=== PATIENT | male | born 1970 | race African-American/Black ===

== ENCOUNTER 2016-09-17 16:11 | Emergency (ER) | payer OTHER ==
[~2016-09-17] VITALS: Ht 172.7 cm; Wt 124.7 kg
--- OUTSIDE RECORDS SUMMARY | 2016-09-17 16:17 | XMS REPORT ---
Author Author MYCHAL MONDRAGON Organization [employer] Address Unknown Phone Unavailable Care Team Providers Care Kit Planner Name Role Phone MYCHAL MONDRAGON CP Unavailable Allergies No Known Allergies Problems Problem Type Condition Code Onset Dates Condition Status Problem Cellulitis and abscess of leg, except foot 682.6 Active Problem Unspecified otitis media 382.9 Active Problem Carpal tunnel syndrome of left wrist G56.02 Active Problem Impacted cerumen 380.4 Active Medications No Known Medications Results No Known Results Summary Purpose [employer] Submission
--- NOTE | 2016-09-17 16:36 | ED General ---
General Chief Complaint: General Problems/Pain Stated Complaint: R HIP AND L WRIST PAIN Source of Information: Patient Exam Limitations: No Limitations History of Present Illness Time Seen by Provider: 16:25 Initial Comments This 46-year-old gentleman presents to the emergency room with pain in his right hip and left wrist. These pains are actually chronic. He reports having an appointment already set up with Onesimo Jones at [facility]. He gives an inconsistent history regarding what vdzz-pij-yxrwocg medications he has tried and their efficacy. He reports having a history of carpal tunnel syndrome. He is ambulatory. He denies any trauma, strain, or recent injury of any kind. Allergies and Home Medications Allergies Coded Allergies: No Known Drug Allergies (Unverified , 09/17/16) Home Medications Gemfibrozil 600 Mg Tablet 600 MG PO HS (Reported) Tramadol HCl 50 Mg Tablet #10 50 MG PO Q6H PRN PRN PAIN Prescribed by: BOLA CABRERA on 09/17/16 9115 Constitutional: no symptoms reported EENTM: no symptoms reported Respiratory: no symptoms reported Cardiovascular: no symptoms reported Gastrointestinal: no symptoms reported Genitourinary: no symptoms reported Musculoskeletal: see HPI Skin: no symptoms reported Psychiatric/Neurological: Other (frequent twitching and dystonic movements noted) Hematologic/Lymphatic: No Symptoms Reported Past Bujngmr-Raglzq-Xovvgh Hx Patient Social History Alcohol Use: Denies Use Recreational Drug Use: No Smoking Status: Current Everyday Smoker Type Used: Cigarettes Recent Foreign Travel: No Contact w/Someone Who Travel: No Recent Hopitalizations: No Surgeries HX Surgeries: No Respiratory Hx Respiratory Disorders: No Cardiovascular Hx Cardiac Disorders: Yes Cardiac Disorders: High Cholesterol Neurological Hx Neurological Disorders: No Genitourinary Hx Genitourinary Disorders: No Gastrointestinal Hx Gastrointestinal Disorders: No Musculoskeletal Hx Musculoskeletal Disorders: Yes (carpal tunnel syndrome) Endocrine Hx Endocrine Disorders: No HEENT HX ENT Disorders: No Cancer Hx Cancer: No Psychosocial Hx Psychiatric Problems: No Physical Exam Vital Signs Vital Sign - Last 12Hours 09/17/16 16:20 Temp 98.1 Pulse 107 Resp 20 B/P 132/90 Pulse Ox 96 Capillary Refill : General Appearance: No Apparent Distress WD/WN Obese HEENT: PERRL/EOMI Normal ENT Inspection Respiratory: Lungs Clear Normal Breath Sounds No Accessory Muscle Use No Respiratory Distress Cardiovascular: Regular Rate, Rhythm No Edema No Murmur Extremity: Normal Inspection Normal Range of Motion Other (Tinel's and Phalen' s test positive. Minimal pain with external rotation of the right hip. 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 A short course of Ultram was prescribed to help hold him over until his primary care and orthopedic appointments. Departure Impression Impression: Primary Impression: Left wrist pain Additional Impression: Right hip pain Disposition: HOME, SELF-CARE Condition: Improved Departure-Patient Inst. Decision time for Depature: 16:35 Referrals: NO,LOCAL PHYSICIAN (PCP/Family) Primary Care Physician Patient Instructions: NO INSTRUCTIONS GIVEN Add. Discharge Instructions: You may take ibuprofen up to 800 mg every 8 hours as needed for pain. Add Tylenol (acetaminophen) up to 1000 mg every 6 hours as needed for additional pain relief. For pain that is not controlled by bozd-tyc-lgeypdf medications, use Ultram (tramadol) as prescribed. Follow-up with your primary care provider or orthopedic provider as soon as possible. All discharge instructions reviewed with patient and/or family. Voiced understanding. Scripts Tramadol HCl (Ultram)50 Mg [id number] Mg PO Q6H PRN PAIN #10 TAB Prov:BOLA BRINK MD 09/17/16 BOLA BRINK MD Sep 17, 2016 16:36
[2016-09-17] MEDS ORDERED: GEMF600T PO (16:37)
[2016-09-17] MEDS ORDERED: TRAM-42 PO (16:44)
[2016-09-17] MEDS ORDERED: KETOROLAC 60 MG/2 ML VIAL IM ONE (16:45)
[2016-09-17 16:53] VITALS: BP 132/90
== END 2016-09-17 16:53 | disposition home or self-care (01) ==
LOC: EDUNIT# 16:11 → ER 16:14
DX: M25.551 Pain in right hip (principal); M25.532 Pain in left wrist; F17.210 Nicotine dependence, cigarettes, uncomplicated
CPT/HCPCS: 96372; 99281

== ENCOUNTER 2016-09-27 04:46 | Emergency (ER) | payer OTHER ==
[~2016-09-27] VITALS: Ht 172.7 cm; Wt 124.7 kg
[~2016-09-27 04:46] MED LIST: GEMF600T PO; TRAM-42 PO
[2016-09-27 05:13] LABS: BILIRUBIN,URINE NEGATIVE (NEGATIVE); KETONES,URINE NEGATIVE (NEGATIVE); LEUKOCYTE ESTERASE ,URINE NEGATIVE (NEGATIVE); NITRITE,URINE NEGATIVE (NEGATIVE); PH,URINE 6 (5-9); PROTEIN,URINE 1+ (NEGATIVE); UROBILINOGEN,URINE NORMAL (NORMAL)
[2016-09-27 05:17] LABS: SQUAMOUS EPITHELIAL CELL,UR RARE /HPF; WBC,URINE RARE /HPF
--- NOTE | 2016-09-27 06:17 | Diagnostic Imaging Report ---
PROCEDURE: CT urinary tract, rule out kidney stone. TECHNIQUE: Multiple contiguous axial images were obtained through the abdomen and pelvis without the use of intravenous contrast. INDICATION: Urinary retention. FINDINGS: The lung bases are clear. The kidneys are symmetrical with smooth renal outlines. No renal calculi are present. No hydronephrosis. Ureters appear normal bilaterally. Bladder is empty. There is a calcification noted at the bladder on the left measuring 3 mm which could represent a nonobstructing ureteral calculus or a phlebolith. Bowel gas pattern appears normal throughout. The appendix is normal. There is no diverticulitis. There is no free air or free fluid. Liver appears normal. Gallbladder is normal. Pancreas and spleen are normal. The adrenal glands are normal. The lung bases are clear. IMPRESSION: Question of nonobstructing 3 mm calculus in the distal left ureter versus phlebolith. No other abnormalities noted. Dictated by: Dictated on workstation # [id number]
--- NOTE | 2016-09-27 06:21 | ED GU-Male ---
General Chief Complaint: -Male Stated Complaint: SHARP PAIN IN TESTICAL Nursing Triage Note: Reports 4 days of intermittant pain in L testicle region. Pt states tonight he just can not sleep r/t pain. Some change in urinary flow of not a good stream. Source: patient Exam Limitations: no limitations History of Present Illness Time seen by provider: 04:57 Initial Comments This patient presents to emergency room with pain in the left testicle. It has been intermittent for about 4 days and sharp in nature. Tonight it became more intense and he was unable to sleep. He has a feeling of urinary and fecal urgency. He reports a weak stream and only small quantities of urine production with each void. He feels a pressure in the rectal area and a persistent sensation to have a bowel movement. No fevers. No hematuria. Allergies and Home Medications Allergies Coded Allergies: No Known Drug Allergies (Unverified , 09/17/16) Home Medications Ciprofloxacin HCl 500 Mg Tablet #20 500 MG PO BID Prescribed by: BOLA CABRERA on 09/27/16 0630 Gemfibrozil 600 Mg Tablet 600 MG PO HS (Reported) Hydrocodone/Acetaminophen 1 Each Tablet #20 1-2 EACH PO Q6H PRN PRN PAIN Prescribed by: BOLA CABRERA on 09/27/16 0630 Tramadol HCl 50 Mg Tablet #10 50 MG PO Q6H PRN PRN PAIN Prescribed by: BOLA CABRERA on 09/17/16 1644 Constitutional: no symptoms reported EENTM: no symptoms reported Respiratory: no symptoms reported Cardiovascular: no symptoms reported Gastrointestinal: see HPI Genitourinary: see HPI Musculoskeletal: no symptoms reported Skin: no symptoms reported Psychiatric/Neurological: No Symptoms Reported Endocrine: No Symptoms Reported Past Kopyidz-Ngbhgk-Yobwac Hx Patient Social History Alcohol Use: Denies Use Recreational Drug Use: No Smoking Status: Current Everyday Smoker Type Used: Cigarettes 2nd Hand Smoke Exposure: No Recent Foreign Travel: No Contact w/Someone Who Travel: No Recent Infectious Disease Expo: No Recent Hopitalizations: No Seasonal Allergies Seasonal Allergies: No Surgeries HX Surgeries: No Respiratory Hx Respiratory Disorders: No Cardiovascular Hx Cardiac Disorders: Yes Cardiac Disorders: High Cholesterol Neurological Hx Neurological Disorders: No Reproductive System Hx Reproductive Disorders: No Genitourinary Hx Genitourinary Disorders: No Gastrointestinal Hx Gastrointestinal Disorders: No Musculoskeletal Hx Musculoskeletal Disorders: Yes (carpal tunnel syndrome, sciatica) Musculoskeletal Disorders: Arthritis Endocrine Hx Endocrine Disorders: Yes (borderline diabetes) HEENT HX ENT Disorders: No Cancer Hx Cancer: No Psychosocial Hx Psychiatric Problems: No Integumentary HX Skin/Integumentary Disorder: No Blood Transfusions Hx Blood Disorders: No Physical Exam Vital Signs Vital Sign - Last 12Hours 09/27/16 04:52 Temp 97.8 Pulse 82 Resp 20 B/P 156/103 Pulse Ox 99 O2 Delivery Room Air Capillary Refill : Less Than 3 Seconds General Appearance: WD/WN moderate distress HEENT: PERRL/EOMI pharynx normal Neck: normal inspection Cardiovascular: regular rate, rhythm no edema no murmur Respiratory: lungs clear normal breath sounds no respiratory distress no accessory muscle use Gastrointestinal: normal bowel sounds soft tenderness (left lower quadrant) Rectal: normal rectal tone tenderness Male: no hernia testicular tenderness (left) Extremities: normal inspection no pedal edema 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 no motor/sensory deficits alert normal mood/affect oriented x 3 Skin: normal color warm/dry Progress/Results/Core Measures Results/Orders Lab Results Laboratory Tests Test 09/27/16 05:00 Range/Units Urine Bacteria NEGATIVE /HPF Urine Bilirubin NEGATIVE NEGATIVE Urine Casts NONE /LPF Urine Clarity CLEAR Urine Color YELLOW Urine Crystals NONE /LPF Urine Culture Indicated NO Urine Glucose (UA) NEGATIVE NEGATIVE Urine Ketones NEGATIVE NEGATIVE Urine Leukocyte Esterase NEGATIVE NEGATIVE Urine Mucus SMALL H /LPF Urine Nitrite NEGATIVE NEGATIVE Urine Protein 1+ H NEGATIVE Urine RBC 2-5 H /HPF Urine RBC (Auto) 4+ H NEGATIVE Urine Specific [place] 1.015 L 1.016-1.022 Urine Squamous Epithelial Cells RARE /HPF Urine Urobilinogen NORMAL NORMAL MG/DL Urine WBC RARE /HPF Urine pH 6 5-9 My Orders Orders-BOLA BRINK MD Ua Culture If Indicated (09/27/16 04:56) Bladder Scan (09/27/16 05:03) Us Scrotum (Testicle) [id number] (09/27/16 05:21) Chlamydia Dna Urine Test (09/27/16 05:37) Neis Brayan Dna Urine Test (09/27/16 05:37) Ct Abd/Pelvis Wo(Kidney Stone) (09/27/16 06:03) Abdomen/Kub 1view (09/27/16 06:21) Ketorolac Injection (Toradol Injection) (09/27/16 06:30) Hydrocodone/Apap 5/325 Tablet (Lortab 5 (09/27/16 06:30) Medications Given in ED Current Medications Medications Dose Ordered Sig/Jeet Route Start Time Stop Time Status Last Admin Dose Admin Acetaminophen/ Hydrocodone Bitart 1 tab ONCE ONCE PO 09/27/16 06:30 09/27/16 06:31 DC 09/27/16 06:35 1 TAB Ketorolac Tromethamine 60 mg ONCE ONCE IM 09/27/16 06:30 09/27/16 06:31 DC 09/27/16 06:35 60 MG Vital Signs/I&O Vital Sign - Last 12Hours 09/27/16 09/27/16 09/27/16 04:52 06:35 06:35 Temp 97.8 97.8 97.8 Pulse 82 Resp 20 B/P 156/103 Pulse Ox 99 O2 Delivery Room Air Blood Pressure Mean: 120 Progress Note : Progress Note Bladder scan revealed no urinary retention. Patient's presentation was atypical for renal stone but ultimately CT was ordered due to the hematuria. Patient had tenderness on digital rectal exam which brought prostatitis into the differential. CT scan was ultimately performed revealing a small distal left ureteral stone. Patient's pain will be treated with a Toradol injection and hydrocodone. Departure Impression Impression: Primary Impression: Left ureteral stone Additional Impressions: Pain in left testicle Prostatitis Qualified Code: N41.0 - Acute prostatitis Epididymal cyst Disposition: 01 HOME, SELF-CARE Condition: Improved Departure-Patient Inst. Decision time for Depature: 06:15 Referrals: KAMINI GALLEGOS DO (PCP/Family) Primary Care Physician Patient Instructions: Kidney Stones in Adults, Prostatitis Add. Discharge Instructions: Drink lots of water and other clear liquids. Use the hydrocodone as prescribed for pain. Complete the entire course of your antibiotics. Return to the ER if symptoms worsen. Follow-up with your primary care provider within the next week. Strain your urine and take any stones collected to your doctor. All discharge instructions reviewed with patient and/or family. Voiced understanding. Scripts Ciprofloxacin HCl (Cipro)500 Mg [id number] Mg PO BID #20 TAB Prov:BOLA BRINK MD 09/27/16 Hydrocodone/Acetaminophen (Hydrocodon -Acetaminophen 5-325)1 Each Tablet1-2 Each PO Q6H PRN PAIN #20 TAB Prov:BOLA BRINK MD 09/27/16 Copy Copies To 1: KAMINI GALLEGOS JOSHUA T MD Sep 27, 2016 06:21
[2016-09-27] MEDS ORDERED: KETOROLAC 60 MG/2 ML VIAL IM ONE (06:30)
[2016-09-27] MEDS ORDERED: HYDROcodone/APAP 5 MG/325 MG (LORTAB) TAB PO ONE (06:30)
[2016-09-27] MEDS ORDERED: HYDR-3812 PO (06:30)
[2016-09-27] MEDS ORDERED: CIPR-225 PO (06:30)
--- NOTE | 2016-09-27 06:41 | Diagnostic Imaging Report ---
INDICATION: Left testicular pain. FINDINGS: Right testicle measures 4.1 x 2.8 x 4.5 cm. Left testicle measures 3.5 x 2.0 x 3.4 cm. There are no testicular masses. Normal blood flow to both testes. There is a cyst in the epididymis on the left measuring 1.2 cm in diameter. No evidence of varicocele or hydrocele. IMPRESSION: Epididymal cyst on the left measuring 1.2 cm. Dictated by: Dictated on workstation # [id number]
--- NOTE | 2016-09-27 06:46 | Diagnostic Imaging Report ---
INDICATION: Left testicular pain. FINDINGS: KUB shows no evidence of calculi overlying the renal outlines. No calcifications are seen along the ureteral path. Bowel gas pattern is normal. There is no organomegaly. IMPRESSION: Normal KUB. Dictated by: Dictated on workstation # [id number]
[2016-09-27 06:59] VITALS: BP 134/97
[2016-09-28 16:25] LABS: CHLAMYDIA DNA URINE Negative (Negative); NEISSERIA GONORRHEA DNA URINE Negative (Negative)
== END 2016-09-27 06:59 | disposition home or self-care (01) ==
LOC: EDUNIT# 04:46 → ER 04:49
DX: N50.812 Left testicular pain (principal); N50.3 Cyst of epididymis; N41.9 Inflammatory disease of prostate, unspecified; F17.210 Nicotine dependence, cigarettes, uncomplicated
CPT/HCPCS: 36415; 74000; 74176; 76870; 81000; 87491; 87591; 96372; 99283

== ENCOUNTER → 2016-11-08 | Outpatient (CLI) | payer SELFPAY ==
[~2016-11-08] MED LIST changes: +CIPR-225 PO; +HYDR-3812 PO
--- NOTE | 2016-11-08 15:53 | Diagnostic Imaging Report ---
PROCEDURE: MRI lumbar spine. TECHNIQUE: Multiplanar, multisequence MRI of the lumbar spine was performed without contrast. INDICATION: Back pain and right leg pain. FINDINGS: There is straightening of the upper lumbar spine curvature. This could be related to muscle spasm. The vertebral body heights are preserved. There is mild reactive marrow edema along the lower and upper endplates of L4 vertebral bodies compatible with degenerative related Modic type marrow changes. There is no suspicious marrow signal abnormality. Mild disc desiccation in the mid to lower lumbar spine levels is seen. The cauda equina and conus medullaris appear grossly unremarkable. T12/L1: There is no disc herniation, no spinal canal or foraminal stenosis. L1/2: No disc herniation. There is mild facet arthropathy. No central canal, lateral recess or foraminal stenosis. L2/3: No disc herniation. There is mild facet hypertrophy. No central canal, lateral recess or foraminal stenosis. L3/4: There is mild disc bulge and mild to moderate facet arthropathy. No central canal or lateral recess stenosis. There is bilateral mild to moderate foraminal stenosis. L4/5: There is a minimal disc bulge with a slightly prominent right foraminal component. There is bilateral moderate facet arthropathy worse on the right side. There is no central canal stenosis. The lateral recess demonstrate mild narrowing on the right and mild to moderate narrowing on the left. The foramina demonstrate moderate to severe stenosis on the left and severe stenosis on the right side. L5/S1: No significant disc herniation. There is mild facet hypertrophy. No central canal or lateral recess stenosis. There is bilateral mild foraminal stenosis. IMPRESSION: Relatively mild disc degenerative changes and moderate lower lumbar spine facet arthropathy. There is severe foraminal stenosis on the right at L4/5 level encroaching upon the exiting right L4 nerve roots. Other findings as above. Dictated by: Dictated on workstation # [id number]
== END ==
LOC: RAD 13:30
PROVIDERS: ATTEND Family Medicine
DX: M54.31 Sciatica, right side (principal)
CPT/HCPCS: 72148

== ENCOUNTER 2018-01-05 20:53 | Emergency (ER) | payer SELFPAY ==
[~2018-01-05] VITALS: Ht 172.7 cm; Wt 120.2 kg
[~2018-01-05 20:53] MED LIST changes: +ACHD5005 PO; -HYDR-3812 PO
--- OUTSIDE RECORDS SUMMARY | 2018-01-05 20:58 | XMS REPORT ---
Author Author CAEL UGALDE Organization [facility] Address [address] [place] [address] Care Team Providers Care Show Host Or Hostess Name Role Phone CALE UGALDE Unavailable PROBLEMS Type Condition ICD9-CM Code TKH61-AP Code Onset Dates Condition Status SNOMED Code Problem Left carpal tunnel syndrome G56.02 Active 883703774606261 Problem Carpal tunnel syndrome of left wrist G56.02 Active 46479634 Problem Other chronic pain G89.29 Active 92923947 Problem Lumbago with sciatica, right side M54.41 Active 704927996 Problem Hyperlipidemia, unspecified hyperlipidemia type E78.5 Active 19535931 Problem Degenerative disc disease at L5-S1 level M51.36 Active 54169644 Problem Arthritis M19.90 Active 7612609 Problem Intention tremor G25.2 Active 69498519 ALLERGIES No Information ENCOUNTERS Encounter Location Date Diagnosis [place] [id number] [place] [address]99[address] Oct, [facility] [id number] [place] [address] 34128- 6661 Sep, Other chronic pain G89.29 [facility] [id number] [place] [address] 35515- 9984 Sep, Degenerative disc disease at L5-S1 level M51.36 [facility] [address], [place] [id number] Aug, Lumbago with sciatica, right side M54.41 ; Other chronic pain G89.29 and BMI 40.0-44.9, adult Z68.41 [facility] [id number] [place] [address] 93815- 8244 Aug, Degenerative disc disease at L5-S1 level M51.36 [facility] [address] [address] Aug, Tooth abscess K04.7 [facility] [id number] [place] [address] 09276- 6637 Jul, Degenerative disc disease at L5-S1 level M51.36 [facility] [id number] [place] [address] 09952- 8956 Jun, [facility] [id number] [place] [address] 32117- 6348 Jun, Degenerative disc disease at L5-S1 level M51.36 [facility] [id number] [place] [address] 88963- 0296 Jun, Degenerative disc disease at L5-S1 level M51.36 [facility] [id number] [place] [address] 63885- 9448 May, Degenerative disc disease at L5-S1 level M51.36 [facility] [id number] [place] [address] 18441- 7710 Apr, Degenerative disc disease at L5-S1 level M51.36 ; Arthritis M19.90 and Intention tremor G25.2 [facility] [id number] [place] [address] 21626- 3978 Apr, Degenerative disc disease at L5-S1 level M51.36 [facility] [id number] [place] [address] 83688- 1710 Mar, [facility] [id number] [place] [address] 97580 254 Mar, [facility] [id number] [place] [address] 83291- 9184 Mar, Degenerative disc disease at L5-S1 level M51.36 [facility] [address] [place] [address] Feb, [facility] [id number] [place] [address] 19186- 1851 Feb, Degenerative disc disease at L5-S1 level M51.36 [facility] [address] [place] [address] Feb, [facility] [address] [place] [address] Jan, [facility] [address] [place] [address] Jan, Hyperlipidemia, unspecified hyperlipidemia type E78.5 ; Degenerative disc disease at L5-S1 level M51.36 ; Right hip pain M25.551 ; Piriformis syndrome, right G57.01 and Pre-diabetes R73.03 [facility] [id number] [place] [address] Jan, Degenerative disc disease at L5-S1 level M51.36 [facility] [address] [place] [address] Jan, [facility] [id number] [place] [address] 39164- 4254 Dec, Degenerative disc disease at L5-S1 level M51.36 ; Right hip pain M25.551 and Piriformis syndrome, right G57.01 [facility] [address] [place] [address] Dec, [facility] [address] [place] [address] Dec, [facility] [id number] [place] [address] 0[address] Dec, Degenerative disc disease at L5-S1 level M51.36 [facility] [address] [place] [address] November, [facility] [address] [place] [address] November, Right hip pain M25.551 and Hyperlipidemia, unspecified hyperlipidemia type E78.5 [facility] [id number] [place] [address] 26496- 7107 Aug, Acute right-sided low back pain without sciatica M54.5 and Oral lesion K13.70 [facility] [id number] [place] [address] 81786- 5520 Jul, Left carpal tunnel syndrome G56.02 [facility] [id number] [place] [address] 97417- 6884 Jun, [facility] [id number] [place] [address] 75242- 2629 May, Abscess L02.91 and Cough R05 [facility] [id number] [place] [address] 91023- 4930 May, [facility] [id number] [place] [address] 20956- 4792 May, [facility] [id number] [place] [address] 98250- 8673 May, [facility] [id number] [place] [address] 55590- 4325 May, Carpal tunnel syndrome of left wrist G56.02 [facility] [id number] [place] [address] 87560- 7335 Apr, [facility] [id number] [place] [address] 62285- 8223 Apr, Acute non-recurrent maxillary sinusitis J01.00 [facility] [id number] [place] [address] 83436- 6879 Oct, [facility] [id number] [place] [address] 09952- 5024 Oct, [facility] [address] [id number] Sep, [facility] [address], [place] [address] Sep, [facility] [address] [id number] Sep, [facility] [address] [facility] [id number] [address] Sep, [facility] [address] [facility] [id number], [place] [address] May, [facility] [address] [facility] [id number], [place] [address]26 May, [facility] [address] [facility] [id number], [place] [address]26 Apr, [facility] [address] [facility] [id number], [place] [address] 5866 Apr, [facility] [address] [facility] [id number], [place] [address] 2546 Feb, [facility] [id number] [address] 2546 Feb, [facility] [address] [id number] Dec, [facility] [address] [facility] [id number], [place] [address] Dec, [facility] [address] [id number] November, [facility] [address] [facility] [id number], [place] [address] November, IMMUNIZATIONS No Known Immunizations SOCIAL HISTORY Never Assessed REASON FOR VISIT Pain control PLAN OF CARE VITAL SIGNS MEDICATIONS Unknown Medications RESULTS No Results PROCEDURES No Known procedures INSTRUCTIONS MEDICATIONS ADMINISTERED No Known Medications MEDICAL (GENERAL) HISTORY Type Description Date Medical History borderline diabetes Medical History hyperlipidema
--- OUTSIDE RECORDS SUMMARY | 2018-01-05 20:58 | XMS REPORT ---
Author Author MYCHAL MONDRAGON Organization [employer] Address Unknown Phone Unavailable Care Team Providers Care Mask Designer Name Role Phone MYCHAL MONDRAGON CP Unavailable [...]
--- OUTSIDE RECORDS SUMMARY | 2018-01-05 20:58 | XMS REPORT ---
Author Author HANH CHAVEZ Organization [facility] Address [address] [place] [address] Care Team Providers Care Grape Cutter Name Role Phone HANH CHAVEZ Unavailable PROBLEMS Type Condition ICD9-CM Code [id number]-[id number] Code Onset Dates Condition Status SNOMED Code Problem Carpal tunnel syndrome of left wrist G56.02 Active 57081705 Problem Cellulitis and abscess of leg, except foot 682.6 Active 419209742 Assessment Abscess L02.91 May, Active 073237455 Assessment Cough R05 May, Active 42520740 Problem Unspecified otitis media 382.9 Active 84684361 Problem Impacted cerumen 380.4 Active 91890493 ALLERGIES Substance Reaction Event Type Date Status N.K.D.A. Unknown Non Drug Allergy May, Unknown SOCIAL HISTORY No smoking Hx information available PLAN OF CARE VITAL SIGNS Height 68 in 2016-06-14 Weight 274 lbs 2016-06-14 Heart Rate 88 bpm 2016-06-14 Respiratory Rate 20 2016-06-14 BMI 41.66 kg/m2 2016-06-14 Blood pressure systolic 110 mmHg 2016-06-14 Blood pressure diastolic 80 mmHg 2016-06-14 MEDICATIONS Medication Instructions Dosage Frequency Start Date End Date Duration Status Bactrim DS 800-160 MG Orally Twice a day 1 tablet 12h May,May 07 days Active Combivent Respimat 20-100 MCG/ACT Inhalation Four times a day 1 puff 6h May, Active RESULTS No Results PROCEDURES Procedure Date Ordered Related Diagnosis Body Site Office Visit, Est Pt., Level 3 Jun 14, 2016 IMMUNIZATIONS No Known Immunizations
--- OUTSIDE RECORDS SUMMARY | 2018-01-05 20:58 | XMS REPORT ---
Author Author HANNA BAKER [facility] Address [address] [place] [address] Care Team Providers Care Revenue Field Auditor Name Role Phone HANNA BAKER Unavailable PROBLEMS Type Condition ICD9-CM Code ZOY98-GO Code Onset Dates Condition Status SNOMED Code Problem Degenerative disc disease at L5-S1 level M51.36 Active 16978494 Problem Hyperlipidemia, unspecified hyperlipidemia type E78.5 Active 98641292 Problem Left carpal tunnel syndrome G56.02 Active 269246179117414 Problem Carpal tunnel syndrome of left wrist G56.02 Active 65321096 ALLERGIES Unknown Allergies SOCIAL HISTORY No smoking Hx information available PLAN OF CARE Activity Details Follow Up prn Reason: VITAL SIGNS Height 68 in 2016-08-03 Blood pressure systolic 142 mmHg 2016-08-03 Blood pressure diastolic 88 mmHg 2016-08-03 MEDICATIONS Unknown Medications RESULTS No Results PROCEDURES Procedure Date Ordered Related Diagnosis Body Site Office Visit, Est Pt., Level 3 Aug 03, 2016 IMMUNIZATIONS No Known Immunizations
--- OUTSIDE RECORDS SUMMARY | 2018-01-05 20:58 | XMS REPORT ---
Author Author CALE UGALDE Organization [facility] Address [address] [place] [address] Care Team Providers Care Arc Welding Machine Operator Name Role Phone CALE UGALDE Unavailable PROBLEMS Type Condition ICD9-CM Code ZRR79-VK Code Onset Dates Condition Status SNOMED Code Problem Left carpal tunnel syndrome G56.02 Active 865547089220756 Problem Carpal tunnel syndrome of left wrist G56.02 Active 49339777 Problem Other chronic pain G89.29 Active 67910070 Problem Lumbago with sciatica, right side M54.41 Active 413785549 Problem Hyperlipidemia, unspecified hyperlipidemia type E78.5 Active 67483085 Problem Degenerative disc disease at L5-S1 level M51.36 Active 97135299 Problem Arthritis M19.90 Active 3496486 Problem Intention tremor G25.2 Active 43538864 ALLERGIES No Information ENCOUNTERS Encounter Location Date Diagnosis [place] [id number] [address] November, [facility] [id number] [place] [address]246- 7588 Oct, [facility] [id number] [place] [address] 85127- 6696 Oct, [facility] [address] [address] Oct, [facility] [address] [address] Oct, Lumbago with sciatica, right side M54.41 ; Degenerative disc disease at L5-S1 level M51.36 and BMI 40.0-44.9, adult Z68.41 [facility] [address] [address]- [address] Sep, Other chronic pain G89.29 [facility] [id number] [place] [address] 52863- 3403 Sep, Degenerative disc disease at L5-S1 level M51.36 [facility] [address] [place] [id number] Aug, Lumbago with sciatica, right side M54.41 ; Other chronic pain G89.29 and BMI 40.0-44.9, adult Z68.41 [facility] [id number] [place] [address] 35015- 6684 Aug, Degenerative disc disease at L5-S1 level M51.36 [place] [address] [address]- [address] Aug, Tooth abscess K04.7 [facility] [id number] [place] [address] 47396- 6394 Jul, Degenerative disc disease at L5-S1 level M51.36 [facility] [id number] [place] [address] 34055- 3978 Jun, [facility] [address] [address]- 1176 Jun, Degenerative disc disease at L5-S1 level M51.36 [facility] [id number] [place] [address] 82615- 0840 Jun, Degenerative disc disease at L5-S1 level M51.36 [facility] [id number] [place] [address] 75091- 3951 May, Degenerative disc disease at L5-S1 level M51.36 [facility] [id number] [place] [address] 37015- 5273 Apr, Degenerative disc disease at L5-S1 level M51.36 ; Arthritis M19.90 and Intention tremor G25.2 [facility] [id number] [place] [address] 71110- 5335 Apr, Degenerative disc disease at L5-S1 level M51.36 [facility] [address] [address] Mar, [facility] [id number] [place] [address] 10634- 5830 Mar, [facility] [id number] [place] [address] 08178- 5445 Mar, Degenerative disc disease at L5-S1 level M51.36 [facility] [id number] [place] [address] 26388- 1571 Feb, [facility] [id number] [place] [address] 76580- 5388 Feb, Degenerative disc disease at L5-S1 level M51.36 [facility] [id number] [place] [address] 62729- 9878 Feb, [facility] [id number] [place] [address] 83682- 5041 Jan, [facility] [address] [place] [address] 42755- 2298 Jan, Hyperlipidemia, unspecified hyperlipidemia type E78.5 ; Degenerative disc disease at L5-S1 level M51.36 ; Right hip pain M25.551 ; Piriformis syndrome, right G57.01 and Pre-diabetes R73.03 [facility] [address] [address] 5988 Jan, Degenerative disc disease at L5-S1 level M51.36 [facility] [address] [address] 77[address] Jan, [facility] [id number] [place] [address] 53950- 5022 Dec, Degenerative disc disease at L5-S1 level M51.36 ; Right hip pain M25.551 and Piriformis syndrome, right G57.01 [facility] [id number] [place] [address] 66652- 4189 Dec, [facility] [id number] [place] [address] 17410- 8880 Dec, [facility] [address] 21597- 6715 Dec, Degenerative disc disease at L5-S1 level M51.36 [place] [address] [address]107- 7874 November, [place] [address] 9[address]33- 2193 November, Right hip pain M25.551 and Hyperlipidemia, unspecified hyperlipidemia type E78.5 [place] [address] 77755- 6939 Aug, Acute right-sided low back pain without sciatica M54.5 and Oral lesion K13.70 [place] [address] 06690- 7778 Jul, Left carpal tunnel syndrome G56.02 [place] [address] [place] [id number] [place] [address] 78942- 7161 Jun, [place] [address] 14132- 3774 May, Abscess L02.91 and Cough R05 [place] [address] [id number] [place] [address] 64550- 6550 May, [facility] [address] 56217- 5677 May, [facility] [address] [place] [address] [id number] [place] [address] 98364- 0141 May, [place] [address] [id number] [place] [address] 34731- 2966 May, Carpal tunnel syndrome of left wrist G56.02 [facility] [address] 57[address]- 0981 Apr, [facility] [address] [id number] [place] [address]- [address] 07 Apr, 2016 Acute non-recurrent maxillary sinusitis J01.00 [facility] [address] [id number] [place] [address]- 75[address] 14 Oct, 2014 [facility] [address] [id number] [place] [address]46 Oct, [facility] [address] [place] [id number] Sep, [facility] [address] [id number] [place] [address]- 2546 Sep, [facility] [address] [id number] Sep, [facility] [address] [id number] [place] [address]- 3556 Sep, [facility] [address] [id number] [place] [address]- 6026 May, [facility] [address] [id number] [place] [address]- 5866 May, [facility] [address] [id number] [place] [address]- 1776 Apr, [facility] [address] [id number] [address]- 3[address] Apr, [facility] [address] [id number] [place] [address]- 2546 Feb, [facility] [address] [id number] [place] [address]- 2546 Feb, [facility] [address] [place] [id number] Dec, [facility] [address] [id number] [address]- 2546 Dec, [facility] [address] [place] [id number] November, [facility] [address] [facility] [id number] [place] November, IMMUNIZATIONS No Known Immunizations SOCIAL HISTORY Never Assessed REASON FOR VISIT hydrocodone 04/10 PLAN OF CARE VITAL SIGNS MEDICATIONS Medication Instructions Dosage Frequency Start Date End Date Duration Status Hydrocodone-Acetaminophen 5-325 MG Orally 2 times a day 1 tablet as needed 12h 19 Mar, 2017 Active RESULTS No Results PROCEDURES No Known procedures INSTRUCTIONS MEDICATIONS ADMINISTERED No Known Medications MEDICAL (GENERAL) HISTORY Type Description Date Medical History borderline diabetes Medical History hyperlipidema
--- OUTSIDE RECORDS SUMMARY | 2018-01-05 20:59 | XMS REPORT ---
Author Author MYCHAL MONDRAGON Organization [employer] Address Unknown Phone Unavailable Care Team Providers Care Dispensing Lead Name Role Phone MYCHAL MONDRAGON CP Unavailable [...]
--- OUTSIDE RECORDS SUMMARY | 2018-01-05 20:59 | XMS REPORT ---
Author Author CALE UGALDE Organization [facility] Address [address] [place] [address] Care Team Providers Care Drill Rig Operator Helper Name Role Phone CALE UGALDE Unavailable PROBLEMS Type Condition ICD9-CM Code PQZ50-LU Code Onset Dates Condition Status SNOMED Code Problem Left carpal tunnel syndrome G56.02 Active 318445027298254 Problem Carpal tunnel syndrome of left wrist G56.02 Active 75442154 Problem Other chronic pain G89.29 Active 50322838 Problem Lumbago with sciatica, right side M54.41 Active 911504429 Problem Hyperlipidemia, unspecified hyperlipidemia type E78.5 Active 28533534 Problem Degenerative disc disease at L5-S1 level M51.36 Active 90654705 Problem Arthritis M19.90 Active 4598222 Problem Intention tremor G25.2 Active 24383814 ALLERGIES No Known Allergies ENCOUNTERS Encounter Location Date Diagnosis [place] [address] [place] [id number] [place] [address]17- 6580 Oct, [place] [address] [address]- [address]85 Sep, Other chronic pain G89.29 [facility] [id number] [place] [address] 24351- 0629 Sep, Degenerative disc disease at L5-S1 level M51.36 [facility] [address] [id number] Aug, Lumbago with sciatica, right side M54.41 ; Other chronic pain G89.29 and BMI 40.0-44.9, adult Z68.41 [facility] [id number] [place] [address] 20009- 9905 Aug, Degenerative disc disease at L5-S1 level M51.36 [facility] [address] 05374- 5564 Aug, Tooth abscess K04.7 [facility] [id number] [place] [address] 05233- 5111 Jul, Degenerative disc disease at L5-S1 level M51.36 [facility] [id number] [place] [address] 08435- 7708 Jun, [facility] [address] [place] [id number] [place] [address] 64853- 7307 Jun, Degenerative disc disease at L5-S1 level M51.36 [facility] [address] [place] [id number] [place] [address] 94409- 8484 Jun, Degenerative disc disease at L5-S1 level M51.36 [facility] [address] [place] [id number] [place] [address] 03693- 5543 May, Degenerative disc disease at L5-S1 level M51.36 [facility] [address] [place] [id number] [place] [address] 34171- 1797 Apr, Degenerative disc disease at L5-S1 level M51.36 ; Arthritis M19.90 and Intention tremor G25.2 [facility] [address] [place] [id number] [place] [address] 58964- 5927 Apr, Degenerative disc disease at L5-S1 level M51.36 [facility] [address] [place] [id number] [place] [address] 25046- 7107 Mar, [facility] [id number] [place] [address] 37321- 6882 Mar, [facility] [id number] [place] [address] 29151- 3324 Mar, Degenerative disc disease at L5-S1 level M51.36 [facility] [address] [place] [address] 68498- 7670 Feb, [facility] [address] [place] [id number] [place] [address] 50027- 7649 Feb, Degenerative disc disease at L5-S1 level M51.36 [facility] [address], [place] [address]- 2796 Feb, [facility] [address], [place] [address]- 7355 Jan, [facility] [address] [id number] [address]- 2108 Jan, Hyperlipidemia, unspecified hyperlipidemia type E78.5 ; Degenerative disc disease at L5-S1 level M51.36 ; Right hip pain M25.551 ; Piriformis syndrome, right G57.01 and Pre-diabetes R73.03 [facility] [id number] [address]- 8160 Jan, Degenerative disc disease at L5-S1 level M51.36 [facility] [address] [id number] [address]- 5064 Jan, [facility] [address] [id number] [place] [address] 56760- 1232 Dec, Degenerative disc disease at L5-S1 level M51.36 ; Right hip pain M25.551 and Piriformis syndrome, right G57.01 [facility] [address], [place] [address]- 0904 Dec, [facility] [address], [place] [address]- 3040 Dec, [facility] [id number] [address]- 1207 Dec, Degenerative disc disease at L5-S1 level M51.36 [facility] [address], [place] [address]- 1238 November, [facility] [address], [place] [address]- 6951 November, Right hip pain M25.551 and Hyperlipidemia, unspecified hyperlipidemia type E78.5 [facility] [id number] [place] [address] 13495- 5721 Aug, Acute right-sided low back pain without sciatica M54.5 and Oral lesion K13.70 [facility] [id number] [place] [address] 68080- 3818 Jul, Left carpal tunnel syndrome G56.02 [facility] [id number] [place] [address] 36879- 8222 Jun, [facility] [id number] [place] [address] 64442- 0161 May, Abscess L02.91 and Cough R05 [facility] [id number] [place] [address] 73421- 5293 May, [facility] [id number] [place] [address] 54961- 1469 May, [facility] [id number] [place] [address] 44065- 5760 May, [facility] [id number] [place] [address] 90195- 5830 May, Carpal tunnel syndrome of left wrist G56.02 [facility] [id number] [place] [address] 31523- 9965 Apr, [facility] [id number] [place] [address] 30725- 4505 Apr, Acute non-recurrent maxillary sinusitis J01.00 [facility] [address] [place] [address] 96736- 5967 Oct, [facility] [id number] [place] [address] 84175- 3011 Oct, [facility] [address] [id number] Sep, [facility] [address], [place] [address]- 7127 Sep, [facility] [address] [id number] Sep, [facility] [address] [facility] [id number], [place] [address] 2546 Sep, [facility] [address] [facility] [id number], [place] [address] 2546 May, [facility] [address] [facility] [id number], [place] [address]- 4236 May, [facility] [address] [facility] [id number], [place] [address] 2546 Apr, [facility] [address] [facility] [id number], [place] [address]- 2576 Apr, [facility] [id number], [place] [address] 2546 Feb, [facility] [id number], [place] [address] 2546 Feb, [facility] [address] [id number] Dec, [facility] [id number], [place] [address]- 2546 Dec, [facility] [address] [id number] November, [facility] [address] [facility] [id number], [place] [address]- 2546 November, IMMUNIZATIONS No Known Immunizations SOCIAL HISTORY Never Assessed REASON FOR VISIT DCF physical, PT has paperwork to be filled out from the last ALEJANDRA Guzman MA PLAN OF CARE Activity Details Follow Up Regular appt with Leonor Reason: VITAL SIGNS Height 68 in 2017-02-01 Weight 240.1 lbs 2017-02-01 Temperature 98.3 degrees Fahrenheit 2017-02-01 Heart Rate 78 bpm 2017-02-01 Respiratory Rate 18 2017-02-01 BMI 36.50 kg/m2 2017-02-01 Blood pressure systolic 136 mmHg 2017-02-01 Blood pressure diastolic 86 mmHg 2017-02-01 MEDICATIONS Medication Instructions Dosage Frequency Start Date End Date Duration Status Lopid 600 MG Orally Twice a day 1 tablet 12h 30 days Active Hydrocodone-Acetaminophen 5-325 MG Orally 2 times a day 1 tablet as needed 12h 29 Dec, 2016 Active Ibuprofen 800 MG Orally Three times a day 1 tablet with food or milk 8h Dec, Feb, Active Lyrica 150 MG Orally Twice a day 1 capsule 12h Active RESULTS No Results PROCEDURES No Known procedures INSTRUCTIONS MEDICATIONS ADMINISTERED No Known Medications MEDICAL (GENERAL) HISTORY Type Description Date Medical History borderline diabetes Medical History hyperlipidema
--- OUTSIDE RECORDS SUMMARY | 2018-01-05 20:59 | XMS REPORT ---
Author Author PO JOHNSTON Organization [employer] Address Unknown Phone Unavailable Care Team Providers Care Bread Slicer Machine Name Role Phone PO JOHNSTON CP Unavailable Allergies No Known Allergies Problems Problem Type Condition Code Onset Dates Condition Status Problem Unspecified otitis media 382.9 Active Problem Impacted cerumen 380.4 Active Problem Cellulitis and abscess of leg, except foot 682.6 Active Medications No Known Medications Results No Known Results Summary Purpose [employer] Submission
--- OUTSIDE RECORDS SUMMARY | 2018-01-05 20:59 | XMS REPORT ---
Author Author CALE UGALDE Organization [facility] Address [address] [place] [address] Care Team Providers Care Halfway House Counselor Name Role Phone CALE UGALDE Unavailable PROBLEMS Type Condition ICD9-CM Code HEA68-WA Code Onset Dates Condition Status SNOMED Code Problem Left carpal tunnel syndrome G56.02 Active 867370500694189 Problem Carpal tunnel syndrome of left wrist G56.02 Active 80124026 Problem Other chronic pain G89.29 Active 19595510 Problem Lumbago with sciatica, right side M54.41 Active 273315925 Problem Hyperlipidemia, unspecified hyperlipidemia type E78.5 Active 49728405 Problem Degenerative disc disease at L5-S1 level M51.36 Active 03324841 Problem Arthritis M19.90 Active 8227841 Problem Intention tremor G25.2 Active 84920057 ALLERGIES No Information ENCOUNTERS Encounter Location Date Diagnosis [facility] [id number] [place] [address] 68364- 5322 Oct, Lumbago with sciatica, right side M54.41 ; Degenerative disc disease at L5-S1 level M51.36 and BMI 40.0-44.9, adult Z68.41 [facility] [id number] [place] [address] 67006- 3429 Sep, Other chronic pain G89.29 [facility] [id number] [place] [address] 53081- 1781 Sep, Degenerative disc disease at L5-S1 level M51.36 [facility] [address] [place] [id number] Aug, Lumbago with sciatica, right side M54.41 ; Other chronic pain G89.29 and BMI 40.0-44.9, adult Z68.41 [facility] [id number] [place] [address] 48216- 4664 Aug, Degenerative disc disease at L5-S1 level M51.36 [facility] [id number] [place] [address] 46162- 7364 Aug, Tooth abscess K04.7 [facility] [id number] [place] [address] 02189- 5519 Jul, Degenerative disc disease at L5-S1 level M51.36 [facility] [id number] [place] [address] 43356- 0688 Jun, [facility] [id number] [place] [address] 38083- 2303 Jun, Degenerative disc disease at L5-S1 level M51.36 [facility] [id number] [place] [address] 68149- 5599 Jun, Degenerative disc disease at L5-S1 level M51.36 [facility] [id number] [place] [address] 72411- 8000 May, Degenerative disc disease at L5-S1 level M51.36 [facility] [id number] [place] [address] 71981- 0917 Apr, Degenerative disc disease at L5-S1 level M51.36 ; Arthritis M19.90 and Intention tremor G25.2 [facility] [id number] [place] [address] 27543- 3740 Apr, Degenerative disc disease at L5-S1 level M51.36 [facility] [address] [place] [address] 06679- 5670 Mar, [facility] [id number] [place] [address] 62874- 0841 28 Mar, 2017 [facility] [id number] [place] [address] 71838- 2401 18 Mar, 2017 Degenerative disc disease at L5-S1 level M51.36 [facility] [id number] [place] [address] 98482- 4026 Feb, [facility] [address] [address]- 8964 Feb, Degenerative disc disease at L5-S1 level M51.36 [facility] [address] [address] 9301 Feb, [facility] [address] [address]- 6[address] Jan, [facility] [address] [address]- 0660 Jan, Hyperlipidemia, unspecified hyperlipidemia type E78.5 ; Degenerative disc disease at L5-S1 level M51.36 ; Right hip pain M25.551 ; Piriformis syndrome, right G57.01 and Pre-diabetes R73.03 [facility] [id number] [address] 9227 Jan, Degenerative disc disease at L5-S1 level M51.36 [facility] [address] [address]- 7771 Jan, [facility] [id number] [address]- 4798 Dec, Degenerative disc disease at L5-S1 level M51.36 ; Right hip pain M25.551 and Piriformis syndrome, right G57.01 [facility] [address] [address] 9082 Dec, [facility] [address] [address]- 0508 Dec, [facility] [id number] [address]- 9350 Dec, Degenerative disc disease at L5-S1 level M51.36 [facility] [address] [address]- 0360 November, [facility] [address] 39120- 1877 November, Right hip pain M25.551 and Hyperlipidemia, unspecified hyperlipidemia type E78.5 [place] [address] 84933- 7320 Aug, Acute right-sided low back pain without sciatica M54.5 and Oral lesion K13.70 [place] [address] 25191- 7508 Jul, Left carpal tunnel syndrome G56.02 [facility] [address] 00682- 4111 Jun, [facility] [address] 25384- 4169 May, Abscess L02.91 and Cough R05 [place] [address] 14634- 1676 May, [facility] [address] 38276- 2067 May, [facility] [address] 00445- 9126 May, [facility] [id number] [place] [address] 87988- 8392 May, Carpal tunnel syndrome of left wrist G56.02 [facility] [address] 63131- 7480 Apr, [facility] [id number] [place] [address] 40177- 5306 Apr, Acute non-recurrent maxillary sinusitis J01.00 [facility] [address] 62340- 9296 14 Oct, 2014 [facility] [id number] [place] [address] 73655- 2825 13 Oct, 2014 [facility] [address] [id number] Sep, [facility] [address] [facility] [id number], [place] [address] 6366 Sep, [facility] [address] [id number] Sep, [facility] [address] [id number], [place] [address] 2546 Sep, [facility] [address] [facility] [id number], [place] [address] May, [facility] [address] [id number] [place] [address]- 8236 May, [facility] [address] [facility] [id number], [place] [address]- 2546 Apr, [facility] [address] [facility] [id number], [place] [address]- 2546 Apr, [facility] [address] [facility] [id number], [place] [address]- 2546 Feb, [facility] [address] [facility] [id number], [place] [address]- 2546 Feb, [facility] [address] [place] [id number] Dec, [facility] [address] [facility] [id number], [place] [address]- 2546 Dec, [facility] [address] [id number] November, [facility] [address] [facility] [id number], [place] [address]- 2546 November, IMMUNIZATIONS No Known Immunizations SOCIAL HISTORY Never Assessed REASON FOR VISIT LVM PLAN OF CARE VITAL SIGNS MEDICATIONS No Known Medications RESULTS No Results PROCEDURES No Known procedures INSTRUCTIONS MEDICATIONS ADMINISTERED No Known Medications MEDICAL (GENERAL) HISTORY Type Description Date Medical History borderline diabetes Medical History hyperlipidema
--- OUTSIDE RECORDS SUMMARY | 2018-01-05 20:59 | XMS REPORT ---
Author Author VICKIEPO Organization [facility] Address [address] [place] [address] Care Team Providers Care Superintendent Maintenance [employer] Name Role Phone JOHNSTONPO Tong Unavailable PROBLEMS Type Condition ICD9-CM Code [id number] Code Onset Dates Condition Status SNOMED Code Problem Degenerative disc disease at L5-S1 level M51.36 Active 51671213 Problem Hyperlipidemia, unspecified hyperlipidemia type E78.5 Active 10453902 Problem Left carpal tunnel syndrome G56.02 Active 602913250047418 Problem Carpal tunnel syndrome of left wrist G56.02 Active 01220091 ALLERGIES No Known Allergies SOCIAL HISTORY Never Assessed PLAN OF CARE Activity Details Follow Up prn Reason: VITAL SIGNS Height 68 in 2016-09-19 Weight 276 lbs 2016-09-19 Temperature 98.2 degrees Fahrenheit 2016-09-19 Heart Rate 100 bpm 2016-09-19 Respiratory Rate 20 2016-09-19 BMI 41.96 kg/m2 2016-09-19 Blood pressure systolic 144 mmHg 2016-09-19 Blood pressure diastolic 72 mmHg 2016-09-19 MEDICATIONS Medication Instructions Dosage Frequency Start Date End Date Duration Status Lopid 600 MG Orally Twice a day 1 tablet 12h Active RESULTS Name Result Date Reference Range CULTURE, VIRAL 2016-09-19 Viral Culture, General No virus isolated. Xray : Spine, Lumbar 2-3 views (IN HOUSE) 2016-09-19 PROCEDURES Procedure Date Ordered Result Body Site X-RAY EXAM OF LOWER SPINE Sep 19, 2016 DEPO MEDROL 40 MG/ML Sep 19, 2016 VIRUS INOCULATION, TISSUE Sep 19, 2016 IMMUNIZATIONS Vaccine Route Administration Date Status DEPO MEDROL 40 MG/ML IM Intramuscular Sep 19, 2016 Administered MEDICAL (GENERAL) HISTORY Type Description Date Medical History borderline diabetes Medical History hyperlipidema
--- OUTSIDE RECORDS SUMMARY | 2018-01-05 20:59 | XMS REPORT ---
Author Author OMAR SANCHEZ [facility] Address [address] [place] [address] Care Team Providers Care Putty Glazer Name Role Phone OMAR SANCHEZ Unavailable PROBLEMS Type Condition ICD9-CM Code OYV13-FY Code Onset Dates Condition Status SNOMED Code Problem Arthritis M19.90 Active 9799330 Problem Intention tremor G25.2 Active 96766916 Problem Left carpal tunnel syndrome G56.02 Active 736736347320571 Problem Carpal tunnel syndrome of left wrist G56.02 Active 71900773 Problem Hyperlipidemia, unspecified hyperlipidemia type E78.5 Active 54333250 Problem Degenerative disc disease at L5-S1 level M51.36 Active 04735840 ALLERGIES No Information SOCIAL HISTORY Never Assessed PLAN OF CARE VITAL SIGNS MEDICATIONS Unknown Medications RESULTS No Results PROCEDURES No Known procedures IMMUNIZATIONS No Known Immunizations MEDICAL (GENERAL) HISTORY Type Description Date Medical History borderline diabetes Medical History hyperlipidema
--- OUTSIDE RECORDS SUMMARY | 2018-01-05 20:59 | XMS REPORT ---
Author Author CALE UGALDE Organization [facility] Address [address] [place] [address] Care Team Providers Care Hand Leather Trimmer Name Role Phone CALE UGALDE Unavailable PROBLEMS Type Condition ICD9-CM Code WPA06-TG Code Onset Dates Condition Status SNOMED Code Problem Left carpal tunnel syndrome G56.02 Active 424894274275545 Problem Carpal tunnel syndrome of left wrist G56.02 Active 88492064 Problem Other chronic pain G89.29 Active 53025019 Problem Lumbago with sciatica, right side M54.41 Active 433333215 Problem Hyperlipidemia, unspecified hyperlipidemia type E78.5 Active 46743289 Problem Degenerative disc disease at L5-S1 level M51.36 Active 09087798 Problem Arthritis M19.90 Active 8297171 Problem Intention tremor G25.2 Active 46454595 ALLERGIES No Information ENCOUNTERS Encounter Location Date Diagnosis [place] [id number] [place] [address] 76277- 6264 Dec, [facility] [id number] [place] [address] 40139- 0252 Dec, [facility] [id number] [place] [address] 96661- 2065 November, [facility] [id number] [place] [address] 62935- 8800 Oct, [facility] [id number] [place] [address] 78271- 2484 Oct, [facility] [id number] [place] [address] 82068- 0330 Oct, [facility] [id number] [place] [address] 21529- 5554 Oct, Lumbago with sciatica, right side M54.41 ; Degenerative disc disease at L5-S1 level M51.36 and BMI 40.0-44.9, adult Z68.41 [facility] [id number] [place] [address] 49202- 3097 Sep, Other chronic pain G89.29 [facility] [id number] [place] [address] 14029- 5650 Sep, Degenerative disc disease at L5-S1 level M51.36 [facility] [address] [id number] Aug, Lumbago with sciatica, right side M54.41 ; Other chronic pain G89.29 and BMI 40.0-44.9, adult Z68.41 [place] [id number] [place] [address] 28867- 8234 Aug, Degenerative disc disease at L5-S1 level M51.36 [place] [address] 24051- 3110 Aug, Tooth abscess K04.7 [facility] [address] 78529- 7785 Jul, Degenerative disc disease at L5-S1 level M51.36 [facility] [id number] [place] [address] 03360- 0504 Jun, [place] [id number] [place] [address] 59242- 2821 Jun, Degenerative disc disease at L5-S1 level M51.36 [facility] [id number] [place] [address] 07918- 1193 Jun, Degenerative disc disease at L5-S1 level M51.36 [facility] [id number] [place] [address] 64604- 3109 May, Degenerative disc disease at L5-S1 level M51.36 [facility] [id number] [place] [address] 04045- 2234 Apr, Degenerative disc disease at L5-S1 level M51.36 ; Arthritis M19.90 and Intention tremor G25.2 [facility] [id number] [place] [address] 46458- 6844 Apr, Degenerative disc disease at L5-S1 level M51.36 [facility] [id number] [place] [address] 03951- 0735 Mar, [facility] [id number] [place] [address] 27857- 4305 Mar, [facility] [id number] [place] [address] 28335- 1464 Mar, Degenerative disc disease at L5-S1 level M51.36 [facility] [id number] [place] [address] 74406- 2502 Feb, [facility] [id number] [place] [address] 62063- 1586 Feb, Degenerative disc disease at L5-S1 level M51.36 [facility] [id number] [place] [address] 71883- 9941 Feb, [facility] [id number] [place] [address] 22580- 7284 Jan, [facility] [id number] [place] [address] 15342- 0599 Jan, Hyperlipidemia, unspecified hyperlipidemia type E78.5 ; Degenerative disc disease at L5-S1 level M51.36 ; Right hip pain M25.551 ; Piriformis syndrome, right G57.01 and Pre-diabetes R73.03 [facility] [id number] [place] [address] 64190- 2905 Jan, Degenerative disc disease at L5-S1 level M51.36 [facility] [id number] [address]- 3069 Jan, [facility] [id number] [place] [address] 68224- 8594 Dec, Degenerative disc disease at L5-S1 level M51.36 ; Right hip pain M25.551 and Piriformis syndrome, right G57.01 [place] [id number] [place] [address] 40455- 2347 Dec, [place] [id number] [place] [address] 36845- 6370 Dec, [facility] [address] 99119- 6090 Dec, Degenerative disc disease at L5-S1 level M51.36 [place] [address] 37753- 3029 November, [place] [address] 81027- 2642 November, Right hip pain M25.551 and Hyperlipidemia, unspecified hyperlipidemia type E78.5 [place] [address] 45602- 4551 Aug, Acute right-sided low back pain without sciatica M54.5 and Oral lesion K13.70 [place] [id number] [place] [address] 35895- 5987 Jul, Left carpal tunnel syndrome G56.02 [place] [id number] [place] [address] 83025- 3013 Jun, [place] [address] 64142- 4441 May, Abscess L02.91 and Cough R05 [place] [id number] [place] [address] 53440- 3147 May, [place] [address] 18985- 7005 May, [place] [id number] [place] [address] 01388- 7199 May, [place] [address] [place] [address]- 1523 May, Carpal tunnel syndrome of left wrist G56.02 [facility] [address] [id number] [place] [address]- 6416 Apr, [facility] [address] [id number] [place] [address]- 2506 07 Apr, 2016 Acute non-recurrent maxillary sinusitis J01.00 [facility] [address] [id number] [place] [address]- 5146 14 Oct, 2014 [facility] [address] [id number] [place] [address]- 7709 Oct, [facility] [address] [place] [id number] Sep, [facility] [address] [facility] [id number] [place] [address]- 2075 Sep, [facility] [address] [place] [place] [id number] Sep, [facility] [address] [id number] [place] [address]- 0006 Sep, [facility] [address] [id number] [place] [address]- 9266 May, [facility] [address] [id number] [place] [address]- 0280 May, [facility] [address] [id number] [place] [address]- 7627 Apr, [facility] [address] [id number] [place] [address]- 6182 Apr, [facility] [address] [id number] [place] [address]- 5036 Feb, [facility] [address] [id number] [place] [address]- 2546 Feb, [facility] [address] [place] [id number] Dec, [facility] [address] [facility] [id number] [place] [address]- 9073 Dec, [facility] [address] [id number] November, [facility] [address] [facility] [id number] [place] [address] November, IMMUNIZATIONS No Known Immunizations SOCIAL HISTORY Never Assessed REASON FOR VISIT Medication refill request PLAN OF CARE VITAL SIGNS MEDICATIONS Unknown Medications RESULTS No Results PROCEDURES No Known procedures INSTRUCTIONS MEDICATIONS ADMINISTERED No Known Medications MEDICAL (GENERAL) HISTORY Type Description Date Medical History borderline diabetes Medical History hyperlipidema
--- OUTSIDE RECORDS SUMMARY | 2018-01-05 20:59 | XMS REPORT ---
Author Author CALE UGALDE Organization [facility] Address [address] [place] [address] Care Team Providers Care Manager Of Compliance Name Role Phone CALE UGALDE Unavailable PROBLEMS Type Condition ICD9-CM Code SHB20-XX Code Onset Dates Condition Status SNOMED Code Problem Left carpal tunnel syndrome G56.02 Active 723254080344395 Problem Carpal tunnel syndrome of left wrist G56.02 Active 20723059 Problem Other chronic pain G89.29 Active 40539160 Problem Lumbago with sciatica, right side M54.41 Active 748188085 Problem Hyperlipidemia, unspecified hyperlipidemia type E78.5 Active 81818245 Problem Degenerative disc disease at L5-S1 level M51.36 Active 23456255 Problem Arthritis M19.90 Active 9137148 Problem Intention tremor G25.2 Active 01011348 ALLERGIES No Known Allergies ENCOUNTERS Encounter Location Date Diagnosis [facility] [address] [address] November, [facility] [address] [address] Oct, [facility] [id number] [place] [address] 67052- 6369 Oct, [facility] [address] [address] Oct, [facility] [address] [address] Oct, Lumbago with sciatica, right side M54.41 ; Degenerative disc disease at L5-S1 level M51.36 and BMI 40.0-44.9, adult Z68.41 [facility] [address] [address] Sep, Other chronic pain G89.29 [facility] [id number] [place] [address] 87827- 2783 Sep, Degenerative disc disease at L5-S1 level M51.36 [facility] [address] [place] [id number] Aug, Lumbago with sciatica, right side M54.41 ; Other chronic pain G89.29 and BMI 40.0-44.9, adult Z68.41 [facility] [address] [address] Aug, Degenerative disc disease at L5-S1 level M51.36 [facility] [address] [address] Aug, Tooth abscess K04.7 [facility] [address] [address] Jul, Degenerative disc disease at L5-S1 level M51.36 [facility] [id number] [place] [address] 33566- 1805 Jun, [facility] [address] [address]- 1970 Jun, Degenerative disc disease at L5-S1 level M51.36 [facility] [id number] [place] [address] 76202- 6148 Jun, Degenerative disc disease at L5-S1 level M51.36 [facility] [id number] [place] [address] 21245- 2484 May, Degenerative disc disease at L5-S1 level M51.36 [facility] [id number] [place] [address] 55509- 6838 Apr, Degenerative disc disease at L5-S1 level M51.36 ; Arthritis M19.90 and Intention tremor G25.2 [facility] [id number] [place] [address] 04844- 8290 Apr, Degenerative disc disease at L5-S1 level M51.36 [facility] [address] [address] Mar, [facility] [id number] [address] 0[address] Mar, [facility] [address] [place] [address] 50566- 1998 Mar, Degenerative disc disease at L5-S1 level M51.36 [facility] [id number] [place] [address] 19771- 4365 Feb, [facility] [id number] [place] [address] 74704- 3249 Feb, Degenerative disc disease at L5-S1 level M51.36 [facility] [id number] [place] [address] 00902- 4914 Feb, [facility] [id number] [place] [address] 37015- 4822 Jan, [facility] [address] [place] [address] 31768- 6727 Jan, Hyperlipidemia, unspecified hyperlipidemia type E78.5 ; Degenerative disc disease at L5-S1 level M51.36 ; Right hip pain M25.551 ; Piriformis syndrome, right G57.01 and Pre-diabetes R73.03 [facility] [address] [address] Jan, Degenerative disc disease at L5-S1 level M51.36 [facility] [address] [address]- 79[address] Jan, [facility] [id number] [place] [address] 67516- 2387 Dec, Degenerative disc disease at L5-S1 level M51.36 ; Right hip pain M25.551 and Piriformis syndrome, right G57.01 [facility] [address] [place] [address] 59559- 5775 Dec, [facility] [id number] [place] [address] 44671- 9251 Dec, [facility] [address] 07[address]- 1277 Dec, Degenerative disc disease at L5-S1 level M51.36 [place] [address] [address]- [address] November, [facility] [address] 8[address]- 8667 November, Right hip pain M25.551 and Hyperlipidemia, unspecified hyperlipidemia type E78.5 [place] [address] 9[address]- 26[address] Aug, Acute right-sided low back pain without sciatica M54.5 and Oral lesion K13.70 [place] [address] [address]- 6533 Jul, Left carpal tunnel syndrome G56.02 [facility] [place] [id number] [place] [address] 84466- 3164 Jun, [facility] [address] [address]- 28[address] May, Abscess L02.91 and Cough R05 [facility] [id number] [place] [address] 26190- 6888 May, [facility] [address] [address]- [address] May, [facility] [id number] [place] [address] 88050- 8554 May, [facility] [place] [id number] [place] [address] 34801- 4674 May, Carpal tunnel syndrome of left wrist G56.02 [facility] [address] [address] Apr, [facility] [address] [id number] [place] [address] Apr, Acute non-recurrent maxillary sinusitis J01.00 [facility] [address] [id number] [place] [address]- [address] 14 Oct, 2014 [facility] [address] [id number] [place] [address]- 2596 Oct, [facility] [address] [place] [id number] Sep, [facility] [address] [id number] [place] [address]- 3246 Sep, [facility] [address] [id number] Sep, [facility] [address] [id number] [address]- 4766 Sep, [facility] [address] [id number] [place] [address]- 2651 May, [facility] [address] [id number] [place] [address]- 3741 May, [facility] [address] [id number] [place] [address]- 4966 Apr, [facility] [address] [id number] [place] [address]- 2[address] Apr, [facility] [address] [id number] [place] [address]- 5006 Feb, [facility] [address] [id number] [place] [address]- 9046 Feb, [facility] [address] [place] [id number] Dec, [facility] [address] [id number] [place] [address]- 2546 Dec, [facility] [address] [place] [id number] November, [facility] [address] [id number] [place] [address]- 6[address] November, IMMUNIZATIONS No Known Immunizations SOCIAL HISTORY Never Assessed REASON FOR VISIT Med Mgmt- states his sciatic nerve has tyler acting daren- Rhoda Murphy RN PLAN OF CARE Activity Details Follow Up 3 Months Reason: VITAL SIGNS Height 68 in 2017-05-10 Weight 248 lbs 2017-05-10 Temperature 97.0 degrees Fahrenheit 2017-05-10 Heart Rate 70 bpm 2017-05-10 Respiratory Rate 18 2017-05-10 BMI 37.70 kg/m2 2017-05-10 Blood pressure systolic 132 mmHg 2017-05-10 Blood pressure diastolic 72 mmHg 2017-05-10 MEDICATIONS Medication Instructions Dosage Frequency Start Date End Date Duration Status Ibuprofen 800 MG Orally Three times a day 1 tablet with food or milk 8h 20 Dec, 2016 Active Hydrocodone-Acetaminophen 5-325 MG Orally 2 times a day 1 tablet as needed 12h 17 Apr, 2017 Active Amitriptyline HCl 100 mg Orally Once a day 1 tablet 24h 28 Mar, 2017 30 day(s) Active Lyrica 150 MG Orally Twice a day 1 capsule 12h Active Lopid 600 MG Orally Twice a day 1 tablet 12h Active RESULTS No Results PROCEDURES No Known procedures INSTRUCTIONS MEDICATIONS ADMINISTERED No Known Medications MEDICAL (GENERAL) HISTORY Type Description Date Medical History borderline diabetes Medical History hyperlipidema
--- OUTSIDE RECORDS SUMMARY | 2018-01-05 21:00 | XMS REPORT ---
Author Author PO JOHNSTON Organization [employer] Address Unknown Phone Unavailable Care Team Providers Care Enamel Finisher Name Role Phone PO JOHNSTON CP Unavailable Allergies, Adverse Reactions, Alerts Substance Reaction Event Type N.K.D.A. Info Not Available Non Drug Allergy Problems Problem Type Condition Code Onset Dates Condition Status Problem Unspecified otitis media 382.9 Active Problem Impacted cerumen 380.4 Active Problem Cellulitis and abscess of leg, except foot 682.6 Active Assessment Acute non-recurrent maxillary sinusitis J01.00 Active Medications Medication Code System Code Instructions Start Date End Date Status Dosage Augmentin [facility] [address]-73 875-125 MG Orally every 12 hrs Apr 28, 2016 May 08, 2016 1 tablet Procedures Procedure Coding System Code Date Office Visit, Est Pt., Level 3 CPT-4 92831 Apr 28, 2016 Vital Signs Date/Time: Apr 28, 2016 Cardiac Monitoring Heart Rate 90 bpm Weight 278 lbs Height 68 in BMI 42.27 Index Blood Pressure Diastolic 94 mmHg Blood Pressure Systolic 130 mmHg Results No Known Results Summary Purpose [employer] Submission
--- OUTSIDE RECORDS SUMMARY | 2018-01-05 21:00 | XMS REPORT ---
Author Author OMAR Cummings Organization [facility] Address [address] [place] [address] Care Team Providers Care Business Transformation Manager Name Role Phone Emiliano OMAR Unavailable PROBLEMS Type Condition ICD9-CM Code YGA49-HH Code Onset Dates Condition Status SNOMED Code Problem Left carpal tunnel syndrome G56.02 Active 308475947177006 Problem Carpal tunnel syndrome of left wrist G56.02 Active 42303520 Problem Other chronic pain G89.29 Active 64840104 Problem Lumbago with sciatica, right side M54.41 Active 138074423 Problem Hyperlipidemia, unspecified hyperlipidemia type E78.5 Active 91450705 Problem Degenerative disc disease at L5-S1 level M51.36 Active 53162669 Problem Arthritis M19.90 Active 1142638 Problem Intention tremor G25.2 Active 08461933 ALLERGIES No Information ENCOUNTERS Encounter Location Date Diagnosis [place] [id number] [place] [address]- [address] Oct, Lumbago with sciatica, right side M54.41 ; Degenerative disc disease at L5-S1 level M51.36 and BMI 40.0-44.9, adult Z68.41 [facility] [id number] [place] [address] 18713- 6780 Sep, Other chronic pain G89.29 [facility] [id number] [place] [address] 65074- 0282 Sep, Degenerative disc disease at L5-S1 level M51.36 [facility] [address] [place] [id number] Aug, Lumbago with sciatica, right side M54.41 ; Other chronic pain G89.29 and BMI 40.0-44.9, adult Z68.41 [facility] [id number] [address] Aug, Degenerative disc disease at L5-S1 level M51.36 [facility] [id number] [place] [address] 11701- 4396 Aug, Tooth abscess K04.7 [facility] [id number] [place] [address] 29218- 8780 Jul, Degenerative disc disease at L5-S1 level M51.36 [facility] [id number] [place] [address] 73600- 7636 Jun, [facility] [id number] [place] [address] 43050- 7307 Jun, Degenerative disc disease at L5-S1 level M51.36 [facility] [id number] [place] [address] 79439- 9172 Jun, Degenerative disc disease at L5-S1 level M51.36 [facility] [id number] [place] [address] 47592- 0618 May, Degenerative disc disease at L5-S1 level M51.36 [facility] [id number] [place] [address] 30713- 3129 Apr, Degenerative disc disease at L5-S1 level M51.36 ; Arthritis M19.90 and Intention tremor G25.2 [facility] [id number] [place] [address] 27341- 3801 Apr, Degenerative disc disease at L5-S1 level M51.36 [facility] [address], [place] [address]- 8042 Mar, [facility] [id number] [place] [address] 90513- 6525 Mar, [facility] [address], [place] [address]- 5056 Mar, Degenerative disc disease at L5-S1 level M51.36 [facility] [address], [place] [address]- 8746 Feb, [facility] [id number] [place] [address] 22189- 7428 Feb, Degenerative disc disease at L5-S1 level M51.36 [facility] [address], [place] [address]- 1098 Feb, [facility] [id number] [place] [address] 14849- 7101 Jan, [facility] [address] [place] [address] 10231- 0406 Jan, Hyperlipidemia, unspecified hyperlipidemia type E78.5 ; Degenerative disc disease at L5-S1 level M51.36 ; Right hip pain M25.551 ; Piriformis syndrome, right G57.01 and Pre-diabetes R73.03 [facility] [id number] [place] [address] 07855- 7179 Jan, Degenerative disc disease at L5-S1 level M51.36 [facility] [address], [place] [address]- 5784 Jan, [facility] [id number] [place] [address] 54398- 7636 Dec, Degenerative disc disease at L5-S1 level M51.36 ; Right hip pain M25.551 and Piriformis syndrome, right G57.01 [facility] [address], [place] [address]- 5356 Dec, [facility] [address], [place] [address]- 2623 Dec, [facility] [id number] [place] [address]- 1230 Dec, Degenerative disc disease at L5-S1 level M51.36 [facility] [address], [place] [address]- 3631 November, [facility] [id number] [place] [address] 91971- 3592 November, Right hip pain M25.551 and Hyperlipidemia, unspecified hyperlipidemia type E78.5 [facility] [id number] [place] [address] 06197- 2878 Aug, Acute right-sided low back pain without sciatica M54.5 and Oral lesion K13.70 [place] [address] 40987- 2985 Jul, Left carpal tunnel syndrome G56.02 [facility] [id number] [place] [address] 21971- 9998 Jun, [place] [address] 27318- 0191 May, Abscess L02.91 and Cough R05 [place] [address] 44768- 9313 May, [facility] [id number] [place] [address] 52806- 5681 May, [facility] [address] 66726- 8626 May, [facility] [id number] [place] [address] 41135- 1578 May, Carpal tunnel syndrome of left wrist G56.02 [place] [id number] [place] [address] 08091- 6311 Apr, [facility] [id number] [place] [address] 86482- 4212 Apr, Acute non-recurrent maxillary sinusitis J01.00 [facility] [id number] [place] [address] 59435- 7419 14 Oct, 2014 [facility] [id number] [place] [address] 75762- 5268 13 Oct, 2014 [facility] [address] [id number] Sep, [facility] [address] [facility] [id number], [place] [address]- 2546 Sep, [facility] [address] [place] [id number] Sep, [facility] [address] [facility] [id number] [address]- 2546 Sep, [facility] [address] [facility] [id number], [place] [address]- 2546 May, [facility] [address] [facility] [id number], [place] [address]- 2341 May, [facility] [address] [facility] [id number], [place] [address]- 2546 Apr, [facility] [address] [facility] [id number], [place] [address]- 2546 Apr, [facility] [address] [facility] [id number], [place] [address]- 2546 Feb, [facility] [address] [facility] [id number], [place] [address]- 2546 Feb, [facility] [address] [place] [id number] Dec, [facility] [address] [facility] [id number], [place] [address]- 2546 Dec, [facility] [address] [place] [id number] November, [facility] [address] [facility] [id number], [place] [address]- 2546 November, IMMUNIZATIONS No Known Immunizations SOCIAL HISTORY Never Assessed REASON FOR VISIT requesting PLAN OF CARE VITAL SIGNS MEDICATIONS No Known Medications RESULTS No Results PROCEDURES No Known procedures INSTRUCTIONS MEDICATIONS ADMINISTERED No Known Medications MEDICAL (GENERAL) HISTORY Type Description Date Medical History borderline diabetes Medical History hyperlipidema
--- OUTSIDE RECORDS SUMMARY | 2018-01-05 21:00 | XMS REPORT ---
Author Author MYCHAL MONDRAGON Organization [employer] Address Unknown Phone Unavailable Care Team Providers Care Sheet Music Salesperson Name Role Phone MYCHAL MONDRAGON CP Unavailable Allergies No Known Allergies Problems Problem Type Condition Code Onset Dates Condition Status Problem Cellulitis and abscess of leg, except foot 682.6 Active Problem Unspecified otitis media 382.9 Active Problem Carpal tunnel syndrome of left wrist G56.02 Active Problem Impacted cerumen 380.4 Active Medications Medication Code System Code Instructions Start Date End Date Status Dosage Nystatin [facility] [address]-02 939204 UNIT/ML Mouth/Throat Four times a day use 7 days past resolution. Jun 02, 2016 4 ml Results No Known Results Summary Purpose [employer] Submission
--- OUTSIDE RECORDS SUMMARY | 2018-01-05 21:00 | XMS REPORT ---
Author Author CALE UGALDE Organization [facility] Address [address] [place] [address] Care Team Providers Care Medical Transcription Editor Name Role Phone CALE UGALDE Unavailable PROBLEMS Type Condition ICD9-CM Code XHO42-KZ Code Onset Dates Condition Status SNOMED Code Problem Left carpal tunnel syndrome G56.02 Active 277592913241322 Problem Carpal tunnel syndrome of left wrist G56.02 Active 19771283 Problem Other chronic pain G89.29 Active 50032479 Problem Lumbago with sciatica, right side M54.41 Active 345756533 Problem Hyperlipidemia, unspecified hyperlipidemia type E78.5 Active 89426622 Problem Degenerative disc disease at L5-S1 level M51.36 Active 93692252 Problem Arthritis M19.90 Active 2079092 Problem Intention tremor G25.2 Active 51422764 ALLERGIES No Information ENCOUNTERS Encounter Location Date Diagnosis [place] [id number] [place] [address] 24393- 5662 Dec, [facility] [id number] [place] [address] 33870- 7364 Dec, [facility] [id number] [place] [address] 08453- 6635 November, [facility] [id number] [place] [address] 49101- 9708 Oct, [facility] [id number] [place] [address] 79957- 5483 Oct, [facility] [id number] [place] [address] 17439- 4024 Oct, [facility] [id number] [place] [address] 42583- 8238 Oct, Lumbago with sciatica, right side M54.41 ; Degenerative disc disease at L5-S1 level M51.36 and BMI 40.0-44.9, adult Z68.41 [facility] [id number] [place] [address] 36568- 9877 Sep, Other chronic pain G89.29 [facility] [id number] [place] [address] 39594- 4009 Sep, Degenerative disc disease at L5-S1 level M51.36 [facility] [address] [place] [id number] Aug, Lumbago with sciatica, right side M54.41 ; Other chronic pain G89.29 and BMI 40.0-44.9, adult Z68.41 [place] [id number] [place] [address] 22196- 4796 Aug, Degenerative disc disease at L5-S1 level M51.36 [place] [address] 04118- 6118 Aug, Tooth abscess K04.7 [facility] [address] 02089- 4452 Jul, Degenerative disc disease at L5-S1 level M51.36 [facility] [id number] [place] [address] 98761- 7085 Jun, [place] [id number] [place] [address] 83922- 6839 Jun, Degenerative disc disease at L5-S1 level M51.36 [facility] [id number] [place] [address] 24441- 1990 Jun, Degenerative disc disease at L5-S1 level M51.36 [facility] [id number] [place] [address] 18695- 9626 May, Degenerative disc disease at L5-S1 level M51.36 [facility] [id number] [place] [address] 28393- 8195 Apr, Degenerative disc disease at L5-S1 level M51.36 ; Arthritis M19.90 and Intention tremor G25.2 [facility] [id number] [place] [address] 92555- 6290 Apr, Degenerative disc disease at L5-S1 level M51.36 [facility] [id number] [place] [address] 04025- 2042 Mar, [facility] [id number] [place] [address] 44079- 0180 Mar, [facility] [id number] [place] [address] 87015- 7181 Mar, Degenerative disc disease at L5-S1 level M51.36 [facility] [id number] [place] [address] 24159- 3199 Feb, [facility] [id number] [place] [address] 88879- 2752 Feb, Degenerative disc disease at L5-S1 level M51.36 [facility] [id number] [place] [address] 81347- 6308 Feb, [facility] [id number] [place] [address] 18367- 8825 Jan, [facility] [id number] [place] [address] 25117- 2958 Jan, Hyperlipidemia, unspecified hyperlipidemia type E78.5 ; Degenerative disc disease at L5-S1 level M51.36 ; Right hip pain M25.551 ; Piriformis syndrome, right G57.01 and Pre-diabetes R73.03 [facility] [id number] [place] [address] 72289- 2476 Jan, Degenerative disc disease at L5-S1 level M51.36 [facility] [id number] [address] 5201 Jan, [facility] [id number] [place] [address] 96168- 7711 Dec, Degenerative disc disease at L5-S1 level M51.36 ; Right hip pain M25.551 and Piriformis syndrome, right G57.01 [place] [id number] [place] [address] 37021- 4258 Dec, [place] [id number] [place] [address] 27362- 9766 Dec, [facility] [address] 47076- 3941 Dec, Degenerative disc disease at L5-S1 level M51.36 [place] [address] 60102- 5808 November, [place] [address] 65860- 7738 November, Right hip pain M25.551 and Hyperlipidemia, unspecified hyperlipidemia type E78.5 [place] [address] 91502- 1690 Aug, Acute right-sided low back pain without sciatica M54.5 and Oral lesion K13.70 [place] [id number] [place] [address] 80359- 5497 Jul, Left carpal tunnel syndrome G56.02 [place] [id number] [place] [address] 46658- 0422 Jun, [place] [address] 17498- 5494 May, Abscess L02.91 and Cough R05 [place] [id number] [place] [address] 43135- 5256 May, [place] [address] 50096- 0542 May, [place] [id number] [place] [address] 77878- 6963 May, [place] [id number] [address] 6739 May, Carpal tunnel syndrome of left wrist G56.02 [facility] [address] [id number] [place] [address] 8356 Apr, [facility] [address] [id number] [place] [address]- 6027 07 Apr, 2016 Acute non-recurrent maxillary sinusitis J01.00 [facility] [address] [id number] [place] [address]- 2687 14 Oct, 2014 [facility] [address] [id number] [place] [address]- 5702 Oct, [facility] [address] [place] [id number] Sep, [facility] [address] [facility] [id number] [place] [address]- 6242 Sep, [facility] [address] [place] [id number] Sep, [facility] [address] [id number] [place] [address]- 0701 Sep, [facility] [address] [id number] [place] [address]- 8666 May, [facility] [address] [id number] [place] [address]- 9984 May, [facility] [address] [id number] [place] [address]- 5254 Apr, [facility] [address] [id number] [place] [address]- 6777 Apr, [facility] [address] [id number] [place] [address]- 1666 Feb, [facility] [address] [id number] [place] [address]- 2546 Feb, [facility] [address] [place] [id number] Dec, [facility] [address] [facility] [id number] [place] [address]- 9096 Dec, [facility] [address] [place] [id number] November, [facility] [address] [facility] [id number] [place] [address]- 7837 November, IMMUNIZATIONS No Known Immunizations SOCIAL HISTORY Never Assessed REASON FOR VISIT med refills PLAN OF CARE VITAL SIGNS MEDICATIONS Medication Instructions Dosage Frequency Start Date End Date Duration Status Ibuprofen 800 MG Orally Three times a day 1 tablet with food or milk 8h Dec, Active RESULTS No Results PROCEDURES No Known procedures INSTRUCTIONS MEDICATIONS ADMINISTERED No Known Medications MEDICAL (GENERAL) HISTORY Type Description Date Medical History borderline diabetes Medical History hyperlipidema
--- OUTSIDE RECORDS SUMMARY | 2018-01-05 21:00 | XMS REPORT ---
Author Author CALE UGALDE Organization [facility] Address [address] [place] [address] Care Team Providers Care Automotive Engineer Name Role Phone CALE UGALDE Unavailable PROBLEMS Type Condition ICD9-CM Code PDO27-PC Code Onset Dates Condition Status SNOMED Code Problem Left carpal tunnel syndrome G56.02 Active 898988212548411 Problem Carpal tunnel syndrome of left wrist G56.02 Active 56768025 Problem Other chronic pain G89.29 Active 21900138 Problem Lumbago with sciatica, right side M54.41 Active 005127985 Problem Hyperlipidemia, unspecified hyperlipidemia type E78.5 Active 59208230 Problem Degenerative disc disease at L5-S1 level M51.36 Active 40326009 Problem Arthritis M19.90 Active 0590692 Problem Intention tremor G25.2 Active 09049070 ALLERGIES No Information ENCOUNTERS Encounter Location Date Diagnosis [place] [id number] [place] [address] 95336- 0916 Oct, [facility] [id number] [place] [address] 06323- 2824 Sep, Other chronic pain G89.29 [facility] [id number] [place] [address] 65708- 1912 Sep, Degenerative disc disease at L5-S1 level M51.36 [facility] [address] [place] [id number] Aug, Lumbago with sciatica, right side M54.41 ; Other chronic pain G89.29 and BMI 40.0-44.9, adult Z68.41 [facility] [id number] [place] [address] 16634- 3618 Aug, Degenerative disc disease at L5-S1 level M51.36 [facility] [address] 54239- 9401 Aug, Tooth abscess K04.7 [facility] [id number] [place] [address] 28080- 2567 Jul, Degenerative disc disease at L5-S1 level M51.36 [facility] [id number] [place] [address] 74973- 6756 Jun, [facility] [id number] [place] [address] 79523- 9334 Jun, Degenerative disc disease at L5-S1 level M51.36 [facility] [id number] [place] [address] 25492- 2485 Jun, Degenerative disc disease at L5-S1 level M51.36 [facility] [id number] [place] [address] 24844- 2267 May, Degenerative disc disease at L5-S1 level M51.36 [facility] [id number] [place] [address] 90222- 0580 Apr, Degenerative disc disease at L5-S1 level M51.36 ; Arthritis M19.90 and Intention tremor G25.2 [facility] [id number] [place] [address] 52905- 8620 Apr, Degenerative disc disease at L5-S1 level M51.36 [facility] [id number] [place] [address] 20743- 4036 Mar, [facility] [id number] [place] [address] 56220 2541 Mar, [facility] [id number] [place] [address] 52167- 0381 Mar, Degenerative disc disease at L5-S1 level M51.36 [facility] [address], [place] [address]- 7801 Feb, [facility] [id number] [place] [address] 87372- 6261 Feb, Degenerative disc disease at L5-S1 level M51.36 [facility] [address], [place] [address]- 9701 Feb, [facility] [address], [place] [address]- 4496 Jan, [facility] [address], [place] [address]- 0863 Jan, Hyperlipidemia, unspecified hyperlipidemia type E78.5 ; Degenerative disc disease at L5-S1 level M51.36 ; Right hip pain M25.551 ; Piriformis syndrome, right G57.01 and Pre-diabetes R73.03 [facility] [id number] [place] [address]- 6159 Jan, Degenerative disc disease at L5-S1 level M51.36 [facility] [address], [place] [address]- 5832 Jan, [facility] [id number] [place] [address] 75969- 0907 Dec, Degenerative disc disease at L5-S1 level M51.36 ; Right hip pain M25.551 and Piriformis syndrome, right G57.01 [facility] [address], [place] [address]- 8170 Dec, [facility] [address] [place] [address]- 1441 Dec, [facility] [id number] [place] [address]- 7614 Dec, Degenerative disc disease at L5-S1 level M51.36 [facility] [address], [place] [address]- 0256 November, [facility] [address], [place] [address]- 4398 November, Right hip pain M25.551 and Hyperlipidemia, unspecified hyperlipidemia type E78.5 [facility] [id number] [place] [address] 02701- 2274 Aug, Acute right-sided low back pain without sciatica M54.5 and Oral lesion K13.70 [facility] [id number] [place] [address] 55031- 6688 Jul, Left carpal tunnel syndrome G56.02 [facility] [id number] [place] [address] 83239- 2344 Jun, [facility] [id number] [place] [address] 53143- 8054 May, Abscess L02.91 and Cough R05 [facility] [id number] [place] [address] 76982- 7587 May, [facility] [id number] [place] [address] 64085- 8843 May, [facility] [id number] [place] [address] 09349- 0623 May, [facility] [id number] [place] [address] 41239- 8233 May, Carpal tunnel syndrome of left wrist G56.02 [facility] [id number] [place] [address] 28617- 1029 Apr, [facility] [id number] [place] [address] 80980- 8674 Apr, Acute non-recurrent maxillary sinusitis J01.00 [facility] [id number] [place] [address] 11896- 6590 Oct, [facility] [id number] [place] [address] 75785- 6931 Oct, [facility] [address] [place] [id number] Sep, [facility] [address], [place] [address]- 0609 Sep, [facility] [address] [place] [id number] Sep, [facility] [address] [facility] [id number], [place] [address]- 4416 Sep, [facility] [address] [facility] [id number], [place] [address]- 7116 May, [facility] [address] [facility] [id number], [place] [address]- 2136 May, [facility] [address] [facility] [id number], [place] [address]- 9666 Apr, [facility] [address] [facility] [id number], [place] [address]- 2402 Apr, [facility] [address] [facility] [id number], [place] [address]- 8336 Feb, [facility] [id number] [address]- 4226 Feb, [facility] [address] [place] [id number] Dec, [facility] [address] [facility] [id number], [place] [address]- 2546 Dec, [facility] [address] [place] [id number] November, [facility] [address] [facility] [id number], [place] [address]- 7756 November, IMMUNIZATIONS No Known Immunizations SOCIAL HISTORY Never Assessed REASON FOR VISIT Requests return call PLAN OF CARE VITAL SIGNS MEDICATIONS Unknown Medications RESULTS No Results PROCEDURES No Known procedures INSTRUCTIONS MEDICATIONS ADMINISTERED No Known Medications MEDICAL (GENERAL) HISTORY Type Description Date Medical History borderline diabetes Medical History hyperlipidema
--- OUTSIDE RECORDS SUMMARY | 2018-01-05 21:00 | XMS REPORT ---
Author Author CALE UGALDE Organization [facility] [place] [facility] Address [address] [place] [address] Care Team Providers Care Floor Plan Adjuster Name Role Phone CALE UGALDE Unavailable PROBLEMS Type Condition ICD9-CM Code QMN21-ZS Code Onset Dates Condition Status SNOMED Code Problem Left carpal tunnel syndrome G56.02 Active 384206862821807 Problem Carpal tunnel syndrome of left wrist G56.02 Active 70815501 Problem Other chronic pain G89.29 Active 27010187 Problem Lumbago with sciatica, right side M54.41 Active 044720653 Problem Hyperlipidemia, unspecified hyperlipidemia type E78.5 Active 21552950 Problem Degenerative disc disease at L5-S1 level M51.36 Active 76838476 Problem Arthritis M19.90 Active 6752038 Problem Intention tremor G25.2 Active 10357053 ALLERGIES No Information ENCOUNTERS Encounter Location Date Diagnosis [place] [id number] [place] [address] 85575- 1607 Dec, [facility] [place] [facility] [id number] [place] [address] 28368- 2492 Dec, [facility] [place] [facility] [id number] [place] [address] 06093- 3503 November, [facility] [place] [facility] [id number] [place] [address] 03544- 0611 Oct, [facility] [place] [facility] [id number] [place] [address] 58605- 6700 Oct, [facility] [place] [facility] [id number] [place] [address] 96277- 9002 Oct, [facility] [place] [facility] [id number] [place] [address] 33523- 2037 Oct, Lumbago with sciatica, right side M54.41 ; Degenerative disc disease at L5-S1 level M51.36 and BMI 40.0-44.9, adult Z68.41 [facility] [place] [facility] [id number] [place] [address] 75350- 0756 Sep, Other chronic pain G89.29 [facility] [place] [facility] [id number] [place] [address] 09750- 0746 Sep, Degenerative disc disease at L5-S1 level M51.36 [facility] [address] [id number] Aug, Lumbago with sciatica, right side M54.41 ; Other chronic pain G89.29 and BMI 40.0-44.9, adult Z68.41 [place] [id number] [place] [address] 13821- 3146 Aug, Degenerative disc disease at L5-S1 level M51.36 [place] [address] 03592- 7167 Aug, Tooth abscess K04.7 [facility] [place] [facility] [address] 32066- 3577 Jul, Degenerative disc disease at L5-S1 level M51.36 [facility] [place] [facility] [id number] [place] [address] 12234- 9098 Jun, [place] [id number] [place] [address] 04217- 1228 Jun, Degenerative disc disease at L5-S1 level M51.36 [facility] [place] [facility] [id number] [place] [address] 94481- 5747 Jun, Degenerative disc disease at L5-S1 level M51.36 [facility] [place] [facility] [id number] [place] [address] 70331- 9991 May, Degenerative disc disease at L5-S1 level M51.36 [facility] [place] [facility] [id number] [place] [address] 28755- 0236 Apr, Degenerative disc disease at L5-S1 level M51.36 ; Arthritis M19.90 and Intention tremor G25.2 [facility] [place] [facility] [id number] [place] [address] 39544- 6879 Apr, Degenerative disc disease at L5-S1 level M51.36 [facility] [place] [facility] [id number] [place] [address] 61454- 2512 Mar, [facility] [place] [facility] [id number] [place] [address] 99751- 3993 Mar, [facility] [place] [facility] [id number] [place] [address] 03197- 4553 Mar, Degenerative disc disease at L5-S1 level M51.36 [facility] [place] [facility] [id number] [place] [address] 98157- 3105 Feb, [facility] [place] [facility] [id number] [place] [address] 44757- 2052 Feb, Degenerative disc disease at L5-S1 level M51.36 [facility] [place] [facility] [id number] [place] [address] 74331- 7265 Feb, [facility] [place] [facility] [id number] [place] [address] 80164- 6094 Jan, [facility] [place] [facility] [id number] [place] [address] 95097- 2964 Jan, Hyperlipidemia, unspecified hyperlipidemia type E78.5 ; Degenerative disc disease at L5-S1 level M51.36 ; Right hip pain M25.551 ; Piriformis syndrome, right G57.01 and Pre-diabetes R73.03 [facility] [facility] [id number] [place] [address] 35235- 6731 Jan, Degenerative disc disease at L5-S1 level M51.36 [facility] [facility] [id number] [address] 9278 Jan, [facility] [facility] [id number] [place] [address] 58910- 6133 Dec, Degenerative disc disease at L5-S1 level M51.36 ; Right hip pain M25.551 and Piriformis syndrome, right G57.01 [place] [id number] [place] [address] 68881- 7782 Dec, [place] [id number] [place] [address] 67638- 5118 Dec, [facility] [facility] [address] 19002- 8119 Dec, Degenerative disc disease at L5-S1 level M51.36 [place] [address] 33804- 7667 November, [place] [address] 98391- 1728 November, Right hip pain M25.551 and Hyperlipidemia, unspecified hyperlipidemia type E78.5 [place] [address] 39895- 4639 Aug, Acute right-sided low back pain without sciatica M54.5 and Oral lesion K13.70 [place] [id number] [place] [address] 49501- 9942 Jul, Left carpal tunnel syndrome G56.02 [place] [id number] [place] [address] 41005- 0080 Jun, [place] [address] 79392- 8845 May, Abscess L02.91 and Cough R05 [place] [id number] [place] [address] 63573- 6760 May, [place] [address] 22488- 5362 May, [place] [id number] [place] [address] 79822- 7820 May, [place] [id number] [place] [address] 5763 May, Carpal tunnel syndrome of left wrist G56.02 [facility] [facility] [address] [id number] [place] [address]- 2626 Apr, [facility] [place] [facility] [address] [id number] [place] [address]- 1788 07 Apr, 2016 Acute non-recurrent maxillary sinusitis J01.00 [facility] [facility] [address] [id number] [place] [address]- 7003 14 Oct, 2014 [facility] [place] [facility] [address] [id number] [place] [address]- 8815 Oct, [facility] [address] [place] [id number] Sep, [facility] [facility] [address] [facility] [id number] [place] [address]- 7555 Sep, [facility] [address] [place] [id number] Sep, [facility] [facility] [address] [id number] [place] [address]- 7858 Sep, [facility] [place] [facility] [address] [id number] [place] [address]- 7906 May, [facility] [place] [facility] [address] [id number] [place] [address]- 9672 May, [facility] [place] [facility] [address] [id number] [place] [address]- 7678 Apr, [facility] [place] [facility] [address] [id number] [place] [address]- 2957 Apr, [facility] [address] [id number] [place] [address]- 8696 Feb, [facility] [address] [id number] [place] [address]- 2546 Feb, [facility] [address] [place] [id number] Dec, [facility] [facility] [address] [facility] [id number] [place] [address]- 5041 Dec, [facility] [address] [id number] November, [facility] [place] [address] [facility] [id number] [place] [address]- 9089 November, IMMUNIZATIONS No Known Immunizations SOCIAL HISTORY Never Assessed REASON FOR VISIT Hydrocodone 07/03 PLAN OF CARE VITAL SIGNS MEDICATIONS Medication Instructions Dosage Frequency Start Date End Date Duration Status Hydrocodone-Acetaminophen 5-325 MG Orally 2 times a day 1 tablet as needed 12h 12 Jun, 2017 Active RESULTS No Results PROCEDURES No Known procedures INSTRUCTIONS MEDICATIONS ADMINISTERED No Known Medications MEDICAL (GENERAL) HISTORY Type Description Date Medical History borderline diabetes Medical History hyperlipidema
--- OUTSIDE RECORDS SUMMARY | 2018-01-05 21:00 | XMS REPORT ---
Author Author OMAR Cummings Organization [facility] Address [address] [place] [address] Care Team Providers Care Acid Plant Helper Name Role Phone OMAR Cummings Unavailable PROBLEMS Type Condition ICD9-CM Code FZH50-ZQ Code Onset Dates Condition Status SNOMED Code Problem Left carpal tunnel syndrome G56.02 Active 475025511569584 Problem Carpal tunnel syndrome of left wrist G56.02 Active 98504916 Problem Other chronic pain G89.29 Active 13369994 Problem Lumbago with sciatica, right side M54.41 Active 800524983 Problem Hyperlipidemia, unspecified hyperlipidemia type E78.5 Active 75203086 Problem Degenerative disc disease at L5-S1 level M51.36 Active 40421412 Problem Arthritis M19.90 Active 1595018 Problem Intention tremor G25.2 Active 83999848 ALLERGIES No Known Allergies ENCOUNTERS Encounter Location Date Diagnosis [place] [address] [address]30- [address]17 Oct, [facility] [id number] [place] [address] 99094- 8847 Sep, Other chronic pain G89.29 [facility] [address] 38014- 7509 Sep, Degenerative disc disease at L5-S1 level M51.36 [facility] [address] [id number] Aug, Lumbago with sciatica, right side M54.41 ; Other chronic pain G89.29 and BMI 40.0-44.9, adult Z68.41 [facility] [id number] [place] [address] 48899- 5809 Aug, Degenerative disc disease at L5-S1 level M51.36 [facility] [id number] [place] [address] 23751- 3120 Aug, Tooth abscess K04.7 [facility] [id number] [place] [address] 66803- 2582 Jul, Degenerative disc disease at L5-S1 level M51.36 [facility] [id number] [place] [address] 24780- 7277 Jun, [facility] [id number] [place] [address] 92708- 0168 Jun, Degenerative disc disease at L5-S1 level M51.36 [facility] [id number] [place] [address] 743449- 4892 Jun, Degenerative disc disease at L5-S1 level M51.36 [place] [id number] [place] [address] 14009- 1894 May, Degenerative disc disease at L5-S1 level M51.36 [facility] [id number] [place] [address] 87936- 8105 Apr, Degenerative disc disease at L5-S1 level M51.36 ; Arthritis M19.90 and Intention tremor G25.2 [facility] [id number] [place] [address] 99629- 0706 Apr, Degenerative disc disease at L5-S1 level M51.36 [facility] [id number] [place] [address] 80223- 1676 Mar, [facility] [id number] [place] [address] 50463- 7370 Mar, [facility] [id number] [place] [address] 50925- 9794 18 Mar, 2017 Degenerative disc disease at L5-S1 level M51.36 [facility] [id number] [place] [address] 24793- 2178 Feb, [facility] [id number] [place] [address] 87460- 7711 Feb, Degenerative disc disease at L5-S1 level M51.36 [facility] [address], [place] [address]- 1716 Feb, [facility] [address] [place] [address]- 2644 Jan, [facility] [id number] [place] [address] 12759- 4203 Jan, Hyperlipidemia, unspecified hyperlipidemia type E78.5 ; Degenerative disc disease at L5-S1 level M51.36 ; Right hip pain M25.551 ; Piriformis syndrome, right G57.01 and Pre-diabetes R73.03 [facility] [address], [place] [address]- 9030 Jan, Degenerative disc disease at L5-S1 level M51.36 [facility] [id number] [place] [address] 33117- 0946 Jan, [facility] [id number] [place] [address] 08326- 3808 Dec, Degenerative disc disease at L5-S1 level M51.36 ; Right hip pain M25.551 and Piriformis syndrome, right G57.01 [facility] [address], [place] [address]- 6934 Dec, [facility] [address] [place] [address]- 7616 Dec, [facility] [address], [place] [address]- 4303 Dec, Degenerative disc disease at L5-S1 level M51.36 [facility] [address], [place] [address]- 8160 November, [facility] [address] [place] [address]- 2013 November, Right hip pain M25.551 and Hyperlipidemia, unspecified hyperlipidemia type E78.5 [facility] [id number] [place] [address] 61590- 7182 Aug, Acute right-sided low back pain without sciatica M54.5 and Oral lesion K13.70 [facility] [id number] [place] [address] 50896- 7271 Jul, Left carpal tunnel syndrome G56.02 [facility] [address] 54072- 8888 Jun, [facility] [id number] [place] [address] 35985- 7734 May, Abscess L02.91 and Cough R05 [facility] [id number] [place] [address] 60083- 9227 May, [facility] [id number] [place] [address] 77052- 2859 May, [facility] [id number] [place] [address] 60088- 8847 May, [facility] [id number] [place] [address] 02873- 6631 May, Carpal tunnel syndrome of left wrist G56.02 [facility] [id number] [place] [address] 29622- 3136 Apr, [facility] [id number] [place] [address] 22254- 2252 Apr, Acute non-recurrent maxillary sinusitis J01.00 [facility] [id number] [place] [address] 18575- 3489 Oct, [facility] [id number] [place] [address] 18003- 5142 Oct, [facility] [address] [place] [id number] Sep, [facility] [id number] [place] [address] 01978- 4944 Sep, [facility] [address] [facility] [place] [id number] Sep, [facility] [address] [facility] [id number], [place] [address] 2546 Sep, [facility] [address] [facility] [id number], [place] [address] 2546 May, [facility] [address] [facility] [id number], [place] [address]- 2166 May, [facility] [address] [facility] [id number], [place] [address]- 2546 Apr, [facility] [address] [facility] [id number], [place] [address] 2546 Apr, [facility] [address] [facility] [id number], [place] [address]- 2546 Feb, [facility] [id number] [address] 2546 Feb, [place] [address] [id number] Dec, [facility] [id number] [address]- 2546 Dec, [place] [address] [id number] November, [facility] [address] [facility] [id number], [place] [address]- 2546 November, IMMUNIZATIONS No Known Immunizations SOCIAL HISTORY Never Assessed REASON FOR VISIT Pain (acute)-right hip - Saw Dr. Traore about a week ago. He gave him some new meds that he states are not helping at all. He wants something done for his right hip. - Trinh MARTINEZ, Wants to restart Hydrocodone. PLAN OF CARE Activity Details Follow Up 2 Weeks Reason:right hip pain VITAL SIGNS Height 68 in 2017-01-18 Weight 246.2 lbs 2017-01-18 Temperature 98.1 degrees Fahrenheit 2017-01-18 Heart Rate 80 bpm 2017-01-18 Respiratory Rate 18 2017-01-18 BMI 37.43 kg/m2 2017-01-18 Blood pressure systolic 130 mmHg 2017-01-18 Blood pressure diastolic 88 mmHg 2017-01-18 MEDICATIONS Medication Instructions Dosage Frequency Start Date End Date Duration Status Hydrocodone-Acetaminophen 5-325 MG Orally 2 times a day 1 tablet as needed 12h Dec, Active Lopid 600 MG Orally Twice a day 1 tablet 12h 30 days Active Ibuprofen 800 MG Orally Three times a day 1 tablet with food or milk 8h Dec, Feb, Active Lyrica 150 MG Orally Twice a day 1 capsule 12h Active RESULTS Name Result Date Reference Range Xray : Hip, Right 2 views (IN HOUSE) 2017-01-18 PROCEDURES Procedure Date Ordered Result Body Site X-RAY EXAM HIP UNI 2-3 VIEWS January 18, 2017 INSTRUCTIONS MEDICATIONS ADMINISTERED No Known Medications MEDICAL (GENERAL) HISTORY Type Description Date Medical History borderline diabetes Medical History hyperlipidema
--- OUTSIDE RECORDS SUMMARY | 2018-01-05 21:01 | XMS REPORT ---
Author Author OMAR Cummings Organization [facility] Address [address] [place] [address] Care Team Providers Care Hedis Specialist Name Role Phone Emiliano OMAR Unavailable PROBLEMS Type Condition ICD9-CM Code GUX76-MI Code Onset Dates Condition Status SNOMED Code Problem Left carpal tunnel syndrome G56.02 Active 477198691344688 Problem Carpal tunnel syndrome of left wrist G56.02 Active 90277862 Problem Other chronic pain G89.29 Active 29652419 Problem Lumbago with sciatica, right side M54.41 Active 640570406 Problem Hyperlipidemia, unspecified hyperlipidemia type E78.5 Active 50598853 Problem Degenerative disc disease at L5-S1 level M51.36 Active 77177735 Problem Arthritis M19.90 Active 5707883 Problem Intention tremor G25.2 Active 91658462 ALLERGIES No Known Allergies ENCOUNTERS Encounter Location Date Diagnosis [place] [address] [place] [address]262- 8608 Oct, Lumbago with sciatica, right side M54.41 ; Degenerative disc disease at L5-S1 level M51.36 and BMI 40.0-44.9, adult Z68.41 [place] [address] [place] [address] 95520- 3910 Sep, Other chronic pain G89.29 [facility] [address] [place] [address] [id number] [place] [address] 82554- 6680 Sep, Degenerative disc disease at L5-S1 level M51.36 [facility] [address] [place] [id number] Aug, Lumbago with sciatica, right side M54.41 ; Other chronic pain G89.29 and BMI 40.0-44.9, adult Z68.41 [place] [address] [address] Aug, Degenerative disc disease at L5-S1 level M51.36 [facility] [address] [id number] [place] [address] 52900- 6886 Aug, Tooth abscess K04.7 [facility] [address] [place] [address] 75510- 3180 Jul, Degenerative disc disease at L5-S1 level M51.36 [facility] [id number] [address] 00[address] Jun, [facility] [address] [address] [id number] [place] [address] 673586- 1334 Jun, Degenerative disc disease at L5-S1 level M51.36 [facility] [address] [address] [id number] [place] [address] 11794- 1414 Jun, Degenerative disc disease at L5-S1 level M51.36 [facility] [address] [place] [address] 20219- 4277 May, Degenerative disc disease at L5-S1 level M51.36 [facility] [address] [address] [id number] [place] [address] 71865- 8277 Apr, Degenerative disc disease at L5-S1 level M51.36 ; Arthritis M19.90 and Intention tremor G25.2 [facility] [address] [place] [address] 10829- 1769 Apr, Degenerative disc disease at L5-S1 level M51.36 [facility] [address] [address] 130[address] Mar, [facility] [address] [address] [id number] [address] 5566 Mar, [facility] [address] [address] 0726 18 Mar, 2017 Degenerative disc disease at L5-S1 level M51.36 [facility] [id number], [place] [address] 77[address] Feb, [facility] [id number] [place] [address] 30271- 1846 Feb, Degenerative disc disease at L5-S1 level M51.36 [facility] [id number] [place] [address] 06818- 8898 Feb, [facility] [id number] [place] [address] 37268- 4827 Jan, [facility] [id number] [place] [address] 75489- 2094 Jan, Hyperlipidemia, unspecified hyperlipidemia type E78.5 ; Degenerative disc disease at L5-S1 level M51.36 ; Right hip pain M25.551 ; Piriformis syndrome, right G57.01 and Pre-diabetes R73.03 [facility] [address] [address] [id number] [place] [address] 05649- 5863 Jan, Degenerative disc disease at L5-S1 level M51.36 [facility] [id number] [place] [address] 66072- 9370 Jan, [facility] [address] [address] [id number] [place] [address] 25502- 0838 Dec, Degenerative disc disease at L5-S1 level M51.36 ; Right hip pain M25.551 and Piriformis syndrome, right G57.01 [facility] [address] [place] [id number] [address] 68[address] Dec, [facility] [address], [place] [address] 0[address] Dec, [facility] [address] [address] [id number] [place] [address] 63616- 1617 Dec, Degenerative disc disease at L5-S1 level M51.36 [facility] [address] [address] November, [facility] [address] [place] [address] [id number] [place] [address] 42742- 1325 November, Right hip pain M25.551 and Hyperlipidemia, unspecified hyperlipidemia type E78.5 [facility] [address] 25519- 8432 Aug, Acute right-sided low back pain without sciatica M54.5 and Oral lesion K13.70 [place] [address] 72176- 3097 Jul, Left carpal tunnel syndrome G56.02 [facility] [address] 24826- 7010 Jun, [place] [address] 59049- 7710 May, Abscess L02.91 and Cough R05 [place] [address] 77583- 4532 May, [facility] [address] [place] [address] [id number] [place] [address] 12668- 6129 May, [place] [address] 89990- 6748 May, [facility] [address] [place] [id number] [place] [address] 55830- 9145 May, Carpal tunnel syndrome of left wrist G56.02 [place] [address] [place] [id number] [place] [address] 11315- 0915 Apr, [facility] [address] [address] [id number] [place] [address] 31299- 9260 Apr, Acute non-recurrent maxillary sinusitis J01.00 [facility] [address] [address] [id number] [place] [address] 16195- 2130 14 Oct, 2014 [facility] [id number] [place] [address] 92953- 1677 13 Oct, 2014 [facility] [address] [place] [id number] Sep, [facility] [address] [facility] [id number] [address] Sep, [facility] [address] [place] [id number] Sep, [facility] [address] [facility] [id number] [address] 25[address] Sep, [facility] [address] [facility] [id number] [address] 2546 May, [facility] [address] [facility] [id number] [address] 2546 May, [facility] [address] [facility] [id number] [address]- 2546 Apr, [facility] [address] [place] [id number] [address]- 2546 Apr, [facility] [address] [place] [id number] [address]- 2546 Feb, [facility] [address] [facility] [id number] [address]- 2546 Feb, [facility] [address] [facility] [place] [id number] Dec, [facility] [address] [facility] [id number] [address]- 25[address] Dec, [place] [address] [facility] [id number] November, [facility] [address] [facility] [id number] [address] 25[address] November, IMMUNIZATIONS No Known Immunizations SOCIAL HISTORY Never Assessed REASON FOR VISIT Difficulty sleeping - Pt states he was having dizzy spells all day yesterday and it was to the point he could not even drive. He states that when he went to long-term he was diagnosed as a borderline diabetic and he wonders if it has kicked in full blown. - Trinh MARTINEZ, Wants to restart Amitriptyline. PLAN OF CARE Activity Details Follow Up 3 Months Reason:hip pain VITAL SIGNS Height 68 in 2017-02-15 Weight 239.1 lbs 2017-02-15 Temperature 98.9 degrees Fahrenheit 2017-02-15 Heart Rate 76 bpm 2017-02-15 Respiratory Rate 18 2017-02-15 BMI 36.35 kg/m2 2017-02-15 Blood pressure systolic 132 mmHg 2017-02-15 Blood pressure diastolic 84 mmHg 2017-02-15 MEDICATIONS Medication Instructions Dosage Frequency Start Date End Date Duration Status Lyrica 150 MG Orally Twice a day 1 capsule 12h Active Lopid 600 MG Orally Twice a day 1 tablet 12h Active Ibuprofen 800 MG Orally Three times a day 1 tablet with food or milk 8h 20 Dec, 2016 Active Hydrocodone-Acetaminophen 5-325 MG Orally 2 times a day 1 tablet as needed 12h Jan, Active RESULTS Name Result Date Reference Range A1C (IN HOUSE) 2017-02-15 A1C IN HOUSE 0726 4.3 - 5.6 % Previous A1c n/a Lot 0726 Exp date 10/2018 TSH 2017-02-15 TSH 1.470 0.450-4.500 CBC 2017-02-15 WBC 10.2 3.4-10.8 RBC 5.61 4.14-5.80 Hemoglobin 14.6 12.6-17.7 Hematocrit 45.9 37.5-51.0 MCV 82 79-97 MCH 26.0 26.6-33.0 MCHC 31.8 31.5-35.7 RDW 15.3 12.3-15.4 Platelets 383 150-379 Neutrophils 59 Lymphs 31 Monocytes 7 Eos 3 Basos 0 Neutrophils (Absolute) 5.9 1.4-7.0 Lymphs (Absolute) 3.2 0.7-3.1 Monocytes(Absolute) 0.7 0.1-0.9 Eos (Absolute) 0.3 0.0-0.4 Baso (Absolute) 0.0 0.0-0.2 Immature Granulocytes 0 Immature Grans (Abs) 0.0 0.0-0.1 LIPID PANEL 2017-02-15 Cholesterol, Total 134 100-199 Triglycerides 114 0-149 HDL Cholesterol 31 >39 VLDL Cholesterol Pedrito 23 5-40 LDL Cholesterol Calc 80 0-99 CMP 2017-02-15 Glucose, Serum 101 65-99 BUN 9 6-24 Creatinine, Serum 0.89 0.76-1.27 eGFR If NonAfricn Am 103 >59 eGFR If Africn Am 119 >59 BUN/Creatinine Ratio 10 9-20 Sodium, Serum 144 134-144 Potassium, Serum 4.1 3.5-5.2 Chloride, Serum 107 96-106 Carbon Dioxide, Total 20 18-29 Calcium, Serum 9.4 8.7-10.2 Protein, Total, Serum 6.9 6.0-8.5 Albumin, Serum 3.9 3.5-5.5 Globulin, Total 3.0 1.5-4.5 A/G Ratio 1.3 1.2-2.2 Bilirubin, Total 0.3 0.0-1.2 Alkaline Phosphatase, S 130 39-117 AST (SGOT) 12 0-40 ALT (SGPT) 17 0-44 PROCEDURES Procedure Date Ordered Result Body Site ASSAY THYROID STIM HORMONE February 15, 2017 COMPLETE CBC W/AUTO DIFF WBC February 15, 2017 VENIPUNCT, ROUTINE* February 15, 2017 COMPREHEN METABOLIC PANEL February 15, 2017 LIPID PANEL February 15, 2017 GLYCATED HEMOGLOBIN TEST February 15, 2017 INSTRUCTIONS MEDICATIONS ADMINISTERED No Known Medications MEDICAL (GENERAL) HISTORY Type Description Date Medical History borderline diabetes Medical History hyperlipidema
--- OUTSIDE RECORDS SUMMARY | 2018-01-05 21:01 | XMS REPORT ---
Author MYCHAL Shane [facility] eClinicalWorks Address Unknown Phone Unavailable Care Team Providers Care Clay Shop Supervisor Name Role Phone MYCHAL MONDRAGON CP Unavailable Allergies, Adverse Reactions, Alerts Substance Reaction Event Type N.K.D.A. Info Not Available Non Drug Allergy Problems Problem Type Condition Code Onset Dates Condition Status Problem Cellulitis and abscess of leg, except foot 682.6 Active Problem Unspecified otitis media 382.9 Active Problem Carpal tunnel syndrome of left wrist G56.02 Active Problem Impacted cerumen 380.4 Active Assessment Carpal tunnel syndrome of left wrist G56.02 Active Medications Medication Code System Code Instructions Start Date End Date Status Dosage PredniSONE [facility] [address]-41 20 mg Orally Once a day May 26, 2016 May 31, 2016 2 tablets Procedures Procedure Coding System Code Date Office Visit, Est Pt., Level 3 CPT-4 51267 May 26, 2016 Vital Signs Date/Time: May 26, 2016 Cardiac Monitoring Heart Rate 84 bpm Weight 270.5 lbs Height 68 in BMI 41.12 Index Blood Pressure Diastolic 82 mmHg Blood Pressure Systolic 138 mmHg Results No Known Results Summary Purpose eClinicalWorks Submission
--- OUTSIDE RECORDS SUMMARY | 2018-01-05 21:01 | XMS REPORT ---
Author Author OMAR Cummings Organization [facility] Address [address] [place] [address] Care Team Providers Care Workers Compensation Attorney Name Role Phone OMAR Cummings Unavailable PROBLEMS Type Condition ICD9-CM Code CRB60-EC Code Onset Dates Condition Status SNOMED Code Problem Left carpal tunnel syndrome G56.02 Active 287670450857630 Problem Carpal tunnel syndrome of left wrist G56.02 Active 46309258 Problem Other chronic pain G89.29 Active 36385181 Problem Lumbago with sciatica, right side M54.41 Active 675741329 Problem Hyperlipidemia, unspecified hyperlipidemia type E78.5 Active 30587294 Problem Degenerative disc disease at L5-S1 level M51.36 Active 89883678 Problem Arthritis M19.90 Active 0724392 Problem Intention tremor G25.2 Active 28729790 ALLERGIES No Information ENCOUNTERS Encounter Location Date Diagnosis [place] [address] [address]- [address] Oct, [facility] [address] [place] [id number] [place] [address] 39391- 6817 Sep, Other chronic pain G89.29 [facility] [address] [address] Sep, Degenerative disc disease at L5-S1 level M51.36 [facility] [address] [place] [id number] Aug, Lumbago with sciatica, right side M54.41 ; Other chronic pain G89.29 and BMI 40.0-44.9, adult Z68.41 [facility] [address] [place] [id number] [place] [address] 08032- 0357 Aug, Degenerative disc disease at L5-S1 level M51.36 [facility] [address] [place] [id number] [place] [address] 57680- 8787 Aug, Tooth abscess K04.7 [facility] [address] [place] [id number] [place] [address] 30523- 3548 Jul, Degenerative disc disease at L5-S1 level M51.36 [facility] [address] [place] [id number] [place] [address] 33572- 4599 Jun, [facility] [address] [place] [id number] [place] [address] 74247- 9388 Jun, Degenerative disc disease at L5-S1 level M51.36 [facility] [address] 36224- 3904 Jun, Degenerative disc disease at L5-S1 level M51.36 [place] [address] [place] [id number] [place] [address] 24143- 8510 May, Degenerative disc disease at L5-S1 level M51.36 [facility] [address] [place] [id number] [place] [address] 66364- 0462 Apr, Degenerative disc disease at L5-S1 level M51.36 ; Arthritis M19.90 and Intention tremor G25.2 [facility] [address] [place] [id number] [place] [address] 86288- 0055 Apr, Degenerative disc disease at L5-S1 level M51.36 [facility] [address] [place] [id number] [place] [address] 33429- 1466 Mar, [facility] [address] [place] [id number] [place] [address] 42707- 6985 Mar, [facility] [address] [place] [id number] [place] [address] 85501- 0799 18 Mar, 2017 Degenerative disc disease at L5-S1 level M51.36 [facility] [address] [place] [id number] [place] [address] 05643- 0759 Feb, [facility] [address] [place] [id number] [place] [address] 25688- 4815 Feb, Degenerative disc disease at L5-S1 level M51.36 [facility] [address], [place] [address]- 295[address] Feb, [facility] [address] [place] [address] [id number] [place] [address] 39169- 6385 Jan, [facility] [address] [place] [id number] [place] [address] 50227- 3506 Jan, Hyperlipidemia, unspecified hyperlipidemia type E78.5 ; Degenerative disc disease at L5-S1 level M51.36 ; Right hip pain M25.551 ; Piriformis syndrome, right G57.01 and Pre-diabetes R73.03 [facility] [address] [place] [id number] [place] [address] 18441- 6486 Jan, Degenerative disc disease at L5-S1 level M51.36 [facility] [address] [place] [id number] [place] [address] 61368- 1262 Jan, [facility] [address] [place] [address] [id number] [place] [address] 10874- 3878 Dec, Degenerative disc disease at L5-S1 level M51.36 ; Right hip pain M25.551 and Piriformis syndrome, right G57.01 [facility] [address], [place] [address]- 06[address] Dec, [facility] [address], [place] [address]- 6911 Dec, [facility] [address] [place] [address] [id number] [place] [address] 67530- 1366 Dec, Degenerative disc disease at L5-S1 level M51.36 [facility] [address], [place] [address]- 1528 November, [facility] [address], [place] [address]- 4605 November, Right hip pain M25.551 and Hyperlipidemia, unspecified hyperlipidemia type E78.5 [facility] [address] [place] [address] 03378- 7759 Aug, Acute right-sided low back pain without sciatica M54.5 and Oral lesion K13.70 [facility] [address] [place] [address] [id number] [place] [address] 34168- 0364 Jul, Left carpal tunnel syndrome G56.02 [facility] [address] [place] [address] [id number] [place] [address] 24477- 3305 Jun, [facility] [address] [place] [address] [id number] [place] [address] 42805- 7497 May, Abscess L02.91 and Cough R05 [facility] [address] [place] [id number] [place] [address] 73781- 5338 May, [facility] [address] [address] [id number] [place] [address] 25132- 7235 May, [facility] [address] [address] [id number] [place] [address] 06992- 0380 May, [facility] [address] [place] [address] [id number] [place] [address] 41142- 3028 May, Carpal tunnel syndrome of left wrist G56.02 [facility] [address] [id number] [place] [address] 45685- 3987 Apr, [facility] [id number] [place] [address] 40575- 6065 Apr, Acute non-recurrent maxillary sinusitis J01.00 [facility] [address], [place] [address]- 9278 Oct, [facility] [address] [place] [address] [id number] [place] [address] 11412- 3188 Oct, [facility] [address] [place] [place] [id number] Sep, [facility] [address] [place] [address] 58906- 7015 Sep, [facility] [address] [place] [place] [id number] Sep, [facility] [address] [facility] [id number], [place] [address]- 7446 Sep, [facility] [address] [facility] [id number], [place] [address]- 4166 May, [facility] [address] [facility] [id number], [place] [address]- 3546 May, [facility] [address] [facility] [id number], [place] [address]- 3036 Apr, [facility] [address] [facility] [id number], [place] [address]- 1366 Apr, [facility] [address] [facility] [id number], [place] [address]- 2546 Feb, [facility] [address] [place] [id number], [place] [address]- 6146 Feb, [facility] [address] [place] [id number] Dec, [facility] [address] [facility] [id number], [place] [address] 2546 Dec, [place] [address] [place] [id number] November, [facility] [address] [facility] [id number], [place] [address]- 0146 November, IMMUNIZATIONS No Known Immunizations SOCIAL HISTORY Never Assessed REASON FOR VISIT medication refill PLAN OF CARE VITAL SIGNS MEDICATIONS Unknown Medications RESULTS No Results PROCEDURES No Known procedures INSTRUCTIONS MEDICATIONS ADMINISTERED No Known Medications MEDICAL (GENERAL) HISTORY Type Description Date Medical History borderline diabetes Medical History hyperlipidema
--- OUTSIDE RECORDS SUMMARY | 2018-01-05 21:01 | XMS REPORT | Continuity of Care Document ---
Author Author [facility] Address Unknown Phone Unavailable Allergies Active Description Code Type Severity Reaction Onset Reported/Identified Relationship to Patient Clinical Status Yes No Known Drug Allergies [id number] Drug Allergy Unknown N/A 09/17/2016 Medications There is no data. Problems Date Dx Coded Attending Type Code Diagnosis Diagnosed By 12/16/2013 MYCHAL MONDRAGON APRN 380.4 CERUMEN IMPACTION 12/16/2013 MYCHAL MONDRAGON APRN 380.4 CERUMEN IMPACTION 12/16/2013 MYCHAL MONDRAGON APRN 380.4 CERUMEN IMPACTION 12/16/2013 MYCHAL MONDRAGON APRN 380.4 CERUMEN IMPACTION 12/16/2013 MYCHAL MONDRAGON APRN 380.4 CERUMEN IMPACTION 12/30/2013 MYCHAL MONDRAGON APRN 682.6 CELLULITIS AND ABSCESS OF LEG EXCEPT FOOT 12/30/2013 MYCHAL OMNDRAGON APRN 682.6 CELLULITIS AND ABSCESS OF LEG EXCEPT FOOT 12/30/2013 MYCHAL MONDRAGON APRN 682.6 CELLULITIS AND ABSCESS OF LEG EXCEPT FOOT 12/30/2013 MYCHAL MONDRAGON APRN 682.6 CELLULITIS AND ABSCESS OF LEG EXCEPT FOOT 10/06/2014 MYCHAL MONDRAGON APRN 382.9 OTITIS MEDIA 09/17/2016 CUBA SWARTZ, BOLA T Ot F17.210 NICOTINE DEPENDENCE, CIGARETTES, UNCOMPL 09/17/2016 BOLA BRINK MD T Ot M25.532 PAIN IN LEFT WRIST 09/17/2016 BOLA BRINK MD T Ot M25.551 PAIN IN RIGHT HIP 09/19/2016 BOLA BRINK MD T Ot F17.210 NICOTINE DEPENDENCE, CIGARETTES, UNCOMPL 09/19/2016 BOLA BRINK MD T Ot M25.532 PAIN IN LEFT WRIST 09/19/2016 BOLA BRINK MD T Ot M25.551 PAIN IN RIGHT HIP 09/27/2016 BOLA BRINK MD T Ot F17.210 NICOTINE DEPENDENCE, CIGARETTES, UNCOMPL 09/27/2016 BOLA BRINK MD Ot N41.9 INFLAMMATORY DISEASE OF PROSTATE, UNSPEC 09/27/2016 BOLA BRINK MD Ot N50.3 CYST OF EPIDIDYMIS 09/27/2016 BOLA BRINK MD Ot N50.812 LEFT TESTICULAR PAIN 09/27/2016 BOLA BRINK MD Ot F17.210 NICOTINE DEPENDENCE, CIGARETTES, UNCOMPL 09/27/2016 BOLA BRINK MD Ot N41.9 INFLAMMATORY DISEASE OF PROSTATE, UNSPEC 09/27/2016 BOLA BRINK MD Ot N50.3 CYST OF EPIDIDYMIS 09/27/2016 BOLA BRINK MD Ot N50.812 LEFT TESTICULAR PAIN Procedures There is no data. Results Test Result Range Viral Culture, General - 09/19/16 17:34 Viral Culture, General No virus isolated. Viral Culture, General - 09/19/16 17:34 Viral Culture, General No virus isolated. Complete urinalysis with reflex to culture - 09/27/16 05:00 Urine color determination YELLOW NRG Urine clarity determination CLEAR NRG Urine pH measurement by test strip 6 5-9 Specific gravity of urine by test strip 1.015 1.016- 1.022 Urine protein assay by test strip, semi-quantitative 1+ NEGATIVE Urine glucose detection by automated test strip NEGATIVE NEGATIVE Erythrocytes detection in urine sediment by light microscopy 4+ NEGATIVE Urine ketones detection by automated test strip NEGATIVE NEGATIVE Urine nitrite detection by test strip NEGATIVE NEGATIVE Urine total bilirubin detection by test strip NEGATIVE NEGATIVE Urine urobilinogen measurement by automated test strip (mass/volume) NORMAL NORMAL Urine leukocyte esterase detection by dipstick NEGATIVE NEGATIVE Automated urine sediment erythrocyte count by microscopy (number/high power field) [HPF] NRG Automated urine sediment leukocyte count by microscopy (number/high power field ) RARE NRG Bacteria detection in urine sediment by light microscopy NEGATIVE NRG Squamous epithelial cells detection in urine sediment by light microscopy RARE NRG Crystals detection in urine sediment by light microscopy NONE NRG Casts detection in urine sediment by light microscopy NONE NRG Mucus detection in urine sediment by light microscopy SMALL NRG Complete urinalysis with reflex to culture NO NRG Chlamydia DNA amp probe, urine - 09/27/16 06:40 Chlamydia DNA amp probe, urine Negative Negative Urine Neisseria gonorrhoeae DNA assay - 09/27/16 06:40 Gonorrhea amp DNA-urine Negative Negative CBC With Differential/Platelet - 02/15/17 11:42 WBC 10.2 x10E3/uL 3.4-10.8 RBC 5.61 x10E6/uL 4.14-5.80 Hemoglobin 14.6 g/dL 12.6-17.7 Hematocrit 45.9 % 37.5-51.0 MCV 82 fL 79-97 MCH 26.0 pg 26.6-33.0 MCHC 31.8 g/dL 31.5-35.7 RDW 15.3 % 12.3-15.4 Platelets 383 x10E3/uL 150-379 Neutrophils 59 % Lymphs 31 % Monocytes 7 % Eos 3 % Basos 0 % Neutrophils (Absolute) 5.9 x10E3/uL 1.4-7.0 Lymphs (Absolute) 3.2 x10E3/uL 0.7-3.1 Monocytes(Absolute) 0.7 x10E3/uL 0.1-0.9 Eos (Absolute) 0.3 x10E3/uL 0.0-0.4 Baso (Absolute) 0.0 x10E3/uL 0.0-0.2 Immature Granulocytes 0 % Immature Grans (Abs) 0.0 x10E3/uL 0.0-0.1 Comp. Metabolic Panel (14) - 02/15/17 11:42 Glucose, Serum 101 mg/dL 65-99 BUN 9 mg/dL 6-24 Creatinine, Serum 0.89 mg/dL 0.76-1.27 eGFR If NonAfricn Am 103 mL/min/1.73 >59 eGFR If Africn Am 119 mL/min/1.73 >59 BUN/Creatinine Ratio 10 9-20 Sodium, Serum 144 mmol/L 134-144 Potassium, Serum 4.1 mmol/L 3.5-5.2 Chloride, Serum 107 mmol/L 96-106 Carbon Dioxide, Total 20 mmol/L 18-29 Calcium, Serum 9.4 mg/dL 8.7-10.2 Protein, Total, Serum 6.9 g/dL 6.0-8.5 Albumin, Serum 3.9 g/dL 3.5-5.5 Globulin, Total 3.0 g/dL 1.5-4.5 A/G Ratio 1.3 1.2-2.2 Bilirubin, Total 0.3 mg/dL 0.0-1.2 Alkaline Phosphatase, S 130 IU/L 39-117 AST (SGOT) 12 IU/L 0-40 ALT (SGPT) 17 IU/L 0-44 Lipid Panel - 02/15/17 11:42 Cholesterol, Total 134 mg/dL 100-199 Triglycerides 114 mg/dL 0-149 HDL Cholesterol 31 mg/dL >39 VLDL Cholesterol Pedrito 23 mg/dL 5-40 LDL Cholesterol Calc 80 mg/dL 0-99 TSH - 02/15/17 11:42 TSH 1.470 uIU/mL 0.450-4.500 Encounters ACCT No. Visit Date/Time Discharge Status Pt. Type Provider Facility Loc./Unit Complaint [id number] 10/06/2014 09:27:00 10/06/2014 23:59:59 CLS Outpatient MYCHAL MONDRAGON APRN [id number] 05/06/2014 06:45:00 05/06/2014 23:59:59 CLS Outpatient MYCHAL MONDRGAON APRN [id number] 03/03/2014 10:24:00 03/03/2014 23:59:59 CLS Outpatient MYCHAL MONDRAGON APRN [id number] 12/30/2013 09:11:00 12/30/2013 23:59:59 CLS Outpatient MYCHAL MONDRAGON APRN [id number] 12/16/2013 09:05:00 12/16/2013 23:59:59 CLS Outpatient MYCHAL MONDRAGON APRN [id number] 09/29/2016 10:10:00 Document Registration [id number] 02/16/2017 08:39:00 Document Registration [id number] 12/12/2017 10:00:00 12/12/2017 23:59:59 [facility] [place] [id number] 09/29/2016 10:10:00 Document Registration [id number] 11/08/2016 13:30:00 11/08/2016 23:59:59 CLS Outpatient KAMINI GALLEGSO DO [facility] RAD SCIATICA NOT IMPROVING [id number] 09/27/2016 04:49:00 09/27/2016 06:59:00 DIS Emergency CUBA SWARTZ, BOLA Márquez [facility] ER SHARP PAIN IN TESTICAL [id number] 09/17/2016 16:14:00 09/17/2016 16:53:00 DIS Emergency CUBA SWARTZ, BOLA Cantu Via [facility] ER R HIP AND L WRIST PAIN
[2018-01-05] MEDS ORDERED: AMOXICILLIN 500 MG (POLYMOX) CAP PO STA (21:05)
[2018-01-05] MEDS ORDERED: GEMF600T PO (21:07)
[2018-01-05] MEDS ORDERED: IBUP-1780 (21:07)
[2018-01-05] MEDS ORDERED: PREG25CA PO (21:07)
[2018-01-05] MEDS ORDERED: AMOX500C2 PO (21:11)
--- NOTE | 2018-01-05 21:11 | ED EENT ---
History of Present Illness General Chief Complaint: Dental Problems/Pain Stated Complaint: DENTAL PAIN Nursing Triage Note: DENTAL PAIN Source: patient, other Exam Limitations: no limitations History of Present Illness Date Seen by Provider: Jan 05, 2018 Time Seen by Provider: 21:00 Initial Comments The patient presents to the ER by private conveyance with a chief complaint his right upper teeth are having a lot of pain in the last 2-3 days. His plan was to get in Sunday with the dentist but yesterday became unbearable. He has been using Tylenol Motrin and his last dose of Tylenol was 2 hours prior to arrival 1000 mg and he says it did not do anything for his pain. He is not using Orajel yet. He has not been on antibiotics in the last 4 weeks. He's not having any discharge from the mouth, fevers, nausea, chills. Allergies and Home Medications Allergies Coded Allergies: No Known Drug Allergies (Unverified , 09/17/16) Home Medications Ciprofloxacin HCl 500 Mg Tablet, 500 MG PO BID Prescribed by: BOLA CABRERA on 09/27/16 0630 Gemfibrozil 600 Mg Tablet, 600 MG PO HS, (Reported) Hydrocodone Bit/Acetaminophen 1 Each Tablet, 1-2 EACH PO Q6H PRN for PAIN Prescribed by: BOLA CABRERA on 09/27/16 0630 Tramadol HCl 50 Mg Tablet, 50 MG PO Q6H PRN for PAIN Prescribed by: BOLA CABRERA on 09/17/16 1644 Patient Home Medication List Home Medication List Reviewed: Yes Review of Systems Constitutional: No chills, No diaphoresis Eyes: Denies Blindness, Denies Blurred Vision Ears: Denies Dizziness, Denies Pain Nose: denies clots, denies congestion Mouth: see HPI; denies clots; pain; denies swelling Throat: denies pain, denies swelling Respiratory: No cough, No short of breath Cardiovascular: No chest pain, No edema Gastrointestinal: No abdominal pain, No constipation, No diarrhea, No nausea, No vomiting Past Jklvuqu-Frueif-Lpbfdc Hx Patient Social History Alcohol Use: Denies Use Recreational Drug Use: No Smoking Status: Current Someday Smoker Type Used: Cigarettes 2nd Hand Smoke Exposure: No Recent Foreign Travel: No Contact w/Someone Who Travel: No Recent Infectious Disease Expo: No Recent Hopitalizations: No Immunizations Up To Date Tetanus Booster (TDap): Unknown Seasonal Allergies Seasonal Allergies: No Past Medical History Surgeries: No Respiratory: No Cardiac: Yes High Cholesterol Neurological: No Reproductive Disorders: No Genitourinary: No Gastrointestinal: No Musculoskeletal: Yes (carpal tunnel syndrome, sciatica) Arthritis, Chronic Back Pain Endocrine: Yes (borderline diabetes) HEENT: No Cancer: No Psychosocial: No Integumentary: No Blood Disorders: No Physical Exam Vital Signs Vital Signs - First Documented 01/05/18 20:55 Temp 98.2 Pulse 83 Resp 18 B/P (MAP) 143/95 (111) Pulse Ox 99 O2 Delivery Room Air General Appearance: WD/WN, no apparent distress Eyes: bilateral eye normal inspection, bilateral eye PERRL, bilateral eye EOMI Ears: bilateral ear auricle normal, bilateral ear canal normal, bilateral ear TM normal Nose: normal inspection; No active bleeding Mouth/Throat: other (dental caries with gingival swelling) Neck: non-tender, supple, normal inspection Cardiovascular: normal peripheral pulses, regular rate, rhythm Respiratory: no respiratory distress, no accessory muscle use Neurologic/Psychiatric: alert, oriented x 3 Progress/Results/Core Measures Results/Orders My Orders Orders - CYNTHIA SAWANT Ketorolac Injection (Toradol Injection) (01/05/18 21:15) Lidocaine 2% Viscous 15 Ml (Xylocaine Vi (01/05/18 21:15) Amoxicillin Capsule (Polymox Capsule) (01/05/18 21:05) Vital Signs/I&O 01/05/18 20:55 Temp 98.2 Pulse 83 Resp 18 B/P (MAP) 143/95 (111) Pulse Ox 99 O2 Delivery Room Air Blood Pressure Mean: 111 Progress Progress Note : Time: 21:08 Progress Note I am ketorolac, first dose of amoxicillin and viscous lidocaine. Departure Impression Primary Impression: Pain due to dental caries Disposition: 01 HOME, SELF-CARE Condition: Improved Departure-Patient Inst. Decision time for Depature: 21:10 Referrals: CALE UGALDE MD (PCP/Family) Primary Care Physician Patient Instructions: Dental Pain (DC) Add. Discharge Instructions: Use good oral hygiene and apply viscous lidocaine as needed to a piece of gauze and bite down on the socket of the tooth causing the most pain. When he ran out of viscous lidocaine you can use Orajel. Use Tylenol 1000 mg every 8 hours as well as ibuprofen 800 mg every 8 hours. You can alternate them so every 4 hours you to be taking something. You can use ice packs alternating with heating pads. Start taking the antibiotics 1 capsule 3 times a day for the next week. Make plans to follow-up Sunday with your dentist. All discharge instructions reviewed with patient and/or family. Voiced understanding. Scripts Amoxicillin (Amoxicillin) 500 Mg Capsule 500 MG PO TID, #21 CAP 0 Refills Prov: CYNTHIA SAWANT 01/05/18 Copy Copies To 1: ALFREDO KESSLER DO CYNTHIA SAWANT Jan 05, 2018 21:11
[2018-01-05] MEDS ORDERED: KETOROLAC 30 MG/ML VIAL IM ONE (21:15)
[2018-01-05] MEDS ORDERED: LIDOCAINE 2% VISCOUS 15 ML UDC PO ONE (21:15)
[2018-01-05 21:19] VITALS: BP 143/95
== END 2018-01-05 21:19 | disposition home or self-care (01) ==
LOC: EDUNIT# 20:53 → ER 20:55
DX: K02.9 Dental caries, unspecified (principal); K08.89 Other specified disorders of teeth and supporting structures; E78.00 Pure hypercholesterolemia, unspecified; F17.210 Nicotine dependence, cigarettes, uncomplicated
CPT/HCPCS: 96372; 99284

== ENCOUNTER → 2018-08-09 | Outpatient (CLI) | payer SELFPAY ==
[~2018-08-09] MED LIST changes: +AMOX500C2 PO; +IBUP-1780; +PREG25CA PO
--- NOTE | 2018-08-09 09:55 | Diagnostic Imaging Report ---
CLINICAL INDICATION: Patient with chronic low back pain and increased pain. Recently a right leg radiculopathy. EXAM: MRI of the lumbar spine performed without IV contrast. Sequences include sagittal T2, sagittal T1, sagittal T2 fat-sat, and axial T2. COMPARISON: MRI of the lumbar spine performed without contrast dated 11/06/2016. FINDINGS: There is no acute lumbar spine fracture or dislocation. There is no abnormal marrow signal. The visualized portions of the distal thoracic spinal cord, conus medullaris, and cauda equina nerve roots are unremarkable. Conus medullaris tip is seen at the upper L1 vertebral body level. There is no significant paraspinal soft tissue abnormality. T12-L1, L1-L2, and L2-L3: There is stable mild facet arthropathy at the L1-L2 and L2-L3 levels. Otherwise, these levels are unremarkable. L3-L4: Stable mild disc bulge in the foraminal regions bilaterally causing moderate bilateral neural foramen narrowing. There is no significant central canal narrowing. There is mild bilateral facet arthropathy. L4-L5: Stable mild disc bulge posteriorly which extend into the foraminal regions bilaterally which causes severe right neural foramen narrowing and moderate to severe left neural foramen narrowing. There are stable moderate facet arthropathy and ligamentum flavum buckling. Stable mild central canal narrowing. L5-S1: Stable mild to moderate bilateral facet arthropathy with mild bilateral neural foramen narrowing (left side more than the right). There is no significant disc bulge. IMPRESSION: 1: Stable degenerative disease of the lumbar spine with no acute fracture or dislocation. 2: Stable small posterior disc bulges at the L3-L4 and L4-5 levels with facet arthropathy. There is stable severe right L4-5 neural foramen narrowing, moderate to severe left L4-L5 neural foramen narrowing, and moderate bilateral L3-4 neural foramen narrowing. 3: Stable mild L5-S1 bilateral neural foramen narrowing. Dictated by: Dictated on workstation # [id number]
== END ==
LOC: RAD 06:52
PROVIDERS: ATTEND Internal Medicine
DX: M47.816 Spondylosis without myelopathy or radiculopathy, lumbar region (principal); M51.16 Intervertebral disc disorders with radiculopathy, lumbar region; M48.07 Spinal stenosis, lumbosacral region
CPT/HCPCS: 72148

== ENCOUNTER 2018-12-18 17:52 | Emergency (ER) | payer SELFPAY ==
[~2018-12-18] VITALS: Ht 172.7 cm; Wt 122.5 kg
--- OUTSIDE RECORDS SUMMARY | 2018-12-18 17:58 | XMS REPORT ---
Author Author MYCHAL MONDRAGON Organization [facility] Address [address] [place] [address] Care Team Providers Care Blade Boner Name Role Phone MYCHAL MONDRAGON Unavailable PROBLEMS Type Condition ICD9-CM Code NQY38-UR Code Onset Dates Condition Status SNOMED Code Problem Left carpal tunnel syndrome G56.02 Active [id number] Problem Carpal tunnel syndrome of left wrist G56.02 Active 19934624 Problem Other chronic pain G89.29 Active 76150263 Problem Lumbago with sciatica, right side M54.41 Active 858681806 Problem Hyperlipidemia, unspecified hyperlipidemia type E78.5 Active 87206264 Problem Degenerative disc disease at L5-S1 level M51.36 Active 52093786 Problem Arthritis M19.90 Active 8534929 Problem Intention tremor G25.2 Active 84329528 ALLERGIES No Known Allergies ENCOUNTERS Encounter Location Date Diagnosis [facility] [id number] [place] [address] Mar, [facility] [id number] [place] [address] Jan, [facility] [id number] [place] [address] Jan, Skin tag L91.8 [facility] [id number] [place] [address] Jan, [facility] [id number] [place] [address] Jan, [facility] [id number] [place] [address] Jan, Acute diarrhea R19.7 [facility] [address] [address] Jan, [facility] [address] [place] [address] Jan, Degenerative disc disease at L5-S1 level M51.36 ; Lumbago with sciatica, right side M54.41 ; Skin tag L91.8 and BMI 40.0-44.9, adult Z68.41 [facility] [id number] [address] Dec, Acute diarrhea R19.7 ; Impacted cerumen of both ears H61.23 ; Systemic antibiotic causing adverse effect in therapeutic use, initial encounter T36.95XA and BMI 40.0-44.9, adult Z68.41 [facility] [id number] [place] [address] Dec, [facility] [id number] [place] [address] Dec, [facility] [id number] [place] [address] November, [facility] [id number] [place] [address] Oct, [facility] [id number] [place] [address] Oct, [facility] [id number] [address] Oct, [facility] [id number] [place] [address] Oct, Lumbago with sciatica, right side M54.41 ; Degenerative disc disease at L5-S1 level M51.36 and BMI 40.0-44.9, adult Z68.41 [facility] [address] [place] [address] Sep, Other chronic pain G89.29 [facility] [id number] [place] [address] Sep, Degenerative disc disease at L5-S1 level M51.36 [facility] [address] [place] [id number] Aug, Lumbago with sciatica, right side M54.41 ; Other chronic pain G89.29 and BMI 40.0- 44.9, adult Z68.41 [facility] [id number] [place] [address] Aug, Degenerative disc disease at L5-S1 level M51.36 [facility] [address] [address] Aug, Tooth abscess K04.7 [place] [address] [address] Jul, Degenerative disc disease at L5-S1 level M51.36 [place] [address] [address] Jun, [place] [address] [address] Jun, Degenerative disc disease at L5-S1 level M51.36 [place] [address] [address] Jun, Degenerative disc disease at L5-S1 level M51.36 [place] [id number] [place] [address] May, Degenerative disc disease at L5-S1 level M51.36 [facility] [address] [address] Apr, Degenerative disc disease at L5-S1 level M51.36 ; Arthritis M19.90 and Intention tremor G25.2 [place] [address] [address] Apr, Degenerative disc disease at L5-S1 level M51.36 [facility] [address] [address] Mar, [place] [address], [place] [address] Mar, [facility] [id number] [place] [address] Mar, Degenerative disc disease at L5-S1 level M51.36 [facility] [address], [place] [address] Feb, [facility] [id number] [place] [address] Feb, Degenerative disc disease at L5-S1 level M51.36 [facility] [id number] [place] [address] Feb, [facility] [id number] [place] [address] Jan, [facility] [id number] [place] [address] Jan, Hyperlipidemia, unspecified hyperlipidemia type E78.5 ; Degenerative disc disease at L5-S1 level M51.36 ; Right hip pain M25.551 ; Piriformis syndrome, right G57.01 and Pre-diabetes R73.03 [facility] [address] [place] [address] Jan, Degenerative disc disease at L5-S1 level M51.36 [facility] [address] [address] Jan, [facility] [id number] [place] [address] Dec, Degenerative disc disease at L5-S1 level M51.36 ; Right hip pain M25.551 and Piriformis syndrome, right G57.01 [facility] [address], [place] [address] Dec, [facility] [id number] [place] [address] Dec, [facility] [id number] [place] [address] Dec, Degenerative disc disease at L5-S1 level M51.36 [place] [address] [address] November, [place] [address] [address] November, Right hip pain M25.551 and Hyperlipidemia, unspecified hyperlipidemia type E78.5 [place] [address] [address] Aug, Acute right-sided low back pain without sciatica M54.5 and Oral lesion K13.70 [place] [id number] [place] [address] Jul, Left carpal tunnel syndrome G56.02 [place] [address] [address] Jun, [place] [address] [address] May, Abscess L02.91 and Cough R05 [place] [id number] [place] [address] May, [place] [id number] [place] [address] May, [place] [id number] [place] [address] May, [facility] [id number] [place] [address] May, Carpal tunnel syndrome of left wrist G56.02 [facility] [id number] [place] [address] Apr, [facility] [id number] [place] [address] Apr, Acute non-recurrent maxillary sinusitis J01.00 [facility] [address] [id number] [address] 14 Oct, 2014 [facility] [address] [facility] [id number] [address] Oct, [facility] [address] [place] [id number] Sep, [facility] [address] [facility] [id number], [place] [address] Sep, [facility] [address] [place] [id number] Sep, [facility] [address] [id number], [place] [address] Sep, [facility] [address] [facility] [id number], [place] [address] May, [facility] [address] [facility] [id number] [address] May, [facility] [address] [facility] [id number] [address] Apr, [facility] [address] [facility] [id number], [place] [address] Apr, [facility] [address] [facility] [id number], [place] [address] Feb, [facility] [address] [facility] [id number], [place] [address] Feb, [facility] [address] [place] [id number] Dec, [facility] [address] [facility] [id number], [place] [address] Dec, [facility] [address] [place] [id number] November, [facility] [address] [facility] [id number], [place] [address] November, IMMUNIZATIONS No Known Immunizations SOCIAL HISTORY Never Assessed REASON FOR VISIT skin tag removal from right thighKatya MARTINEZ PLAN OF CARE Activity Details Future/Pending Procedure SKIN TAG REM 1-15 VITAL SIGNS Height 68 in 2018-02-05 Weight 273.7 lbs 2018-02-05 Temperature 98.0 degrees Fahrenheit 2018-02-05 Heart Rate 86 bpm 2018-02-05 Respiratory Rate 20 2018-02-05 BMI 41.61 kg/m2 2018-02-05 Blood pressure systolic 132 mmHg 2018-02-05 Blood pressure diastolic 90 mmHg 2018-02-05 MEDICATIONS Medication Instructions Dosage Frequency Start Date End Date Duration Status Lyrica 100 MG Orally Twice a day 1 capsule 12h Active Ibuprofen 800 MG Orally Three times a day 1 tablet with food or milk as needed 8h 30 days Active Lopid 600 MG Orally Twice a day 1 tablet 12h Not-Taking RESULTS No Results PROCEDURES Procedure Date Ordered Result Body Site REMOVAL OF SKIN TAGS February 05, 2018 INSTRUCTIONS MEDICATIONS ADMINISTERED No Known Medications MEDICAL (GENERAL) HISTORY Type Description Date Medical History borderline diabetes Medical History hyperlipidema
--- OUTSIDE RECORDS SUMMARY | 2018-12-18 17:58 | XMS REPORT ---
Author Author CALE UGALDE Organization [facility] Address [address] [place] [address] Care Team Providers Care Solid Waste Technician Name Role Phone CALE UGALDE Unavailable PROBLEMS Type Condition ICD9-CM Code PVN05-YK Code Onset Dates Condition Status SNOMED Code Problem Left carpal tunnel syndrome G56.02 Active [id number] Problem Carpal tunnel syndrome of left wrist G56.02 Active 45756134 Problem Other chronic pain G89.29 Active 85247299 Problem Lumbago with sciatica, right side M54.41 Active 751690578 Problem Hyperlipidemia, unspecified hyperlipidemia type E78.5 Active 86522472 Problem Degenerative disc disease at L5-S1 level M51.36 Active 30737090 Problem Arthritis M19.90 Active 3917565 Problem Intention tremor G25.2 Active 30283287 ALLERGIES No Information ENCOUNTERS Encounter Location Date Diagnosis [place] [address] [address] Jan, [facility] [address] [place] [id number] [place] [address] Jan, Skin tag L91.8 [facility] [address] [place] [id number] [place] [address] Jan, [facility] [address] [id number] [place] [address] Jan, [facility] [address] [address] Jan, Acute diarrhea R19.7 [facility] [address] [place] [id number] [place] [address] Jan, [facility] [address] [address] Jan, Degenerative disc disease at L5-S1 level M51.36 ; Lumbago with sciatica, right side M54.41 ; Skin tag L91.8 and BMI 40.0-44.9, adult Z68.41 [facility] [address] [address] [id number] [place] [address] Dec, Acute diarrhea R19.7 ; Impacted cerumen of both ears H61.23 ; Systemic antibiotic causing adverse effect in therapeutic use, initial encounter T36.95XA and BMI 40.0-44.9, adult Z68.41 [facility] [address] [id number] [place] [address] Dec, [facility] [id number] [place] [address] Dec, [facility] [id number] [place] [address] November, [facility] [id number] [place] [address] Oct, [facility] [address] [address] [id number] [place] [address] Oct, [facility] [id number] [place] [address] Oct, [facility] [address] [id number] [place] [address] Oct, Lumbago with sciatica, right side M54.41 ; Degenerative disc disease at L5-S1 level M51.36 and BMI 40.0-44.9, adult Z68.41 [facility] [address] [id number] [place] [address] Sep, Other chronic pain G89.29 [facility] [address] [id number] [place] [address] Sep, Degenerative disc disease at L5-S1 level M51.36 [facility] [address] [place] [id number] Aug, Lumbago with sciatica, right side M54.41 ; Other chronic pain G89.29 and BMI 40.0- 44.9, adult Z68.41 [place] [address] [id number] [place] [address] Aug, Degenerative disc disease at L5-S1 level M51.36 [place] [address] [address] Aug, Tooth abscess K04.7 [facility] [address] [address] Jul, Degenerative disc disease at L5-S1 level M51.36 [place] [address] [address] Jun, [place] [address] [address] Jun, Degenerative disc disease at L5-S1 level M51.36 [place] [address] [address] Jun, Degenerative disc disease at L5-S1 level M51.36 [place] [address] [address] May, Degenerative disc disease at L5-S1 level M51.36 [place] [address] [id number] [place] [address] Apr, Degenerative disc disease at L5-S1 level M51.36 ; Arthritis M19.90 and Intention tremor G25.2 [facility] [address] [place] [id number] [place] [address] Apr, Degenerative disc disease at L5-S1 level M51.36 [facility] [address] [place] [id number] [place] [address] Mar, [place] [address] [place] [id number] [place] [address] Mar, [place] [address] [address] Mar, Degenerative disc disease at L5-S1 level M51.36 [facility] [address] [place] [id number] [address] Feb, [facility] [address], [place] [address] Feb, Degenerative disc disease at L5-S1 level M51.36 [facility] [address] [place] [id number] [address] Feb, [facility] [address] [place] [id number] [place] [address] Jan, [facility] [address] [place] [id number] [address] Jan, Hyperlipidemia, unspecified hyperlipidemia type E78.5 ; Degenerative disc disease at L5-S1 level M51.36 ; Right hip pain M25.551 ; Piriformis syndrome, right G57.01 and Pre-diabetes R73.03 [facility] [address] [place] [id number] [address] Jan, Degenerative disc disease at L5-S1 level M51.36 [facility] [address], [place] [address] Jan, [facility] [address], [place] [address] Dec, Degenerative disc disease at L5-S1 level M51.36 ; Right hip pain M25.551 and Piriformis syndrome, right G57.01 [facility] [address], [place] [address] Dec, [facility] [address] [place] [address] Dec, [facility] [address], [place] [address] Dec, Degenerative disc disease at L5-S1 level M51.36 [facility] [address] [address] November, [facility] [address] [address] November, Right hip pain M25.551 and Hyperlipidemia, unspecified hyperlipidemia type E78.5 [place] [address] [address] Aug, Acute right-sided low back pain without sciatica M54.5 and Oral lesion K13.70 [place] [address] [address] Jul, Left carpal tunnel syndrome G56.02 [place] [address] [address] Jun, [facility] [address] [address] May, Abscess L02.91 and Cough R05 [facility] [address] [address] May, [facility] [address] [address] May, [facility] [address] [place] [id number] [place] [address] May, [facility] [address] [address] May, Carpal tunnel syndrome of left wrist G56.02 [facility] [address] [address] Apr, [facility] [address] [address] Apr, Acute non-recurrent maxillary sinusitis J01.00 [facility] [address] [address] Oct, [facility] [address] [facility] [id number], [place] [address] Oct, [facility] [address] [place] [id number] Sep, [facility] [address] [facility] [id number], [place] [address] Sep, [facility] [address] [place] [id number] Sep, [facility] [address] [facility] [id number], [place] [address] Sep, [facility] [address] [facility] [id number], [place] [address] May, [facility] [address] [facility] [id number], [place] [address] May, [facility] [address] [facility] [id number], [place] [address] Apr, [facility] [address] [facility] [id number], [place] [address] Apr, [facility] [address] [facility] [id number], [place] [address] Feb, [facility] [address] [facility] [id number], [place] [address] Feb, [facility] [address] [place] [id number] Dec, [facility] [address] [facility] [id number], [place] [address] Dec, [facility] [address] [facility] [place] [id number] November, [facility] [address] [facility] [id number], [place] [address] November, IMMUNIZATIONS No Known Immunizations SOCIAL HISTORY Never Assessed REASON FOR VISIT Lab (walk-in) PLAN OF CARE VITAL SIGNS MEDICATIONS Unknown Medications RESULTS No Results PROCEDURES Procedure Date Ordered Result Body Site LEUKOCYTE COUNT, FECAL January 28, 2018 FECES CULTURE, BACTERIA January 28, 2018 C DIFF AMPLIFIED PROBE January 28, 2018 INSTRUCTIONS MEDICATIONS ADMINISTERED No Known Medications MEDICAL (GENERAL) HISTORY Type Description Date Medical History borderline diabetes Medical History hyperlipidema
--- OUTSIDE RECORDS SUMMARY | 2018-12-18 17:58 | XMS REPORT ---
Author Author MYCHAL MONDRAGON Organization [facility] Address [address] [place] [address] Care Team Providers Care Hospice Registered Nurse Name Role Phone MYCHAL MONDRAGON Unavailable PROBLEMS Type Condition ICD9-CM Code JDD49-TC Code Onset Dates Condition Status SNOMED Code Problem Left carpal tunnel syndrome G56.02 Active [id number] Problem Carpal tunnel syndrome of left wrist G56.02 Active 52555291 Problem Other chronic pain G89.29 Active 20925435 Problem Lumbago with sciatica, right side M54.41 Active 099756999 Problem Hyperlipidemia, unspecified hyperlipidemia type E78.5 Active 51444926 Problem Degenerative disc disease at L5-S1 level M51.36 Active 25725939 Problem Arthritis M19.90 Active 2054774 Problem Intention tremor G25.2 Active 90928785 ALLERGIES No Information ENCOUNTERS Encounter Location Date Diagnosis [facility] [address] [place] [id number] [place] [address] Mar, [facility] [address] [place] [id number] [place] [address] Jan, [facility] [address] [place] [id number] [place] [address] Jan, Skin tag L91.8 [facility] [address] [place] [id number] [place] [address] Jan, [facility] [address] [place] [id number] [place] [address] Jan, [facility] [address] [place] [id number] [place] [address] Jan, Acute diarrhea R19.7 [facility] [address] [address] Jan, [facility] [address], [place] [address] Jan, Degenerative disc disease at L5-S1 level M51.36 ; Lumbago with sciatica, right side M54.41 ; Skin tag L91.8 and BMI 40.0-44.9, adult Z68.41 [facility] [address] [place] [id number], [place] [address] Dec, Acute diarrhea R19.7 ; Impacted cerumen of both ears H61.23 ; Systemic antibiotic causing adverse effect in therapeutic use, initial encounter T36.95XA and BMI 40.0-44.9, adult Z68.41 [facility] [address] [place] [id number] [place] [address] Dec, [facility] [address] [place] [id number] [place] [address] Dec, [facility] [address] [place] [id number] [place] [address] November, [facility] [address] [place] [id number] [place] [address] Oct, [facility] [address] [place] [id number] [place] [address] Oct, [facility] [address] [id number], [place] [address] Oct, [facility] [address] [place] [id number] [place] [address] Oct, Lumbago with sciatica, right side M54.41 ; Degenerative disc disease at L5-S1 level M51.36 and BMI 40.0-44.9, adult Z68.41 [facility] [address] [place] [address] Sep, Other chronic pain G89.29 [facility] [address] [place] [id number] [place] [address] Sep, Degenerative disc disease at L5-S1 level M51.36 [facility] [address] [place] [id number] Aug, Lumbago with sciatica, right side M54.41 ; Other chronic pain G89.29 and BMI 40.0- 44.9, adult Z68.41 [facility] [address] [place] [id number] [place] [address] Aug, Degenerative disc disease at L5-S1 level M51.36 [facility] [address] [address] Aug, Tooth abscess K04.7 [place] [address] [address] Jul, Degenerative disc disease at L5-S1 level M51.36 [place] [address] [address] Jun, [place] [address] [address] Jun, Degenerative disc disease at L5-S1 level M51.36 [place] [address] [address] Jun, Degenerative disc disease at L5-S1 level M51.36 [place] [address] [place] [id number] [place] [address] May, Degenerative disc disease at L5-S1 level M51.36 [facility] [address] [address] Apr, Degenerative disc disease at L5-S1 level M51.36 ; Arthritis M19.90 and Intention tremor G25.2 [place] [address] [address] Apr, Degenerative disc disease at L5-S1 level M51.36 [facility] [address] [place] [id number] [place] [address] Mar, [place] [address], [place] [address] Mar, [facility] [address] [place] [id number] [place] [address] Mar, Degenerative disc disease at L5-S1 level M51.36 [facility] [address], [place] [address] Feb, [facility] [address] [place] [id number] [place] [address] Feb, Degenerative disc disease at L5-S1 level M51.36 [facility] [address] [place] [id number] [place] [address] Feb, [facility] [address] [place] [id number] [place] [address] Jan, [facility] [address] [place] [id number] [place] [address] Jan, Hyperlipidemia, unspecified hyperlipidemia type E78.5 ; Degenerative disc disease at L5-S1 level M51.36 ; Right hip pain M25.551 ; Piriformis syndrome, right G57.01 and Pre-diabetes R73.03 [facility] [address] [place] [address] Jan, Degenerative disc disease at L5-S1 level M51.36 [facility] [address], [place] [address] Jan, [facility] [address] [place] [id number] [place] [address] Dec, Degenerative disc disease at L5-S1 level M51.36 ; Right hip pain M25.551 and Piriformis syndrome, right G57.01 [facility] [address], [place] [address] Dec, [facility] [id number], [place] [address] Dec, [facility] [address] [place] [id number] [place] [address] Dec, Degenerative disc disease at L5-S1 level M51.36 [place] [address] [address] November, [place] [address] [place] [id number] [place] [address] November, Right hip pain M25.551 and Hyperlipidemia, unspecified hyperlipidemia type E78.5 [place] [address] [address] Aug, Acute right-sided low back pain without sciatica M54.5 and Oral lesion K13.70 [place] [address] [place] [id number] [place] [address] Jul, Left carpal tunnel syndrome G56.02 [place] [address] [address] Jun, [place] [address] [place] [id number] [place] [address] May, Abscess L02.91 and Cough R05 [place] [address] [place] [id number] [place] [address] May, [place] [address] [place] [id number] [place] [address] May, [place] [address] [place] [id number] [place] [address] May, [facility] [address] [place] [id number] [place] [address] May, Carpal tunnel syndrome of left wrist G56.02 [facility] [address] [place] [id number] [place] [address] Apr, [facility] [address] [place] [id number] [place] [address] Apr, Acute non-recurrent maxillary sinusitis J01.00 [facility] [address] [facility] [id number], [place] [address] Oct, [facility] [address] [facility] [id number], [place] [address] Oct, [place] [address] [facility] [place] [id number] Sep, [facility] [address] [facility] [id number], [place] [address] Sep, [place] [address] [id number] Sep, [facility] [address] [facility] [id number], [place] [address] Sep, [facility] [address] [facility] [id number], [place] [address] May, [facility] [address] [id number], [place] [address] May, [facility] [address] [facility] [id number], [place] [address] Apr, [facility] [address] [place] [id number], [place] [address] Apr, [facility] [address] [facility] [id number], [place] [address] Feb, [facility] [address] [id number], [place] [address] Feb, [place] [address] [id number] Dec, [facility] [address] [facility] [id number], [place] [address] Dec, [place] [address] [id number] November, [facility] [address] [address] [id number], [place] [address] November, IMMUNIZATIONS No Known Immunizations SOCIAL HISTORY Never Assessed REASON FOR VISIT Requests return call PLAN OF CARE VITAL SIGNS MEDICATIONS Unknown Medications RESULTS No Results PROCEDURES No Known procedures INSTRUCTIONS MEDICATIONS ADMINISTERED No Known Medications MEDICAL (GENERAL) HISTORY Type Description Date Medical History borderline diabetes Medical History hyperlipidema
--- OUTSIDE RECORDS SUMMARY | 2018-12-18 17:58 | XMS REPORT ---
Author Author CALE UGALDE Organization [facility] Address [address] [place] [address] Care Team Providers Care Psychiatric Registered Nurse Name Role Phone CALE UAGLDE Unavailable PROBLEMS Type Condition ICD9-CM Code PZV42-ZD Code Onset Dates Condition Status SNOMED Code Problem Left carpal tunnel syndrome G56.02 Active 958040657330523 Problem Carpal tunnel syndrome of left wrist G56.02 Active 76966482 Problem Other chronic pain G89.29 Active 13970697 Problem Lumbago with sciatica, right side M54.41 Active 738766447 Problem Hyperlipidemia, unspecified hyperlipidemia type E78.5 Active 05324038 Problem Degenerative disc disease at L5-S1 level M51.36 Active 36771402 Problem Arthritis M19.90 Active 9219837 Problem Intention tremor G25.2 Active 83848415 ALLERGIES No Information ENCOUNTERS Encounter Location Date Diagnosis [place] [address] [address] Jan, [facility] [address] [id number] [place] [address] Jan, Skin tag L91.8 [facility] [id number] [place] [address] Jan, [facility] [id number] [place] [address] Jan, [facility] [address] [address] Jan, Acute diarrhea R19.7 [facility] [id number] [place] [address] Jan, [facility] [address] [address] Jan, Degenerative disc disease at L5-S1 level M51.36 ; Lumbago with sciatica, right side M54.41 ; Skin tag L91.8 and BMI 40.0-44.9, adult Z68.41 [facility] [id number] [place] [address] Dec, Acute diarrhea R19.7 ; Impacted cerumen of both ears H61.23 ; Systemic antibiotic causing adverse effect in therapeutic use, initial encounter T36.95XA and BMI 40.0-44.9, adult Z68.41 [facility] [id number] [place] [address] Dec, [facility] [id number] [place] [address] Dec, [facility] [id number] [place] [address] November, [facility] [id number] [place] [address] Oct, [facility] [id number] [place] [address] Oct, [facility] [id number] [place] [address] Oct, [facility] [id number] [place] [address] Oct, Lumbago with sciatica, right side M54.41 ; Degenerative disc disease at L5-S1 level M51.36 and BMI 40.0-44.9, adult Z68.41 [facility] [id number] [place] [address] Sep, Other chronic pain G89.29 [facility] [id number] [place] [address] Sep, Degenerative disc disease at L5-S1 level M51.36 [facility] [address] [place] [id number] Aug, Lumbago with sciatica, right side M54.41 ; Other chronic pain G89.29 and BMI 40.0- 44.9, adult Z68.41 [place] [id number] [place] [address] Aug, Degenerative disc disease at L5-S1 level M51.36 [place] [address] [address] Aug, Tooth abscess K04.7 [facility] [address] [address] Jul, Degenerative disc disease at L5-S1 level M51.36 [place] [address] [address] Jun, [place] [address] [address] Jun, Degenerative disc disease at L5-S1 level M51.36 [place] [address] [address] Jun, Degenerative disc disease at L5-S1 level M51.36 [place] [address] [address] May, Degenerative disc disease at L5-S1 level M51.36 [place] [id number] [place] [address] Apr, Degenerative disc disease at L5-S1 level M51.36 ; Arthritis M19.90 and Intention tremor G25.2 [facility] [address] [id number] [place] [address] Apr, Degenerative disc disease at L5-S1 level M51.36 [facility] [address] [id number] [place] [address] Mar, [place] [id number] [place] [address] Mar, [place] [address] [address] Mar, Degenerative disc disease at L5-S1 level M51.36 [facility] [id number] [address] Feb, [facility] [address] [address] Feb, Degenerative disc disease at L5-S1 level M51.36 [facility] [id number] [address] Feb, [facility] [id number] [place] [address] Jan, [facility] [address] [id number] [address] Jan, Hyperlipidemia, unspecified hyperlipidemia type E78.5 ; Degenerative disc disease at L5-S1 level M51.36 ; Right hip pain M25.551 ; Piriformis syndrome, right G57.01 and Pre-diabetes R73.03 [facility] [id number] [address] Jan, Degenerative disc disease at L5-S1 level M51.36 [facility] [address], [place] [address] Jan, [facility] [address], [place] [address] Dec, Degenerative disc disease at L5-S1 level M51.36 ; Right hip pain M25.551 and Piriformis syndrome, right G57.01 [facility] [address] [address] Dec, [facility] [address], [place] [address] Dec, [facility] [address] [address] Dec, Degenerative disc disease at L5-S1 level M51.36 [facility] [address] [address] November, [facility] [address] [address] November, Right hip pain M25.551 and Hyperlipidemia, unspecified hyperlipidemia type E78.5 [place] [address] [address] Aug, Acute right-sided low back pain without sciatica M54.5 and Oral lesion K13.70 [place] [address] [address] Jul, Left carpal tunnel syndrome G56.02 [place] [address] [address] Jun, [facility] [address] [address] May, Abscess L02.91 and Cough R05 [facility] [address] [address] May, [facility] [address] [address] May, [facility] [id number] [place] [address] May, [facility] [address] [address] May, Carpal tunnel syndrome of left wrist G56.02 [facility] [address] [address] Apr, [facility] [address] [address] Apr, Acute non-recurrent maxillary sinusitis J01.00 [facility] [address] [address] Oct, [facility] [address] [facility] [id number] [address] Oct, [facility] [address] [place] [id number] Sep, [facility] [address] [facility] [id number], [place] [address] Sep, [place] [address] [place] [id number] Sep, [facility] [address] [facility] [id number] [address] Sep, [facility] [address] [facility] [id number] [address] May, [facility] [address] [facility] [id number], [place] [address] May, [facility] [address] [facility] [id number][place] [address] Apr, [facility] [address] [facility] [id number][place] [address] Apr, [facility] [address] [facility] [id number][place] [address] Feb, [facility] [address] [facility] [id number] [address] Feb, [facility] [address] [id number] Dec, [facility] [address] [facility] [id number][place] [address] Dec, [place] [address] [place] [id number] November, [facility] [address] [facility] [id number][place] [address] November, IMMUNIZATIONS No Known Immunizations SOCIAL HISTORY Never Assessed REASON FOR VISIT Requests return call PLAN OF CARE VITAL SIGNS MEDICATIONS Unknown Medications RESULTS No Results PROCEDURES No Known procedures INSTRUCTIONS MEDICATIONS ADMINISTERED No Known Medications MEDICAL (GENERAL) HISTORY Type Description Date Medical History borderline diabetes Medical History hyperlipidema
--- OUTSIDE RECORDS SUMMARY | 2018-12-18 17:59 | XMS REPORT ---
Author Author CALE UGALDE Organization [facility] Address [address] [place] [address] Care Team Providers Care Integrated Logistics Programs Director Name Role Phone CALE UGALDE Unavailable PROBLEMS Type Condition ICD9-CM Code JZO62-LQ Code Onset Dates Condition Status SNOMED Code Problem Left carpal tunnel syndrome G56.02 Active 671188143574961 Problem Carpal tunnel syndrome of left wrist G56.02 Active 64239612 Problem Other chronic pain G89.29 Active 10222883 Problem Lumbago with sciatica, right side M54.41 Active 758586176 Problem Hyperlipidemia, unspecified hyperlipidemia type E78.5 Active 41519859 Problem Degenerative disc disease at L5-S1 level M51.36 Active 58692515 Problem Arthritis M19.90 Active 3238246 Problem Intention tremor G25.2 Active 86830755 ALLERGIES No Information ENCOUNTERS Encounter Location Date Diagnosis [place] [address] [address] Jan, [facility] [id number] [place] [address] Jan, Skin tag L91.8 [facility] [address] [place] [id number] [place] [address] Jan, [facility] [id number] [place] [address] Jan, [facility] [address] [address] Jan, Acute diarrhea R19.7 [facility] [id number] [place] [address] Jan, [facility] [address] [address] Jan, Degenerative disc disease at L5-S1 level M51.36 ; Lumbago with sciatica, right side M54.41 ; Skin tag L91.8 and BMI 40.0-44.9, adult Z68.41 [facility] [id number] [place] [address] Dec, Acute diarrhea R19.7 ; Impacted cerumen of both ears H61.23 ; Systemic antibiotic causing adverse effect in therapeutic use, initial encounter T36.95XA and BMI 40.0-44.9, adult Z68.41 [facility] [id number] [place] [address] Dec, [facility] [id number] [place] [address] Dec, [facility] [id number] [place] [address] November, [facility] [id number] [place] [address] Oct, [facility] [id number] [place] [address] Oct, [facility] [id number] [place] [address] Oct, [facility] [id number] [place] [address] Oct, Lumbago with sciatica, right side M54.41 ; Degenerative disc disease at L5-S1 level M51.36 and BMI 40.0-44.9, adult Z68.41 [facility] [id number] [place] [address] Sep, Other chronic pain G89.29 [facility] [id number] [place] [address] Sep, Degenerative disc disease at L5-S1 level M51.36 [facility] [address] [place] [id number] Aug, Lumbago with sciatica, right side M54.41 ; Other chronic pain G89.29 and BMI 40.0- 44.9, adult Z68.41 [place] [id number] [place] [address] Aug, Degenerative disc disease at L5-S1 level M51.36 [place] [address] [address] Aug, Tooth abscess K04.7 [facility] [address] [address] Jul, Degenerative disc disease at L5-S1 level M51.36 [place] [address] [address] Jun, [place] [address] [address] Jun, Degenerative disc disease at L5-S1 level M51.36 [place] [address] [address] Jun, Degenerative disc disease at L5-S1 level M51.36 [place] [address] [address] May, Degenerative disc disease at L5-S1 level M51.36 [place] [id number] [place] [address] Apr, Degenerative disc disease at L5-S1 level M51.36 ; Arthritis M19.90 and Intention tremor G25.2 [facility] [address] [place] [id number] [place] [address] Apr, Degenerative disc disease at L5-S1 level M51.36 [facility] [id number] [place] [address] Mar, [place] [id number] [place] [address] Mar, [place] [address] [address] Mar, Degenerative disc disease at L5-S1 level M51.36 [facility] [address] [place] [id number] [address] Feb, [facility] [address] [address] Feb, Degenerative disc disease at L5-S1 level M51.36 [facility] [address] [place] [id number] [address] Feb, [facility] [id number] [place] [address] Jan, [facility] [id number] [address] Jan, Hyperlipidemia, unspecified hyperlipidemia type E78.5 ; Degenerative disc disease at L5-S1 level M51.36 ; Right hip pain M25.551 ; Piriformis syndrome, right G57.01 and Pre-diabetes R73.03 [facility] [address] [place] [id number] [address] Jan, Degenerative disc disease at L5-S1 level M51.36 [facility] [address] [address] Jan, [facility] [address] [address] Dec, Degenerative disc disease at L5-S1 level M51.36 ; Right hip pain M25.551 and Piriformis syndrome, right G57.01 [facility] [address] [address] Dec, [facility] [address] [address] Dec, [facility] [address] [address] Dec, Degenerative disc disease at L5-S1 level M51.36 [facility] [address] [address] November, [facility] [address] [address] November, Right hip pain M25.551 and Hyperlipidemia, unspecified hyperlipidemia type E78.5 [place] [address] [address] Aug, Acute right-sided low back pain without sciatica M54.5 and Oral lesion K13.70 [place] [address] [address] Jul, Left carpal tunnel syndrome G56.02 [place] [address] [address] Jun, [facility] [address] [address] May, Abscess L02.91 and Cough R05 [facility] [address] [address] May, [facility] [address] [address] May, [facility] [id number] [place] [address] May, [facility] [address] [address] May, Carpal tunnel syndrome of left wrist G56.02 [facility] [address] [address] Apr, [facility] [address] [address] Apr, Acute non-recurrent maxillary sinusitis J01.00 [facility] [address] [address] Oct, [facility] [address] [facility] [id number] [address] Oct, [facility] [address] [place] [id number] Sep, [facility] [address] [facility] [id number] [address] Sep, [place] [address] [address] Sep, [facility] [address] [facility] [id number] [place] [address] Sep, [facility] [address] [facility] [id number] [address] May, [facility] [address] [facility] [id number] [place] [address] May, [facility] [address] [facility] [id number] [place] [address] Apr, [facility] [address] [facility] [id number] [place] [address] Apr, [facility] [address] [facility] [id number] [place] [address] Feb, [facility] [address] [facility] [id number] [place] [address] Feb, [facility] [address] [place] [id number] Dec, [facility] [address] [facility] [id number] [place] [address] Dec, [place] [address] [place] [place] [id number] November, [facility] [address] [place] [id number] [address] November, IMMUNIZATIONS No Known Immunizations SOCIAL HISTORY Never Assessed REASON FOR VISIT Medication refill request PLAN OF CARE VITAL SIGNS MEDICATIONS Unknown Medications RESULTS No Results PROCEDURES No Known procedures INSTRUCTIONS MEDICATIONS ADMINISTERED No Known Medications MEDICAL (GENERAL) HISTORY Type Description Date Medical History borderline diabetes Medical History hyperlipidema
--- OUTSIDE RECORDS SUMMARY | 2018-12-18 17:59 | XMS REPORT ---
Author Author CALE UGALDE Organization [facility] Address [address] [place] [address] Care Team Providers Care Racing Mechanic Name Role Phone CALE UGALDE Unavailable PROBLEMS Type Condition ICD9-CM Code QFI80-KA Code Onset Dates Condition Status SNOMED Code Problem Left carpal tunnel syndrome G56.02 Active 121457220566072 Problem Carpal tunnel syndrome of left wrist G56.02 Active 41048055 Problem Other chronic pain G89.29 Active 41188439 Problem Lumbago with sciatica, right side M54.41 Active 205034313 Problem Hyperlipidemia, unspecified hyperlipidemia type E78.5 Active 66061890 Problem Degenerative disc disease at L5-S1 level M51.36 Active 75632898 Problem Arthritis M19.90 Active 5537637 Problem Intention tremor G25.2 Active 13543089 ALLERGIES No Information ENCOUNTERS Encounter Location Date Diagnosis [place] [address] [address] Jan, [facility] [address] [place] [id number] [place] [address] Jan, Skin tag L91.8 [facility] [address] [place] [id number] [place] [address] Jan, [facility] [address] [place] [id number] [place] [address] Jan, [facility] [address] [address] Jan, Acute diarrhea R19.7 [facility] [address] [place] [id number] [place] [address] Jan, [facility] [address] [address] Jan, Degenerative disc disease at L5-S1 level M51.36 ; Lumbago with sciatica, right side M54.41 ; Skin tag L91.8 and BMI 40.0-44.9, adult Z68.41 [facility] [address] [place] [id number] [place] [address] Dec, Acute diarrhea R19.7 ; Impacted cerumen of both ears H61.23 ; Systemic antibiotic causing adverse effect in therapeutic use, initial encounter T36.95XA and BMI 40.0-44.9, adult Z68.41 [facility] [address] [place] [id number] [place] [address] Dec, [facility] [address] [place] [id number] [place] [address] Dec, [facility] [address] [place] [id number] [place] [address] November, [facility] [address] [place] [id number] [place] [address] Oct, [facility] [address] [place] [id number] [place] [address] Oct, [facility] [address] [place] [id number] [place] [address] Oct, [facility] [address] [place] [id number] [place] [address] Oct, Lumbago with sciatica, right side M54.41 ; Degenerative disc disease at L5-S1 level M51.36 and BMI 40.0-44.9, adult Z68.41 [facility] [address] [place] [id number] [place] [address] Sep, Other chronic pain G89.29 [facility] [address] [place] [id number] [place] [address] Sep, Degenerative disc disease at L5-S1 level M51.36 [facility] [address] [place] [id number] Aug, Lumbago with sciatica, right side M54.41 ; Other chronic pain G89.29 and BMI 40.0- 44.9, adult Z68.41 [place] [address] [place] [id number] [place] [address] Aug, Degenerative disc disease at L5-S1 level M51.36 [place] [address] [address] Aug, Tooth abscess K04.7 [facility] [address] [address] Jul, Degenerative disc disease at L5-S1 level M51.36 [place] [address] [address] Jun, [place] [address] [address] Jun, Degenerative disc disease at L5-S1 level M51.36 [place] [address] [address] Jun, Degenerative disc disease at L5-S1 level M51.36 [place] [address] [address] May, Degenerative disc disease at L5-S1 level M51.36 [place] [address] [place] [id number] [place] [address] Apr, Degenerative disc disease at L5-S1 level M51.36 ; Arthritis M19.90 and Intention tremor G25.2 [facility] [address] [place] [id number] [place] [address] Apr, Degenerative disc disease at L5-S1 level M51.36 [facility] [address] [place] [id number] [place] [address] Mar, [place] [address] [place] [id number] [place] [address] Mar, [place] [address] [address] Mar, Degenerative disc disease at L5-S1 level M51.36 [facility] [address] [place] [id number] [address] Feb, [facility] [address], [place] [address] Feb, Degenerative disc disease at L5-S1 level M51.36 [facility] [address] [place] [id number] [address] Feb, [facility] [address] [place] [id number] [place] [address] Jan, [facility] [address] [place] [id number] [address] Jan, Hyperlipidemia, unspecified hyperlipidemia type E78.5 ; Degenerative disc disease at L5-S1 level M51.36 ; Right hip pain M25.551 ; Piriformis syndrome, right G57.01 and Pre-diabetes R73.03 [facility] [address] [place] [address] [address] Jan, Degenerative disc disease at L5-S1 level M51.36 [facility] [address], [place] [address] Jan, [facility] [address] [address] Dec, Degenerative disc disease at L5-S1 level M51.36 ; Right hip pain M25.551 and Piriformis syndrome, right G57.01 [facility] [address], [place] [address] Dec, [facility] [address] [address] Dec, [facility] [address], [place] [address] Dec, Degenerative disc disease at L5-S1 level M51.36 [facility] [address] [address] November, [facility] [address] [address] November, Right hip pain M25.551 and Hyperlipidemia, unspecified hyperlipidemia type E78.5 [place] [address] [address] Aug, Acute right-sided low back pain without sciatica M54.5 and Oral lesion K13.70 [place] [address] [address] Jul, Left carpal tunnel syndrome G56.02 [place] [address] [address] Jun, [facility] [address] [address] May, Abscess L02.91 and Cough R05 [facility] [address] [address] May, [facility] [address] [address] May, [facility] [address] [place] [id number] [place] [address] May, [facility] [address] [address] May, Carpal tunnel syndrome of left wrist G56.02 [facility] [address] [address] Apr, [facility] [address] [address] Apr, Acute non-recurrent maxillary sinusitis J01.00 [facility] [address] [address] Oct, [facility] [address] [facility] [id number], [place] [address] Oct, [facility] [address] [place] [id number] Sep, [facility] [address] [facility] [id number], [place] [address] Sep, [place] [address] [place] [id number] Sep, [facility] [address] [facility] [id number], [place] [address] Sep, [facility] [address] [facility] [id number], [place] [address] May, [facility] [address] [facility] [id number], [place] [address] May, [facility] [address] [facility] [id number], [place] [address] Apr, [facility] [address] [facility] [id number], [place] [address] Apr, [facility] [address] [facility] [id number], [place] [address] Feb, [facility] [address] [facility] [id number], [place] [address] Feb, [place] [address] [place] [id number] Dec, [facility] [address] [facility] [id number], [place] [address] Dec, [place] [address] [place] [id number] November, [facility] [address] [facility] [id number], [place] [address] November, IMMUNIZATIONS No Known Immunizations SOCIAL HISTORY Never Assessed REASON FOR VISIT Pain medication PLAN OF CARE VITAL SIGNS MEDICATIONS Unknown Medications RESULTS No Results PROCEDURES No Known procedures INSTRUCTIONS MEDICATIONS ADMINISTERED No Known Medications MEDICAL (GENERAL) HISTORY Type Description Date Medical History borderline diabetes Medical History hyperlipidema
--- OUTSIDE RECORDS SUMMARY | 2018-12-18 17:59 | XMS REPORT ---
Author Author CALE UGALDE Organization [facility] Address [address] [place] [address] Care Team Providers Care Special Education Science Teacher Name Role Phone CALE UGALDE Unavailable PROBLEMS Type Condition ICD9-CM Code QOW95-MN Code Onset Dates Condition Status SNOMED Code Problem Left carpal tunnel syndrome G56.02 Active [id number] Problem Carpal tunnel syndrome of left wrist G56.02 Active 15520022 Problem Other chronic pain G89.29 Active 37126911 Problem Lumbago with sciatica, right side M54.41 Active 888257369 Problem Hyperlipidemia, unspecified hyperlipidemia type E78.5 Active 40754377 Problem Degenerative disc disease at L5-S1 level M51.36 Active 76843848 Problem Arthritis M19.90 Active 1914773 Problem Intention tremor G25.2 Active 99156174 ALLERGIES No Information ENCOUNTERS Encounter Location Date Diagnosis [place] [address] [address] Jan, [facility] [address] [place] [id number] [place] [address] Jan, Skin tag L91.8 [facility] [address] [place] [id number] [place] [address] Jan, [facility] [address] [place] [id number] [place] [address] Jan, [facility] [address] [address] Jan, Acute diarrhea R19.7 [facility] [address] [place] [id number] [place] [address] Jan, [facility] [address] [address] Jan, Degenerative disc disease at L5-S1 level M51.36 ; Lumbago with sciatica, right side M54.41 ; Skin tag L91.8 and BMI 40.0-44.9, adult Z68.41 [facility] [address] [place] [id number] [place] [address] Dec, Acute diarrhea R19.7 ; Impacted cerumen of both ears H61.23 ; Systemic antibiotic causing adverse effect in therapeutic use, initial encounter T36.95XA and BMI 40.0-44.9, adult Z68.41 [facility] [address] [place] [id number] [place] [address] Dec, [facility] [address] [place] [id number] [place] [address] Dec, [facility] [address] [place] [id number] [place] [address] November, [facility] [address] [place] [id number] [place] [address] Oct, [facility] [address] [place] [id number] [place] [address] Oct, [facility] [address] [place] [id number] [place] [address] Oct, [facility] [address] [place] [id number] [place] [address] Oct, Lumbago with sciatica, right side M54.41 ; Degenerative disc disease at L5-S1 level M51.36 and BMI 40.0-44.9, adult Z68.41 [facility] [address] [place] [id number] [place] [address] Sep, Other chronic pain G89.29 [facility] [address] [place] [id number] [place] [address] Sep, Degenerative disc disease at L5-S1 level M51.36 [facility] [address] [place] [id number] Aug, Lumbago with sciatica, right side M54.41 ; Other chronic pain G89.29 and BMI 40.0- 44.9, adult Z68.41 [place] [address] [place] [id number] [place] [address] Aug, Degenerative disc disease at L5-S1 level M51.36 [place] [address] [address] Aug, Tooth abscess K04.7 [facility] [address] [address] Jul, Degenerative disc disease at L5-S1 level M51.36 [place] [address] [address] Jun, [place] [address] [address] Jun, Degenerative disc disease at L5-S1 level M51.36 [place] [address] [address] Jun, Degenerative disc disease at L5-S1 level M51.36 [place] [address] [address] May, Degenerative disc disease at L5-S1 level M51.36 [place] [address] [place] [id number] [place] [address] Apr, Degenerative disc disease at L5-S1 level M51.36 ; Arthritis M19.90 and Intention tremor G25.2 [facility] [address] [place] [id number] [place] [address] Apr, Degenerative disc disease at L5-S1 level M51.36 [facility] [address] [place] [id number] [place] [address] Mar, [place] [address] [place] [id number] [place] [address] Mar, [place] [address], [place] [address] Mar, Degenerative disc disease at L5-S1 level M51.36 [facility] [address] [id number], [place] [address] Feb, [facility] [address], [place] [address] Feb, Degenerative disc disease at L5-S1 level M51.36 [facility] [address] [id number], [place] [address] Feb, [facility] [address] [place] [id number] [place] [address] Jan, [facility] [address] [id number], [place] [address] Jan, Hyperlipidemia, unspecified hyperlipidemia type E78.5 ; Degenerative disc disease at L5-S1 level M51.36 ; Right hip pain M25.551 ; Piriformis syndrome, right G57.01 and Pre-diabetes R73.03 [facility] [address] [place] [id number], [place] [address] Jan, Degenerative disc disease at L5-S1 level M51.36 [facility] [address], [place] [address] Jan, [facility] [address], [place] [address] Dec, Degenerative disc disease at L5-S1 level M51.36 ; Right hip pain M25.551 and Piriformis syndrome, right G57.01 [facility] [address], [place] [address] Dec, [facility] [address], [place] [address] Dec, [facility] [address], [place] [address] Dec, Degenerative disc disease at L5-S1 level M51.36 [facility] [address] [address] November, [facility] [address] [address] November, Right hip pain M25.551 and Hyperlipidemia, unspecified hyperlipidemia type E78.5 [place] [address] [address] Aug, Acute right-sided low back pain without sciatica M54.5 and Oral lesion K13.70 [place] [address] [address] Jul, Left carpal tunnel syndrome G56.02 [place] [address] [address] Jun, [facility] [address] [address] May, Abscess L02.91 and Cough R05 [facility] [address] [address] May, [facility] [address] [address] May, [facility] [address] [place] [id number] [place] [address] May, [facility] [address] [address] May, Carpal tunnel syndrome of left wrist G56.02 [facility] [address] [address] Apr, [facility] [address] [address] Apr, Acute non-recurrent maxillary sinusitis J01.00 [facility] [address] [address] Oct, [facility] [address] [facility] [id number], [place] [address] Oct, [facility] [address] [place] [id number] Sep, [facility] [address] [facility] [id number], [place] [address] Sep, [facility] [address] [place] [id number] Sep, [facility] [address] [facility] [id number], [place] [address] Sep, [facility] [address] [facility] [id number], [place] [address] May, [facility] [address] [facility] [id number], [place] [address] May, [facility] [address] [facility] [id number], [place] [address] Apr, [facility] [address] [facility] [id number], [place] [address] Apr, [facility] [address] [facility] [id number], [place] [address] Feb, [facility] [address] [facility] [id number], [place] [address] Feb, [facility] [address] [place] [id number] Dec, [facility] [address] [facility] [id number], [place] [address] Dec, [facility] [address] [place] [address] November, [facility] [address] [facility] [id number], [place] [address] November, IMMUNIZATIONS No Known Immunizations SOCIAL HISTORY Never Assessed REASON FOR VISIT Medication refill request PLAN OF CARE VITAL SIGNS MEDICATIONS Medication Instructions Dosage Frequency Start Date End Date Duration Status Ibuprofen 800 MG Orally Three times a day 1 tablet with food or milk as needed 8h 30 days Active RESULTS No Results PROCEDURES No Known procedures INSTRUCTIONS MEDICATIONS ADMINISTERED No Known Medications MEDICAL (GENERAL) HISTORY Type Description Date Medical History borderline diabetes Medical History hyperlipidema
--- OUTSIDE RECORDS SUMMARY | 2018-12-18 17:59 | XMS REPORT ---
Author Author CALE UGALDE Organization [facility] Address [address] [place] [address] Care Team Providers Care Associate Automation Engineer Name Role Phone CALE UGALDE Unavailable PROBLEMS Type Condition ICD9-CM Code YEA56-DD Code Onset Dates Condition Status SNOMED Code Problem Left carpal tunnel syndrome G56.02 Active 287152082655761 Problem Carpal tunnel syndrome of left wrist G56.02 Active 22647551 Problem Other chronic pain G89.29 Active 74671463 Problem Lumbago with sciatica, right side M54.41 Active 484385122 Problem Hyperlipidemia, unspecified hyperlipidemia type E78.5 Active 98520869 Problem Degenerative disc disease at L5-S1 level M51.36 Active 61267106 Problem Arthritis M19.90 Active 2497450 Problem Intention tremor G25.2 Active 93708452 ALLERGIES No Known Allergies ENCOUNTERS Encounter Location Date Diagnosis [place] [address] [address] Jan, [facility] [address] [place] [id number] [place] [address] Jan, Skin tag L91.8 [facility] [address] [place] [id number] [place] [address] Jan, [facility] [address] [id number] [place] [address] Jan, [facility] [address] [address] Jan, Acute diarrhea R19.7 [facility] [address] [place] [id number] [place] [address] Jan, [facility] [address] [address] Jan, Degenerative disc disease at L5-S1 level M51.36 ; Lumbago with sciatica, right side M54.41 ; Skin tag L91.8 and BMI 40.0-44.9, adult Z68.41 [facility] [address] [place] [address] Dec, Acute diarrhea R19.7 ; Impacted cerumen of both ears H61.23 ; Systemic antibiotic causing adverse effect in therapeutic use, initial encounter T36.95XA and BMI 40.0-44.9, adult Z68.41 [facility] [address] [place] [place] [id number] [place] [address] Dec, [facility] [address] [place] [id number] [place] [address] Dec, [facility] [address] [id number] [place] [address] November, [facility] [address] [id number] [place] [address] Oct, [facility] [address] [id number] [place] [address] Oct, [facility] [address] [id number] [place] [address] Oct, [facility] [address] [place] [id number] [place] [address] Oct, Lumbago with sciatica, right side M54.41 ; Degenerative disc disease at L5-S1 level M51.36 and BMI 40.0-44.9, adult Z68.41 [facility] [address] [place] [id number] [place] [address] Sep, Other chronic pain G89.29 [facility] [address] [place] [id number] [place] [address] Sep, Degenerative disc disease at L5-S1 level M51.36 [facility] [address] [place] [id number] Aug, Lumbago with sciatica, right side M54.41 ; Other chronic pain G89.29 and BMI 40.0- 44.9, adult Z68.41 [facility] [address] [place] [id number] [place] [address] Aug, Degenerative disc disease at L5-S1 level M51.36 [facility] [address] [place] [id number] [place] [address] Aug, Tooth abscess K04.7 [facility] [address] [address] Jul, Degenerative disc disease at L5-S1 level M51.36 [place] [address] [place] [id number] [place] [address] Jun, [place] [address] [address] Jun, Degenerative disc disease at L5-S1 level M51.36 [place] [address] [address] Jun, Degenerative disc disease at L5-S1 level M51.36 [place] [address] [place] [id number] [place] [address] May, Degenerative disc disease at L5-S1 level M51.36 [place] [address] [place] [id number] [place] [address] Apr, Degenerative disc disease at L5-S1 level M51.36 ; Arthritis M19.90 and Intention tremor G25.2 [facility] [address] [place] [id number] [place] [address] Apr, Degenerative disc disease at L5-S1 level M51.36 [facility] [address] [place] [id number] [place] [address] Mar, [facility] [address] [place] [id number] [place] [address] Mar, [facility] [address] [address] Mar, Degenerative disc disease at L5-S1 level M51.36 [facility] [address], [place] [address] Feb, [facility] [address] [address] Feb, Degenerative disc disease at L5-S1 level M51.36 [facility] [address] [address] Feb, [facility] [address] [place] [id number] [address] Jan, [facility] [address] [place] [id number] [address] Jan, Hyperlipidemia, unspecified hyperlipidemia type E78.5 ; Degenerative disc disease at L5-S1 level M51.36 ; Right hip pain M25.551 ; Piriformis syndrome, right G57.01 and Pre-diabetes R73.03 [facility] [address] [address] Jan, Degenerative disc disease at L5-S1 level M51.36 [facility] [address], [place] [address] Jan, [facility] [address] [address] Dec, Degenerative disc disease at L5-S1 level M51.36 ; Right hip pain M25.551 and Piriformis syndrome, right G57.01 [facility] [address] [address] Dec, [facility] [address] [address] Dec, [facility] [address], [place] [address] Dec, Degenerative disc disease at L5-S1 level M51.36 [facility] [address] [address] November, [facility] [address] [address] November, Right hip pain M25.551 and Hyperlipidemia, unspecified hyperlipidemia type E78.5 [place] [address] [address] Aug, Acute right-sided low back pain without sciatica M54.5 and Oral lesion K13.70 [place] [address] [address] Jul, Left carpal tunnel syndrome G56.02 [place] [address] [address] Jun, [facility] [address] [address] May, Abscess L02.91 and Cough R05 [facility] [address] [address] May, [facility] [address] [address] May, [facility] [address] [address] May, [facility] [address] [address] May, Carpal tunnel syndrome of left wrist G56.02 [facility] [address] [address] Apr, [facility] [address] [address] 07 Apr, 2016 Acute non-recurrent maxillary sinusitis J01.00 [facility] [address] [address] Oct, [facility] [address] [facility] [id number] [address] Oct, [facility] [address] [id number] Sep, [facility] [address] [facility] [id number], [place] [address] Sep, [facility] [address] [place] [id number] Sep, [facility] [address] [id number] [place] [address] Sep, [facility] [address] [id number] [place] [address] May, [facility] [address] [facility] [id number] [place] [address] May, [facility] [address] [facility] [id number], [place] [address] Apr, [facility] [address] [facility] [id number], [place] [address] Apr, [facility] [address] [facility] [id number], [place] [address] Feb, [facility] [address] [facility] [id number], [place] [address] Feb, [facility] [address] [place] [id number] Dec, [facility] [address] [facility] [id number], [place] [address] Dec, [facility] [address] [place] [id number] November, [facility] [address] [facility] [id number], [place] [address] November, IMMUNIZATIONS No Known Immunizations SOCIAL HISTORY Never Assessed REASON FOR VISIT Pain management (chronic)-MICHELLE devi PLAN OF CARE Activity Details Follow Up 4 Months Reason: VITAL SIGNS Height 68 in 2018-01-22 Weight 273.1 lbs 2018-01-22 Temperature 97.8 degrees Fahrenheit 2018-01-22 Heart Rate 80 bpm 2018-01-22 Respiratory Rate 20 2018-01-22 BMI 41.52 kg/m2 2018-01-22 Blood pressure systolic 130 mmHg 2018-01-22 Blood pressure diastolic 84 mmHg 2018-01-22 MEDICATIONS Medication Instructions Dosage Frequency Start Date End Date Duration Status Ibuprofen 800 MG Orally Three times a day 1 tablet with food or milk as needed 8h Active Lyrica 100 MG Orally Twice a day 1 capsule 12h Active Lopid 600 MG Orally Twice a day 1 tablet 12h Active RESULTS No Results PROCEDURES No Known procedures INSTRUCTIONS MEDICATIONS ADMINISTERED No Known Medications MEDICAL (GENERAL) HISTORY Type Description Date Medical History borderline diabetes Medical History hyperlipidema
--- OUTSIDE RECORDS SUMMARY | 2018-12-18 17:59 | XMS REPORT ---
Author Author LOUIS ALSTON Organization [facility] Address [address] [place] [address] Care Team Providers Care Environmental Services Tech Name Role Phone LOUIS ALSTON Unavailable PROBLEMS Type Condition ICD9-CM Code DTA08-EI Code Onset Dates Condition Status SNOMED Code Problem Left carpal tunnel syndrome G56.02 Active 841334559547661 Problem Carpal tunnel syndrome of left wrist G56.02 Active 33430545 Problem Other chronic pain G89.29 Active 26949067 Problem Lumbago with sciatica, right side M54.41 Active 054606958 Problem Hyperlipidemia, unspecified hyperlipidemia type E78.5 Active 41559344 Problem Degenerative disc disease at L5-S1 level M51.36 Active 64247689 Problem Arthritis M19.90 Active 0256336 Problem Intention tremor G25.2 Active 28425016 ALLERGIES No Known Allergies ENCOUNTERS Encounter Location Date Diagnosis [place] [id number] [address] Jan, [facility] [address] [place] [id number] [place] [address] Jan, Skin tag L91.8 [facility] [address] [place] [id number] [place] [address] Jan, [facility] [address] [place] [id number] [place] [address] Jan, [facility] [address] [address] Jan, Acute diarrhea R19.7 [facility] [address] [place] [id number] [place] [address] Jan, [facility] [address] [address] Jan, Degenerative disc disease at L5-S1 level M51.36 ; Lumbago with sciatica, right side M54.41 ; Skin tag L91.8 and BMI 40.0-44.9, adult Z68.41 [facility] [address] [place] [id number] [place] [address] Dec, Acute diarrhea R19.7 ; Impacted cerumen of both ears H61.23 ; Systemic antibiotic causing adverse effect in therapeutic use, initial encounter T36.95XA and BMI 40.0-44.9, [address]68[address]41 [facility] [address] [place] [id number] [place] [address] Dec, [facility] [address] [place] [id number] [place] [address] Dec, [facility] [address] [place] [id number] [place] [address] November, [facility] [address] [place] [id number] [place] [address] Oct, [facility] [address] [place] [id number] [place] [address] Oct, [facility] [address] [place] [id number] [place] [address] Oct, [facility] [address] [place] [id number] [place] [address] Oct, Lumbago with sciatica, right side M54.41 ; Degenerative disc disease at L5-S1 level M51.36 and BMI 40.0-44.9, adult Z68.41 [facility] [address] [place] [id number] [place] [address] Sep, Other chronic pain G89.29 [facility] [address] [place] [id number] [place] [address] Sep, Degenerative disc disease at L5-S1 level M51.36 [facility] [address] [place] [id number] Aug, Lumbago with sciatica, right side M54.41 ; Other chronic pain G89.29 and BMI 40.0- 44.9, adult Z68.41 [place] [address] [place] [id number] [place] [address] Aug, Degenerative disc disease at L5-S1 level M51.36 [place] [address] [address] Aug, Tooth abscess K04.7 [facility] [address] [address] Jul, Degenerative disc disease at L5-S1 level M51.36 [place] [address] [address] Jun, [place] [address] [address] Jun, Degenerative disc disease at L5-S1 level M51.36 [place] [address] [address] Jun, Degenerative disc disease at L5-S1 level M51.36 [place] [address] [address] May, Degenerative disc disease at L5-S1 level M51.36 [place] [address] [place] [id number] [place] [address] Apr, Degenerative disc disease at L5-S1 level M51.36 ; Arthritis M19.90 and Intention tremor G25.2 [facility] [address] [place] [id number] [place] [address] Apr, Degenerative disc disease at L5-S1 level M51.36 [facility] [address] [place] [id number] [place] [address] Mar, [place] [address] [place] [id number] [place] [address] Mar, [place] [address], [place] [address] Mar, Degenerative disc disease at L5-S1 level M51.36 [facility] [address] [place] [id number], [place] [address] Feb, [facility] [address], [place] [address] Feb, Degenerative disc disease at L5-S1 level M51.36 [facility] [address] [place] [id number], [place] [address] Feb, [facility] [address] [place] [id number] [place] [address] Jan, [facility] [address] [place] [id number], [place] [address] Jan, Hyperlipidemia, unspecified hyperlipidemia type E78.5 ; Degenerative disc disease at L5-S1 level M51.36 ; Right hip pain M25.551 ; Piriformis syndrome, right G57.01 and Pre-diabetes R73.03 [facility] [address] [place] [id number], [place] [address] Jan, Degenerative disc disease at L5-S1 level M51.36 [facility] [address], [place] [address] Jan, [facility] [address], [place] [address] Dec, Degenerative disc disease at L5-S1 level M51.36 ; Right hip pain M25.551 and Piriformis syndrome, right G57.01 [facility] [address], [place] [address] Dec, [facility] [address], [place] [address] Dec, [facility] [address], [place] [address] Dec, Degenerative disc disease at L5-S1 level M51.36 [facility] [address] [address] November, [facility] [address] [address] November, Right hip pain M25.551 and Hyperlipidemia, unspecified hyperlipidemia type E78.5 [place] [address] [address] Aug, Acute right-sided low back pain without sciatica M54.5 and Oral lesion K13.70 [place] [address] [address] Jul, Left carpal tunnel syndrome G56.02 [place] [address] [address] Jun, [facility] [address] [address] May, Abscess L02.[address] [facility] [address] [address] May, [facility] [address] [address] May, [facility] [address] [place] [id number] [place] [address] May, [facility] [address] [address] May, Carpal tunnel syndrome of left wrist G56.02 [facility] [address] [address] Apr, [facility] [address] [address] Apr, Acute non-recurrent maxillary sinusitis J01.00 [facility] [address] [address] Oct, [facility] [address] [facility] [id number], [place] [address] Oct, [facility] [address] [id number] Sep, [facility] [address] [facility] [id number], [place] [address] Sep, [place] [address] [place] [id number] Sep, [facility] [address] [facility] [id number] [place] [address] Sep, [facility] [address] [facility] [id number] [place] [address] May, [facility] [address] [facility] [id number] [place] [address] May, [facility] [address] [facility] [id number], [place] [address] Apr, [facility] [address] [facility] [id number], [place] [address] Apr, [facility] [address] [facility] [id number], [place] [address] Feb, [facility] [address] [facility] [id number], [place] [address] Feb, [place] [address] [place] [id number] Dec, [facility] [address] [facility] [id number], [place] [address] Dec, [place] [address] [place] [id number] November, [facility] [address] [facility] [id number], [place] [address] November, IMMUNIZATIONS No Known Immunizations SOCIAL HISTORY Never Assessed REASON FOR VISIT Diarrhea, PT reports he has had diarrhea the last two weeks. PT notes his appeti te has decreased, and urination is not as consistant. -Joseph MARTINEZ , PT reports headaches behind his eyes the last month -Joseph MARTINEZ PLAN OF CARE Activity Details Follow Up prn Reason:lab/diarrhea Future/Pending Procedure EAR LAVAGE VITAL SIGNS Height 68 in 2018-01-17 Weight 277.4 lbs 2018-01-17 Temperature 98.3 degrees Fahrenheit 2018-01-17 Heart Rate 73 bpm 2018-01-17 Respiratory Rate 20 2018-01-17 Oximetry on room air:98 % 2018-01-17 BMI 42.17 kg/m2 2018-01-17 Blood pressure systolic 140 mmHg 2018-01-17 Blood pressure diastolic 90 mmHg 2018-01-17 MEDICATIONS Medication Instructions Dosage Frequency Start Date End Date Duration Status Ibuprofen 800 MG Orally Three times a day 1 tablet with food or milk as needed 8h Active Lopid 600 MG Orally Twice a day 1 tablet 12h Active Gabapentin 100 MG Orally Three times a day 1 capsule 8h Aug, 30 day(s) Not-Taking Gabapentin 600 MG Orally 3 times a day 1 tablet 8h Oct, 30 day(s) Not-Taking Lyrica Active Amoxicillin 500 mg Orally every 8 hrs 1 capsule 8h Oct, 07 days Active RESULTS No Results PROCEDURES Procedure Date Ordered Result Body Site EAR IRRIGATION January 17, 2018 INSTRUCTIONS MEDICATIONS ADMINISTERED No Known Medications MEDICAL (GENERAL) HISTORY Type Description Date Medical History borderline diabetes Medical History hyperlipidema
--- OUTSIDE RECORDS SUMMARY | 2018-12-18 18:00 | XMS REPORT ---
Author Author CALE UGALDE Organization [facility] Address [address] [place] [address] Care Team Providers Care Silk Folder Name Role Phone CALE UGALDE Unavailable PROBLEMS Type Condition ICD9-CM Code LYO10-TV Code Onset Dates Condition Status SNOMED Code Problem Left carpal tunnel syndrome G56.02 Active 568308318183187 Problem Carpal tunnel syndrome of left wrist G56.02 Active 05270272 Problem Other chronic pain G89.29 Active 17157778 Problem Lumbago with sciatica, right side M54.41 Active 319315259 Problem Hyperlipidemia, unspecified hyperlipidemia type E78.5 Active 28403356 Problem Degenerative disc disease at L5-S1 level M51.36 Active 67982987 Problem Arthritis M19.90 Active 8922926 Problem Intention tremor G25.2 Active [id number] ALLERGIES No Information ENCOUNTERS Encounter Location Date Diagnosis [facility] [id number] [place] [address] Feb, [facility] [id number] [place] [address] Feb, [facility] [id number] [place] [address] Jan, [facility] [id number] [place] [address] Jan, Skin tag L91.8 [facility] [id number] [place] [address] Jan, [facility] [id number] [place] [address] Jan, [facility] [id number] [place] [address] Jan, Acute diarrhea R19.7 [facility] [address] [address] Jan, [facility] [id number] [place] [address] Jan, Degenerative disc disease at L5-S1 level M51.36 ; Lumbago with sciatica, right side M54.41 ; Skin tag L91.8 and BMI 40.0-44.9, adult Z68.41 [facility] [id number] [place] [address] 28 Dec, 2017 Acute diarrhea R19.7 ; Impacted cerumen of both ears H61.23 ; Systemic antibiotic causing adverse effect in therapeutic use, initial encounter T36.95XA and BMI 40.0-44.9, adult Z68.41 [facility] [address], [place] [address] Dec, [facility] [id number] [place] [address] Dec, [facility] [id number] [address] November, [facility] [id number] [place] [address] Oct, [facility] [address], [place] [address] Oct, [facility] [id number] [place] [address] Oct, [facility] [address], [place] [address] Oct, Lumbago with sciatica, right side M54.41 ; Degenerative disc disease at L5-S1 level M51.36 and BMI 40.0-44.9, adult Z68.41 [facility] [address], [place] [address] Sep, Other chronic pain G89.29 [facility] [id number] [place] [address] Sep, Degenerative disc disease at L5-S1 level M51.36 [facility] [address] [place] [id number] Aug, Lumbago with sciatica, right side M54.41 ; Other chronic pain G89.29 and BMI 40.0- 44.9, adult Z68.41 [facility] [id number] [place] [address] Aug, Degenerative disc disease at L5-S1 level M51.36 [facility] [address] [address] Aug, Tooth abscess K04.7 [facility] [address] [address] Jul, Degenerative disc disease at L5-S1 level M51.36 [facility] [id number] [place] [address] Jun, [facility] [id number] [place] [address] Jun, Degenerative disc disease at L5-S1 level M51.36 [facility] [id number] [place] [address] Jun, Degenerative disc disease at L5-S1 level M51.36 [facility] [id number] [place] [address] May, Degenerative disc disease at L5-S1 level M51.36 [facility] [id number] [place] [address] Apr, Degenerative disc disease at L5-S1 level M51.36 ; Arthritis M19.90 and Intention tremor G25.2 [facility] [id number] [place] [address] Apr, Degenerative disc disease at L5-S1 level M51.36 [place] [address], [place] [address] Mar, [facility] [address], [place] [address] Mar, [facility] [address], [place] [address] Mar, Degenerative disc disease at L5-S1 level M51.36 [facility] [id number] [place] [address] Feb, [facility] [address], [place] [address] Feb, Degenerative disc disease at L5-S1 level M51.36 [facility] [address], [place] [address] Feb, [facility] [id number] [place] [address] Jan, [facility] [id number], [place] [address] Jan, Hyperlipidemia, unspecified hyperlipidemia type E78.5 ; Degenerative disc disease at L5-S1 level M51.36 ; Right hip pain M25.551 ; Piriformis syndrome, right G57.01 and Pre-diabetes R73.03 [facility] [address], [place] [address] Jan, Degenerative disc disease at L5-S1 level M51.36 [facility] [address], [place] [address] Jan, [facility] [address], [place] [address] Dec, Degenerative disc disease at L5-S1 level M51.36 ; Right hip pain M25.551 and Piriformis syndrome, right G57.01 [facility] [address], [place] [address] Dec, [facility] [id number] [place] [address] Dec, [facility] [address] [address] Dec, Degenerative disc disease at L5-S1 level M51.36 [facility] [address] [address] November, [facility] [address] [address] November, Right hip pain M25.551 and Hyperlipidemia, unspecified hyperlipidemia type E78.5 [place] [address] [address] Aug, Acute right-sided low back pain without sciatica M54.5 and Oral lesion K13.70 [facility] [address] [address] Jul, Left carpal tunnel syndrome G56.02 [facility] [id number] [place] [address] Jun, [facility] [address] [address] May, Abscess L02.91 and Cough R05 [facility] [id number] [place] [address] May, [facility] [id number] [place] [address] May, [facility] [id number] [place] [address] May, [facility] [address] [address] May, Carpal tunnel syndrome of left wrist G56.02 [facility] [id number] [place] [address] Apr, [place] [address] [id number] [place] [address] 07 Apr, 2016 Acute non-recurrent maxillary sinusitis J01.00 [facility] [address] [id number] [place] [address] 14 Oct, 2014 [facility] [address] [id number] [place] [address] 13 Oct, 2014 [facility] [address] [place] [id number] 17 Sep, 2014 [facility] [address] [id number] [place] [address] 17 Sep, 2014 [facility] [address] [id number] Sep, [facility] [address] [id number] [place] [address] Sep, [facility] [address] [id number] [place] [address] May, [facility] [address] [id number] [place] [address] May, [facility] [address] [id number] [place] [address] Apr, [facility] [address] [id number] [place] [address] Apr, [facility] [address] [id number] [place] [address] Feb, [facility] [address] [id number] [place] [address] Feb, [facility] [address] [id number] Dec, [facility] [address] [id number] [place] [address] Dec, [facility] [address] [place] [id number] November, [facility] [address] [id number] [place] [address] November, IMMUNIZATIONS No Known Immunizations SOCIAL HISTORY Never Assessed REASON FOR VISIT PLAN OF CARE VITAL SIGNS MEDICATIONS Medication Instructions Dosage Frequency Start Date End Date Duration Status Amoxicillin 500 mg Orally every 8 hrs 1 capsule 8h Oct, 07 days Active Ibuprofen 800 MG Orally Three times a day 1 tablet with food or milk as needed 8h Active RESULTS No Results PROCEDURES No Known procedures INSTRUCTIONS MEDICATIONS ADMINISTERED No Known Medications MEDICAL (GENERAL) HISTORY Type Description Date Medical History borderline diabetes Medical History hyperlipidema
--- OUTSIDE RECORDS SUMMARY | 2018-12-18 18:00 | XMS REPORT ---
Author Author CALE UGALDE Organization [facility] Address [address] [place] [address] Care Team Providers Care Technician'S Helper Name Role Phone CALE UGALDE Unavailable PROBLEMS Type Condition ICD9-CM Code ZJR46-QD Code Onset Dates Condition Status SNOMED Code Problem Left carpal tunnel syndrome G56.02 Active 138658954711511 Problem Carpal tunnel syndrome of left wrist G56.02 Active 86021477 Problem Other chronic pain G89.29 Active 10074628 Problem Lumbago with sciatica, right side M54.41 Active 867227860 Problem Hyperlipidemia, unspecified hyperlipidemia type E78.5 Active 69950672 Problem Degenerative disc disease at L5-S1 level M51.36 Active 41690506 Problem Arthritis M19.90 Active 7030116 Problem Intention tremor G25.2 Active 76976383 ALLERGIES No Known Allergies ENCOUNTERS Encounter Location Date Diagnosis [place] [id number] [place] [address] Feb, [place] [id number] [place] [address] Feb, [facility] [id number] [place] [address] Jan, [facility] [id number] [place] [address] Jan, Skin tag L91.8 [facility] [id number] [place] [address] Jan, [facility] [id number] [place] [address] Jan, [facility] [id number] [place] [address] Jan, Acute diarrhea R19.7 [facility] [address] [address] Jan, [facility] [id number] [place] [address] Jan, Degenerative disc disease at L5-S1 level M51.36 ; Lumbago with sciatica, right side M54.41 ; Skin tag L91.8 and BMI 40.0-44.9, adult Z68.41 [facility] [id number] [place] [address] Dec, Acute diarrhea R19.7 ; Impacted cerumen of both ears H61.23 ; Systemic antibiotic causing adverse effect in therapeutic use, initial encounter T36.95XA and BMI 40.0-44.9, adult Z68.41 [facility] [address] [address] Dec, [facility] [id number] [place] [address] Dec, [facility] [id number] [address] November, [facility] [id number] [place] [address] Oct, [facility] [address] [address] Oct, [facility] [id number] [place] [address] Oct, [facility] [address] [address] Oct, Lumbago with sciatica, right side M54.41 ; Degenerative disc disease at L5-S1 level M51.36 and BMI 40.0-44.9, adult Z68.41 [facility] [address] [address] 06 Mar, 2018 Other chronic pain G89.29 [facility] [id number] [place] [address] Sep, Degenerative disc disease at L5-S1 level M51.36 [facility] [address] [place] [id number] Aug, Lumbago with sciatica, right side M54.41 ; Other chronic pain G89.29 and BMI 40.0- 44.9, adult Z68.41 [facility] [address] [address] Aug, Degenerative disc disease at L5-S1 level M51.36 [facility] [address] [address] Aug, Tooth abscess K04.7 [facility] [address] [address] Jul, Degenerative disc disease at L5-S1 level M51.36 [facility] [id number] [place] [address] Jun, [facility] [address] [address] Jun, Degenerative disc disease at L5-S1 level M51.36 [facility] [id number] [place] [address] Jun, Degenerative disc disease at L5-S1 level M51.36 [facility] [address] [address] May, Degenerative disc disease at L5-S1 level M51.36 [facility] [id number] [place] [address] Apr, Degenerative disc disease at L5-S1 level M51.36 ; Arthritis M19.90 and Intention tremor G25.2 [facility] [id number] [place] [address] Apr, Degenerative disc disease at L5-S1 level M51.36 [facility] [address] [address] Mar, [facility] [address] [address] Mar, [facility] [address] [address] Mar, Degenerative disc disease at L5-S1 level M51.36 [facility] [id number] [place] [address] Feb, [facility] [address] [address] Feb, Degenerative disc disease at L5-S1 level M51.36 [facility] [id number] [address] Feb, [facility] [id number] [place] [address] Jan, [facility] [address] [address] Jan, Hyperlipidemia, unspecified hyperlipidemia type E78.5 ; Degenerative disc disease at L5-S1 level M51.36 ; Right hip pain M25.551 ; Piriformis syndrome, right G57.01 and Pre-diabetes R73.03 [facility] [address] [address] Jan, Degenerative disc disease at L5-S1 level M51.36 [facility] [address] [address] Jan, [facility] [id number] [address] Dec, Degenerative disc disease at L5-S1 level M51.36 ; Right hip pain M25.551 and Piriformis syndrome, right G57.01 [facility] [address] [address] Dec, [facility] [id number] [place] [address] Dec, [facility] [address] [address] Dec, Degenerative disc disease at L5-S1 level M51.36 [facility] [address] [address] November, [facility] [address] [address] November, Right hip pain M25.551 and Hyperlipidemia, unspecified hyperlipidemia type E78.5 [place] [address] [address] Aug, Acute right-sided low back pain without sciatica M54.5 and Oral lesion K13.70 [place] [address] [address] Jul, Left carpal tunnel syndrome G56.02 [facility] [id number] [place] [address] Jun, [facility] [address] [address] May, Abscess L02.91 and Cough R05 [facility] [id number] [place] [address] May, [facility] [id number] [place] [address] May, [facility] [id number] [place] [address] May, [facility] [address] [address] May, Carpal tunnel syndrome of left wrist G56.02 [facility] [id number] [place] [address] Apr, [place] [address] [id number] [place] [address] 07 Apr, 2016 Acute non-recurrent maxillary sinusitis J01.00 [facility] [address] [id number] [place] [address] 14 Oct, 2014 [facility] [address] [id number] [place] [address] Oct, [facility] [address] [place] [id number] Sep, [facility] [address] [id number] [place] [address] Sep, [facility] [address] [id number] Sep, [facility] [address] [id number] [place] [address] Sep, [facility] [address] [id number] [place] [address] May, [facility] [address] [id number] [place] [address] May, [facility] [address] [id number] [place] [address] Apr, [facility] [address] [id number] [place] [address] Apr, [facility] [address] [id number] [place] [address] Feb, [facility] [address] [id number] [place] [address] Feb, [facility] [address] [id number] Dec, [facility] [address] [id number] [place] [address] Dec, [facility] [address] [place] [id number] November, [facility] [address] [id number] [place] [address] November, IMMUNIZATIONS No Known Immunizations SOCIAL HISTORY Never Assessed REASON FOR VISIT Pain management (chronic)----MARYANN Torre CONTROLLED MEDS- PHQ2, AUDIT C PLAN OF CARE Activity Details Follow Up 3 Months Reason: VITAL SIGNS Height 68 in 2017-10-22 Weight 271 lbs 2017-10-22 Temperature 98.5 degrees Fahrenheit 2017-10-22 Heart Rate 70 bpm 2017-10-22 Respiratory Rate 20 2017-10-22 BMI 41.20 kg/m2 2017-10-22 Blood pressure systolic 124 mmHg 2017-10-22 Blood pressure diastolic 90 mmHg 2017-10-22 MEDICATIONS Medication Instructions Dosage Frequency Start Date End Date Duration Status Ibuprofen 800 MG Orally Three times a day 1 tablet with food or milk as needed 8h Active Gabapentin 600 MG Orally 3 times a day 1 tablet 8h Oct, 30 day(s) Active Gabapentin 100 MG Orally Three times a day 1 capsule 8h Aug, 30 day(s) Not-Taking Lopid 600 MG Orally Twice a day 1 tablet 12h Active RESULTS No Results PROCEDURES No Known procedures INSTRUCTIONS MEDICATIONS ADMINISTERED No Known Medications MEDICAL (GENERAL) HISTORY Type Description Date Medical History borderline diabetes Medical History hyperlipidema
--- OUTSIDE RECORDS SUMMARY | 2018-12-18 18:00 | XMS REPORT ---
Author Author CALE UGALDE Organization [facility] Address [address] [place] [address] Care Team Providers Care Packager Or Packer And Weigher Name Role Phone CALE UGALDE Unavailable PROBLEMS Type Condition ICD9-CM Code QAP77-VS Code Onset Dates Condition Status SNOMED Code Problem Left carpal tunnel syndrome G56.02 Active 587028862270790 Problem Carpal tunnel syndrome of left wrist G56.02 Active 68023567 Problem Other chronic pain G89.29 Active 41267751 Problem Lumbago with sciatica, right side M54.41 Active 842735575 Problem Hyperlipidemia, unspecified hyperlipidemia type E78.5 Active 70659918 Problem Degenerative disc disease at L5-S1 level M51.36 Active 11168130 Problem Arthritis M19.90 Active 6497302 Problem Intention tremor G25.2 Active [id number] ALLERGIES No Information ENCOUNTERS Encounter Location Date Diagnosis [facility] [id number] [place] [address] Feb, [facility] [id number] [place] [address] Feb, [facility] [id number] [place] [address] Jan, [facility] [id number] [place] [address] Jan, Skin tag L91.8 [facility] [id number] [place] [address] Jan, [facility] [id number] [place] [address] Jan, [facility] [id number] [place] [address] Jan, Acute diarrhea R19.7 [facility] [address], [place] [address] Jan, [facility] [id number] [place] [address] Jan, Degenerative disc disease at L5-S1 level M51.36 ; Lumbago with sciatica, right side M54.41 ; Skin tag L91.8 and BMI 40.0-44.9, adult Z68.41 [facility] [id number] [place] [address] 28 Dec, 2017 Acute diarrhea R19.7 ; Impacted cerumen of both ears H61.23 ; Systemic antibiotic causing adverse effect in therapeutic use, initial encounter T36.95XA and BMI 40.0-44.9, adult Z68.41 [facility] [address], [place] [address] Dec, [facility] [id number] [place] [address] Dec, [facility] [id number] [address] November, [facility] [id number] [place] [address] Oct, [facility] [address] [address] Oct, [facility] [id number] [place] [address] Oct, [facility] [address], [place] [address] Oct, Lumbago with sciatica, right side M54.41 ; Degenerative disc disease at L5-S1 level M51.36 and BMI 40.0-44.9, adult Z68.41 [facility] [address], [place] [address] Sep, Other chronic pain G89.29 [facility] [id number] [place] [address] Sep, Degenerative disc disease at L5-S1 level M51.36 [facility] [address] [place] [id number] Aug, Lumbago with sciatica, right side M54.41 ; Other chronic pain G89.29 and BMI 40.0- 44.9, adult Z68.41 [facility] [id number] [place] [address] Aug, Degenerative disc disease at L5-S1 level M51.36 [facility] [address] [address] Aug, Tooth abscess K04.7 [facility] [address] [address] Jul, Degenerative disc disease at L5-S1 level M51.36 [facility] [id number] [place] [address] Jun, [facility] [id number] [place] [address] Jun, Degenerative disc disease at L5-S1 level M51.36 [facility] [id number] [place] [address] Jun, Degenerative disc disease at L5-S1 level M51.36 [facility] [id number] [place] [address] May, Degenerative disc disease at L5-S1 level M51.36 [facility] [id number] [place] [address] Apr, Degenerative disc disease at L5-S1 level M51.36 ; Arthritis M19.90 and Intention tremor G25.2 [facility] [id number] [place] [address] Apr, Degenerative disc disease at L5-S1 level M51.36 [place] [address] [address] Mar, [facility] [address], [place] [address] Mar, [facility] [address], [place] [address] Mar, Degenerative disc disease at L5-S1 level M51.36 [facility] [id number] [place] [address] Feb, [facility] [address], [place] [address] Feb, Degenerative disc disease at L5-S1 level M51.36 [facility] [address], [place] [address] Feb, [facility] [id number] [place] [address] Jan, [facility] [id number], [place] [address] Jan, Hyperlipidemia, unspecified hyperlipidemia type E78.5 ; Degenerative disc disease at L5-S1 level M51.36 ; Right hip pain M25.551 ; Piriformis syndrome, right G57.01 and Pre-diabetes R73.03 [facility] [address], [place] [address] Jan, Degenerative disc disease at L5-S1 level M51.36 [facility] [address], [place] [address] Jan, [facility] [address], [place] [address] Dec, Degenerative disc disease at L5-S1 level M51.36 ; Right hip pain M25.551 and Piriformis syndrome, right G57.01 [facility] [address], [place] [address] Dec, [facility] [id number] [place] [address] Dec, [facility] [address] [address] Dec, Degenerative disc disease at L5-S1 level M51.36 [facility] [address] [address] November, [facility] [address] [address] November, Right hip pain M25.551 and Hyperlipidemia, unspecified hyperlipidemia type E78.5 [place] [address] [address] Aug, Acute right-sided low back pain without sciatica M54.5 and Oral lesion K13.70 [facility] [address] [address] Jul, Left carpal tunnel syndrome G56.02 [facility] [id number] [place] [address] Jun, [facility] [address] [address] May, Abscess L02.91 and Cough R05 [facility] [id number] [place] [address] May, [facility] [id number] [place] [address] May, [facility] [id number] [place] [address] May, [facility] [address] [address] May, Carpal tunnel syndrome of left wrist G56.02 [facility] [id number] [place] [address] Apr, [place] [address] [id number] [place] [address] 07 Apr, 2016 Acute non-recurrent maxillary sinusitis J01.00 [facility] [address] [id number] [place] [address] 14 Oct, 2014 [facility] [address] [id number] [place] [address] 13 Oct, 2014 [facility] [address] [place] [id number] 17 Sep, 2014 [facility] [address] [id number] [place] [address] 17 Sep, 2014 [facility] [address] [id number] Sep, [facility] [address] [id number] [place] [address] Sep, [facility] [address] [id number] [place] [address] May, [facility] [address] [id number] [place] [address] May, [facility] [address] [id number] [place] [address] Apr, [facility] [address] [id number] [place] [address] Apr, [facility] [address] [id number] [place] [address] Feb, [facility] [address] [id number] [place] [address] Feb, [facility] [address] [id number] Dec, [facility] [address] [id number] [place] [address] Dec, [facility] [address] [place] [id number] November, [facility] [address] [id number] [place] [address] November, IMMUNIZATIONS No Known Immunizations SOCIAL HISTORY Never Assessed REASON FOR VISIT PLAN OF CARE VITAL SIGNS MEDICATIONS Medication Instructions Dosage Frequency Start Date End Date Duration Status Amoxicillin 500 mg Orally every 8 hrs 1 capsule 8h Oct, Oct, 07 days Active Ibuprofen 800 MG Orally Three times a day 1 tablet with food or milk as needed 8h Active RESULTS No Results PROCEDURES No Known procedures INSTRUCTIONS MEDICATIONS ADMINISTERED No Known Medications MEDICAL (GENERAL) HISTORY Type Description Date Medical History borderline diabetes Medical History hyperlipidema
--- OUTSIDE RECORDS SUMMARY | 2018-12-18 18:00 | XMS REPORT ---
Author Author CALE UGALDE Organization [facility] Address [address] [place] [address] Care Team Providers Care Farmworker Bulbs Name Role Phone CALE UGALDE Unavailable PROBLEMS Type Condition ICD9-CM Code RFB93-GH Code Onset Dates Condition Status SNOMED Code Problem Left carpal tunnel syndrome G56.02 Active 072085722046801 Problem Carpal tunnel syndrome of left wrist G56.02 Active 87714108 Problem Other chronic pain G89.29 Active 42509524 Problem Lumbago with sciatica, right side M54.41 Active 457632061 Problem Hyperlipidemia, unspecified hyperlipidemia type E78.5 Active 95296131 Problem Degenerative disc disease at L5-S1 level M51.36 Active 94627552 Problem Arthritis M19.90 Active 4738429 Problem Intention tremor G25.2 Active 73018851 ALLERGIES No Information ENCOUNTERS Encounter Location Date Diagnosis [facility] [id number] [place] [address] Feb, [facility] [id number] [place] [address] Feb, [facility] [id number] [place] [address] Jan, [facility] [id number] [place] [address] Jan, Skin tag L91.8 [facility] [id number] [place] [address] Jan, [facility] [id number] [place] [address] Jan, [facility] [id number] [place] [address] Jan, Acute diarrhea R19.7 [facility] [address], [place] [address] Jan, [facility] [id number] [place] [address] Jan, Degenerative disc disease at L5-S1 level M51.36 ; Lumbago with sciatica, right side M54.41 ; Skin tag L91.8 and BMI 40.0-44.9, adult Z68.41 [facility] [id number] [place] [address] 28 Dec, 2017 Acute diarrhea R19.7 ; Impacted cerumen of both ears H61.23 ; Systemic antibiotic causing adverse effect in therapeutic use, initial encounter T36.95XA and BMI 40.0-44.9, adult Z68.41 [facility] [address], [place] [address] Dec, [facility] [id number] [place] [address] Dec, [facility] [id number], [place] [address] November, [facility] [id number] [place] [address] Oct, [facility] [address], [place] [address] Oct, [facility] [id number] [place] [address] Oct, [facility] [address], [place] [address] Oct, Lumbago with sciatica, right side M54.41 ; Degenerative disc disease at L5-S1 level M51.36 and BMI 40.0-44.9, adult Z68.41 [facility] [address], [place] [address] Sep, Other chronic pain G89.29 [facility] [id number] [place] [address] Sep, Degenerative disc disease at L5-S1 level M51.36 [facility] [address] [place] [id number] Aug, Lumbago with sciatica, right side M54.41 ; Other chronic pain G89.29 and BMI 40.0- 44.9, adult Z68.41 [facility] [id number] [place] [address] Aug, Degenerative disc disease at L5-S1 level M51.36 [facility] [address] [address] Aug, Tooth abscess K04.7 [facility] [address] [address] Jul, Degenerative disc disease at L5-S1 level M51.36 [facility] [id number] [place] [address] Jun, [facility] [id number] [place] [address] Jun, Degenerative disc disease at L5-S1 level M51.36 [facility] [id number] [place] [address] Jun, Degenerative disc disease at L5-S1 level M51.36 [facility] [id number] [place] [address] May, Degenerative disc disease at L5-S1 level M51.36 [facility] [id number] [place] [address] Apr, Degenerative disc disease at L5-S1 level M51.36 ; Arthritis M19.90 and Intention tremor G25.2 [facility] [id number] [place] [address] Apr, Degenerative disc disease at L5-S1 level M51.36 [place] [address], [place] [address] Mar, [facility] [address], [place] [address] Mar, [facility] [address], [place] [address] Mar, Degenerative disc disease at L5-S1 level M51.36 [facility] [id number] [place] [address] Feb, [facility] [address], [place] [address] Feb, Degenerative disc disease at L5-S1 level M51.36 [facility] [address], [place] [address] Feb, [facility] [id number] [place] [address] Jan, [facility] [id number], [place] [address] Jan, Hyperlipidemia, unspecified hyperlipidemia type E78.5 ; Degenerative disc disease at L5-S1 level M51.36 ; Right hip pain M25.551 ; Piriformis syndrome, right G57.01 and Pre-diabetes R73.03 [facility] [address], [place] [address] Jan, Degenerative disc disease at L5-S1 level M51.36 [facility] [address], [place] [address] Jan, [facility] [address], [place] [address] Dec, Degenerative disc disease at L5-S1 level M51.36 ; Right hip pain M25.551 and Piriformis syndrome, right G57.01 [facility] [address], [place] [address] Dec, [facility] [id number] [place] [address] Dec, [facility] [address] [address] Dec, Degenerative disc disease at L5-S1 level M51.36 [facility] [address] [address] November, [facility] [address] [address] November, Right hip pain M25.551 and Hyperlipidemia, unspecified hyperlipidemia type E78.5 [place] [address] [address] Aug, Acute right-sided low back pain without sciatica M54.5 and Oral lesion K13.70 [facility] [address] [address] Jul, Left carpal tunnel syndrome G56.02 [facility] [id number] [place] [address] Jun, [facility] [address] [address] May, Abscess L02.91 and Cough R05 [facility] [id number] [place] [address] May, [facility] [id number] [place] [address] May, [facility] [id number] [place] [address] May, [facility] [address] [address] May, Carpal tunnel syndrome of left wrist G56.02 [facility] [id number] [place] [address] Apr, [place] [address] [id number] [place] [address] 07 Apr, 2016 Acute non-recurrent maxillary sinusitis J01.00 [facility] [address] [id number] [place] [address] 14 Oct, 2014 [facility] [address] [id number] [place] [address] 13 Oct, 2014 [facility] [address] [place] [id number] 17 Sep, 2014 [facility] [address] [id number] [place] [address] 17 Sep, 2014 [facility] [address] [place] [id number] Sep, [facility] [address] [id number] [place] [address] Sep, [facility] [address] [id number] [place] [address] May, [facility] [address] [id number] [place] [address] May, [facility] [address] [id number] [place] [address] Apr, [facility] [address] [id number] [place] [address] Apr, [facility] [address] [id number] [place] [address] Feb, [facility] [address] [id number] [place] [address] Feb, [facility] [address] [place] [id number] Dec, [facility] [address] [id number] [place] [address] Dec, [facility] [address] [place] [id number] November, [facility] [address] [id number] [place] [address] November, IMMUNIZATIONS No Known Immunizations SOCIAL HISTORY Never Assessed REASON FOR VISIT Refill request PLAN OF CARE VITAL SIGNS MEDICATIONS Unknown Medications RESULTS No Results PROCEDURES No Known procedures INSTRUCTIONS MEDICATIONS ADMINISTERED No Known Medications MEDICAL (GENERAL) HISTORY Type Description Date Medical History borderline diabetes Medical History hyperlipidema
--- OUTSIDE RECORDS SUMMARY | 2018-12-18 18:01 | XMS REPORT ---
Author Author Migration, Doctor Organization [facility] Address Unknown Phone Unavailable Care Team Providers Care Console Operator Name Role Phone Migration, Doctor Unavailable Unavailable PROBLEMS Type Condition ICD9-CM Code DZD29-SW Code Onset Dates Condition Status SNOMED Code Problem Left carpal tunnel syndrome G56.02 Active 454607977806918 Problem Degenerative disc disease at L5-S1 level M51.36 Active 83777752 Problem Hyperlipidemia, unspecified hyperlipidemia type E78.5 Active 26277429 Problem Hypertension I10 Active 65874832 Problem Carpal tunnel syndrome of left wrist G56.02 Active 57656653 Problem DDD (degenerative disc disease), lumbar M51.36 Active 26250572 Problem Intention tremor G25.2 Active 21370557 Problem Arthritis M19.90 Active 0381401 Problem Lumbago with sciatica, right side M54.41 Active 445177773 Problem Other chronic pain G89.29 Active 09401462 ALLERGIES No Information ENCOUNTERS Encounter Location Date Diagnosis [place] [address] [address] Aug, DDD (degenerative disc disease), lumbar M51.36 [facility] [address] [place] [id number] [place] [address] Jul, Hypertension I10 [facility] [address] [id number] [place] [address] Jul, Hypertension I10 [facility] [address] [id number] [place] [address] Jul, Lumbago with sciatica, right side M54.41 and Hypertension I10 [facility] [address] [id number] [place] [address] Jan, [facility] [id number] [place] [address] Jan, Skin tag L91.8 [facility] [address] [address] Jan, [facility] [address] [id number] [place] [address] Jan, [facility] [address] [address] Jan, Acute diarrhea R19.7 [facility] [address] [id number] [place] [address] Jan, [facility] [id number] [place] [address] Jan, Degenerative disc disease at L5-S1 level M51.36 ; Lumbago with sciatica, right side M54.41 ; Skin tag L91.8 and BMI 40.0-44.9, adult Z68.41 [facility] [address] [place] [address] Dec, Acute diarrhea R19.7 ; Impacted cerumen of both ears H61.23 ; Systemic antibiotic causing adverse effect in therapeutic use, initial encounter T36.95XA and BMI 40.0-44.9, adult Z68.41 [facility] [address] [address] Dec, [facility] [address] [address] Dec, Lumbago with sciatica, right side M54.41 [facility] [address] [address] November, Degenerative disc disease at L5-S1 level M51.36 and Lumbago with sciatica, right side M54.41 [facility] [address] [address] Oct, [facility] [address] [address] Oct, [facility] [address] [place] [address] Oct, [facility] [address] [place] [address] [id number] [place] [address] Oct, Lumbago with sciatica, right side M54.41 ; Degenerative disc disease at L5-S1 level M51.36 and BMI 40.0-44.9, adult Z68.41 [facility] [address] [place] [id number] [place] [address] Sep, Other chronic pain G89.29 [facility] [address] [place] [id number] [place] [address] Sep, Degenerative disc disease at L5-S1 level M51.36 [facility] [address] [place] [id number] Aug, Lumbago with sciatica, right side M54.41 ; Other chronic pain G89.29 and BMI 40.0- 44.9, adult Z68.41 [facility] [address] [place] [id number] [place] [address] Aug, Degenerative disc disease at L5-S1 level M51.36 [place] [address] [id number] [place] [address] Aug, Tooth abscess K04.7 [facility] [address] [place] [id number] [place] [address] Jul, Degenerative disc disease at L5-S1 level M51.36 [facility] [address] [place] [address] Jun, [facility] [address] [place] [id number] [place] [address] Jun, Degenerative disc disease at L5-S1 level M51.36 [facility] [address] [place] [id number] [place] [address] Jun, Degenerative disc disease at L5-S1 level M51.36 [facility] [address] [id number] [place] [address] May, Degenerative disc disease at L5-S1 level M51.36 [facility] [address] [id number] [place] [address] Apr, Degenerative disc disease at L5-S1 level M51.36 ; Arthritis M19.90 and Intention tremor G25.2 [facility] [address] [place] [id number] [place] [address] Apr, Degenerative disc disease at L5-S1 level M51.36 [facility] [address] [place] [id number] [place] [address] Mar, [facility] [address] [place] [id number] [place] [address] Mar, [facility] [address] [place] [id number] [place] [address] Mar, Degenerative disc disease at L5-S1 level M51.36 [facility] [address] [place] [id number] [place] [address] Feb, [facility] [address] [place] [id number] [place] [address] Feb, Degenerative disc disease at L5-S1 level M51.36 [facility] [address] [id number] [place] [address] Feb, [facility] [address] [place] [id number] [place] [address] Jan, [facility] [address] [place] [address] Jan, Hyperlipidemia, unspecified hyperlipidemia type E78.5 ; Degenerative disc disease at L5-S1 level M51.36 ; Right hip pain M25.551 ; Piriformis syndrome, right G57.01 and Pre-diabetes R73.03 [facility] [address] [address] Jan, Degenerative disc disease at L5-S1 level M51.36 [facility] [address] [id number] [place] [address] Jan, [facility] [address] [place] [id number] [place] [address] Dec, Degenerative disc disease at L5-S1 level M51.36 ; Right hip pain M25.551 and Piriformis syndrome, right G57.01 [facility] [address] [place] [id number] [place] [address] Dec, [facility] [address] [place] [id number] [place] [address] Dec, [facility] [address] [place] [id number] [place] [address] Dec, Degenerative disc disease at L5-S1 level M51.36 [place] [address] [address] November, [facility] [address] [place] [id number] [place] [address] November, Right hip pain M25.551 and Hyperlipidemia, unspecified hyperlipidemia type E78.5 [place] [address] [place] [id number] [place] [address] Aug, Acute right-sided low back pain without sciatica M54.5 and Oral lesion K13.70 [place] [address] [place] [id number] [place] [address] Jul, Left carpal tunnel syndrome G56.02 [facility] [address] [place] [id number] [place] [address] Jun, [place] [address] [address] May, Abscess L02.91 and Cough R05 [place] [address] [place] [id number] [place] [address] May, [place] [address] [id number] [address] 11 May, 2016 [facility] [address] [facility] [id number] [place] [address] 07 May, 2016 [facility] [address] [facility] [id number] [address] 04 May, 2016 Carpal tunnel syndrome of left wrist G56.02 [facility] [address] [facility] [id number] [place] [address] 11 Apr, 2016 [facility] [address] [facility] [id number] [address] 07 Apr, 2016 Acute non-recurrent maxillary sinusitis J01.00 [facility] [address] [facility] [id number] [place] [address] 14 Oct, 2014 [facility] [address] [facility] [id number] [address] 13 Oct, 2014 [facility] [address] [place] [id number] 17 Sep, 2014 [facility] [address] [facility] [id number] [place] [address] 17 Sep, 2014 [facility] [address] [place] [id number] 10 Sep, 2014 [facility] [address] [facility] [id number] [place] [address] 10 Sep, 2014 [facility] [address] [facility] [id number] [address] May, [facility] [address] [facility] [id number] [place] [address] May, [facility] [address] [facility] [id number] [place] [address] Apr, [facility] [address] [facility] [id number] [place] [address] 07 Apr, 2014 [facility] [address] [facility] [id number] [place] [address] Feb, [facility] [address] [facility] [id number] [place] [address] Feb, [facility] [address] [place] [id number] Dec, [facility] [address] [facility] [id number] [place] [address] Dec, [facility] [address] [place] [id number] November, [facility] [address] [facility] [id number] [place] [address] November, IMMUNIZATIONS No Known Immunizations SOCIAL HISTORY Never Assessed REASON FOR VISIT [place] [place] VITAL SIGNS MEDICATIONS Unknown Medications RESULTS No Results PROCEDURES No Known procedures INSTRUCTIONS MEDICATIONS ADMINISTERED No Known Medications MEDICAL (GENERAL) HISTORY Type Description Date Medical History borderline diabetes Medical History hyperlipidema
--- OUTSIDE RECORDS SUMMARY | 2018-12-18 18:01 | XMS REPORT ---
Author Author CALE UGALDE Organization [facility] Address [address] [place] [address] Care Team Providers Care Pastoral Worker Name Role Phone CALE UGALDE Unavailable PROBLEMS Type Condition ICD9-CM Code VZD77-[place] Code Onset Dates Condition Status SNOMED Code Problem Left carpal tunnel syndrome G56.02 Active 444038000470237 Problem Carpal tunnel syndrome of left wrist G56.02 Active 19782026 Problem Other chronic pain G89.29 Active 24174472 Problem Lumbago with sciatica, right side M54.41 Active 255158157 Problem Hyperlipidemia, unspecified hyperlipidemia type E78.5 Active 54779585 Problem Degenerative disc disease at L5-S1 level M51.36 Active 19040247 Problem Arthritis M19.90 Active 4717362 Problem Intention tremor G25.2 Active 30931152 ALLERGIES No Information ENCOUNTERS Encounter Location Date Diagnosis [place] [address] [address] Jan, [place] [address] [place] [id number] [place] [address] Jan, [place] [address] [place] [id number] [place] [address] Jan, [place] [address] [address] Dec, Acute diarrhea R19.7 ; Impacted cerumen of both ears H61.23 ; Systemic antibiotic causing adverse effect in therapeutic use, initial encounter T36.95XA and BMI 40.0-44.9, adult Z68.41 [place] [address] [place] [id number] [place] [address] Dec, [place] [address] [address] Dec, [facility] [address] [address] November, [facility] [address] [place] [id number] [place] [address] Oct, [facility] [address] [place] [address] Oct, [facility] [address] [place] [id number] [place] [address] Oct, [facility] [id number] [place] [address] Oct, Lumbago with sciatica, right side M54.41 ; Degenerative disc disease at L5-S1 level M51.36 and BMI 40.0-44.9, adult Z68.41 [facility] [address] [place] [id number] [place] [address] Sep, Other chronic pain G89.29 [facility] [address] [place] [address] Sep, Degenerative disc disease at L5-S1 level M51.36 [facility] [address] [place] [id number] Aug, Lumbago with sciatica, right side M54.41 ; Other chronic pain G89.29 and BMI 40.0- 44.9, adult Z68.41 [facility] [address] [place] [address] Aug, Degenerative disc disease at L5-S1 level M51.36 [facility] [address] [place] [address] Aug, Tooth abscess K04.7 [facility] [address] [place] [address] Jul, Degenerative disc disease at L5-S1 level M51.36 [facility] [address] [place] [address] Jun, [facility] [address] [address] Jun, Degenerative disc disease at L5-S1 level M51.36 [facility] [address] [address] Jun, Degenerative disc disease at L5-S1 level M51.36 [facility] [address] [place] [id number] [place] [address] May, Degenerative disc disease at L5-S1 level M51.36 [facility] [address] [place] [id number] [place] [address] Apr, Degenerative disc disease at L5-S1 level M51.36 ; Arthritis M19.90 and Intention tremor G25.2 [facility] [address] [place] [address] Apr, Degenerative disc disease at L5-S1 level M51.36 [facility] [address] [address] Mar, [facility] [address] [place] [id number] [place] [address] Mar, [facility] [address] [address] Mar, Degenerative disc disease at L5-S1 level M51.36 [facility] [address] [address] Feb, [facility] [address] [address] Feb, Degenerative disc disease at L5-S1 level M51.36 [facility] [address] [address] Feb, [facility] [address] [address] Jan, [facility] [address] [id number] [place] [address] Jan, Hyperlipidemia, unspecified hyperlipidemia type E78.5 ; Degenerative disc disease at L5-S1 level M51.36 ; Right hip pain M25.551 ; Piriformis syndrome, right G57.01 and Pre-diabetes R73.03 [place] [address] [place] [id number] [place] [address] Jan, Degenerative disc disease at L5-S1 level M51.36 [place] [address] [place] [id number] [place] [address] Jan, [place] [address] [address] Dec, Degenerative disc disease at L5-S1 level M51.36 ; Right hip pain M25.551 and Piriformis syndrome, right G57.01 [place] [address] [place] [id number] [place] [address] Dec, [place] [address] [place] [address] [id number] [place] [address] Dec, [place] [address] [place] [id number] [place] [address] Dec, Degenerative disc disease at L5-S1 level M51.36 [place] [address] [place] [address] [id number] [place] [address] November, [place] [address] [place] [address] [id number] [place] [address] November, Right hip pain M25.551 and Hyperlipidemia, unspecified hyperlipidemia type E78.5 [place] [address] [place] [id number] [place] [address] Aug, Acute right-sided low back pain without sciatica M54.5 and Oral lesion K13.70 [facility] [address] [id number] [place] [address] Jul, Left carpal tunnel syndrome G56.02 [facility] [address] [facility] [id number] [address] 05 Jun, 2016 [facility] [address] [facility] [id number] [place] [address] May, Abscess L02.91 and Cough R05 [facility] [address] [facility] [id number] [place] [address] May, [facility] [address] [facility] [id number] [address] May, [facility] [address] [facility] [id number] [place] [address] May, [facility] [address] [address] May, Carpal tunnel syndrome of left wrist G56.02 [facility] [address] [address] Apr, [facility] [address] [address] Apr, Acute non-recurrent maxillary sinusitis J01.00 [facility] [address] [address] 14 Oct, 2014 [facility] [address] [place] [id number] [address] 13 Oct, 2014 [facility] [address] [place] [id number] Sep, [facility] [address] [facility] [id number] [place] [address] 17 Sep, 2014 [facility] [address] [facility] [id number] Sep, [facility] [address] [place] [id number] [address] Sep, [facility] [address] [place] [id number] [address] May, [facility] [address] [address] May, [facility] [address] [facility] [id number] [place] [address] Apr, [facility] [address] [facility] [id number] [place] [address] Apr, [facility] [address] [facility] [id number] [place] [address] Feb, [facility] [address] [facility] [id number] [place] [address] Feb, [facility] [address] [place] [id number] Dec, [facility] [address] [facility] [id number] [place] [address] Dec, [facility] [address] [place] [id number] November, [facility] [address] [facility] [id number] [place] [address] November, IMMUNIZATIONS No Known Immunizations SOCIAL HISTORY Never Assessed REASON FOR VISIT Hydrocodone 2/6 PLAN OF CARE VITAL SIGNS MEDICATIONS Medication Instructions Dosage Frequency Start Date End Date Duration Status Hydrocodone-Acetaminophen 5-325 MG Orally 2 times a day 1 tablet as needed 12h 06 Aug, 2017 Active RESULTS No Results PROCEDURES No Known procedures INSTRUCTIONS MEDICATIONS ADMINISTERED No Known Medications MEDICAL (GENERAL) HISTORY Type Description Date Medical History borderline diabetes Medical History hyperlipidema
--- OUTSIDE RECORDS SUMMARY | 2018-12-18 18:01 | XMS REPORT ---
Author Author CALE UGALDE Organization [facility] Address [address] [place] [address] Care Team Providers Care Scrap Baller Name Role Phone CALE UGALDE Unavailable PROBLEMS Type Condition ICD9-CM Code QUI94-XR Code Onset Dates Condition Status SNOMED Code Problem Left carpal tunnel syndrome G56.02 Active 953762771690886 Problem Carpal tunnel syndrome of left wrist G56.02 Active 13481877 Problem Other chronic pain G89.29 Active 67230325 Problem Lumbago with sciatica, right side M54.41 Active 110190699 Problem Hyperlipidemia, unspecified hyperlipidemia type E78.5 Active 76402938 Problem Degenerative disc disease at L5-S1 level M51.36 Active 99977928 Problem Arthritis M19.90 Active 7884952 Problem Intention tremor G25.2 Active [id number] ALLERGIES No Information ENCOUNTERS Encounter Location Date Diagnosis [facility] [id number] [place] [address] Feb, [facility] [id number] [place] [address] Feb, [facility] [id number] [place] [address] Jan, [facility] [id number] [place] [address] Jan, [facility] [id number] [place] [address] Jan, [facility] [id number] [place] [address] Jan, [facility] [id number] [place] [address] Jan, Acute diarrhea R19.7 [facility] [address] [address] Jan, [facility] [id number] [place] [address] Jan, Degenerative disc disease at L5-S1 level M51.36 ; Lumbago with sciatica, right side M54.41 ; Skin tag L91.8 and BMI 40.0-44.9, adult Z68.41 [facility] [id number] [place] [address] Dec, Acute diarrhea R19.7 ; Impacted cerumen of both ears H61.23 ; Systemic antibiotic causing adverse effect in therapeutic use, initial encounter T36.95XA and BMI 40.0-44.9, adult Z68.41 [facility] [id number] [place] [address] Dec, [facility] [id number] [place] [address] Dec, [facility] [id number] [place] [address] November, [facility] [id number] [place] [address] Oct, [facility] [id number] [address] Oct, [facility] [id number] [place] [address] Oct, [facility] [address] [address] Oct, Lumbago with sciatica, right side M54.41 ; Degenerative disc disease at L5-S1 level M51.36 and BMI 40.0-44.9, adult Z68.41 [facility] [address] [address] Sep, Other chronic pain G89.29 [facility] [address] [address] Sep, Degenerative disc disease at L5-S1 level M51.36 [facility] [address] [place] [id number] Aug, Lumbago with sciatica, right side M54.41 ; Other chronic pain G89.29 and BMI 40.0- 44.9, adult Z68.41 [place] [id number] [place] [address] Aug, Degenerative disc disease at L5-S1 level M51.36 [place] [id number] [place] [address] Aug, Tooth abscess K04.7 [place] [id number] [place] [address] Jul, Degenerative disc disease at L5-S1 level M51.36 [place] [id number] [place] [address] Jun, [facility] [id number] [place] [address] Jun, Degenerative disc disease at L5-S1 level M51.36 [place] [id number] [place] [address] Jun, Degenerative disc disease at L5-S1 level M51.36 [place] [id number] [place] [address] May, Degenerative disc disease at L5-S1 level M51.36 [facility] [id number] [place] [address] Apr, Degenerative disc disease at L5-S1 level M51.36 ; Arthritis M19.90 and Intention tremor G25.2 [facility] [address] [place] [address] Apr, Degenerative disc disease at L5-S1 level M51.36 [place] [address], [place] [address] Mar, [facility] [address], [place] [address] Mar, [facility] [address], [place] [address] Mar, Degenerative disc disease at L5-S1 level M51.36 [facility] [id number], [place] [address] Feb, [facility] [address], [place] [address] Feb, Degenerative disc disease at L5-S1 level M51.36 [facility] [address], [place] [address] Feb, [facility] [address], [place] [address] Jan, [facility] [address], [place] [address] Jan, Hyperlipidemia, unspecified hyperlipidemia type E78.5 ; Degenerative disc disease at L5-S1 level M51.36 ; Right hip pain M25.551 ; Piriformis syndrome, right G57.01 and Pre-diabetes R73.03 [facility] [address], [place] [address] Jan, Degenerative disc disease at L5-S1 level M51.36 [facility] [address], [place] [address] Jan, [facility] [address], [place] [address] Dec, Degenerative disc disease at L5-S1 level M51.36 ; Right hip pain M25.551 and Piriformis syndrome, right G57.01 [facility] [address], [place] [address] Dec, [facility] [id number] [place] [address] Dec, [facility] [id number] [place] [address] Dec, Degenerative disc disease at L5-S1 level M51.36 [facility] [id number] [place] [address] November, [facility] [address] [address] November, Right hip pain M25.551 and Hyperlipidemia, unspecified hyperlipidemia type E78.5 [place] [address] [address] Aug, Acute right-sided low back pain without sciatica M54.5 and Oral lesion K13.70 [place] [id number] [place] [address] Jul, Left carpal tunnel syndrome G56.02 [facility] [id number] [place] [address] Jun, [facility] [id number] [place] [address] May, Abscess L02.91 and Cough R05 [facility] [id number] [place] [address] May, [facility] [id number] [place] [address] May, [facility] [id number] [place] [address] May, [facility] [id number] [place] [address] May, Carpal tunnel syndrome of left wrist G56.02 [facility] [id number] [place] [address] Apr, [facility] [id number], [place] [address] 07 Apr, 2016 Acute non-recurrent maxillary sinusitis J01.00 [facility] [address] [id number] [place] [address] 14 Oct, 2014 [facility] [address] [id number] [place] [address] 13 Oct, 2014 [facility] [address] [id number] Sep, [facility] [address] [id number] [address] Sep, [facility] [address] [id number] Sep, [facility] [address] [facility] [id number] [place] [address] Sep, [facility] [address] [facility] [id number], [place] [address] May, [facility] [address] [id number], [place] [address] May, [facility] [address] [facility] [id number], [place] [address] Apr, [facility] [address] [facility] [id number], [place] [address] Apr, [facility] [address] [facility] [id number], [place] [address] Feb, [facility] [address] [facility] [id number], [place] [address] Feb, [facility] [address] [place] [id number] Dec, [facility] [address] [facility] [id number], [place] [address] Dec, [facility] [address] [place] [id number] November, [facility] [address] [facility] [id number] [place] [address] November, IMMUNIZATIONS No Known Immunizations SOCIAL HISTORY Never Assessed REASON FOR VISIT Narcotic violation PLAN OF CARE VITAL SIGNS MEDICATIONS Unknown Medications RESULTS No Results PROCEDURES No Known procedures INSTRUCTIONS MEDICATIONS ADMINISTERED No Known Medications MEDICAL (GENERAL) HISTORY Type Description Date Medical History borderline diabetes Medical History hyperlipidema
--- OUTSIDE RECORDS SUMMARY | 2018-12-18 18:01 | XMS REPORT ---
Author Author CALE UGALDE Organization [facility] Address [address] [place] [address] Care Team Providers Care Sawmill Production Worker Name Role Phone CALE UGALDE Unavailable PROBLEMS Type Condition ICD9-CM Code KXG20-OU Code Onset Dates Condition Status SNOMED Code Problem Left carpal tunnel syndrome G56.02 Active 981571278229702 Problem Carpal tunnel syndrome of left wrist G56.02 Active 65159191 Problem Other chronic pain G89.29 Active 96521513 Problem Lumbago with sciatica, right side M54.41 Active 707969955 Problem Hyperlipidemia, unspecified hyperlipidemia type E78.5 Active 00116648 Problem Degenerative disc disease at L5-S1 level M51.36 Active 51413249 Problem Arthritis M19.90 Active 8410734 Problem Intention tremor G25.2 Active 29161049 ALLERGIES No Information ENCOUNTERS Encounter Location Date Diagnosis [facility] [id number] [place] [address] Feb, [facility] [id number] [place] [address] Jan, [facility] [id number] [place] [address] Jan, [facility] [id number] [place] [address] Jan, [facility] [id number] [place] [address] Jan, [facility] [id number] [place] [address] Jan, Acute diarrhea R19.7 [facility] [id number] [place] [address] Jan, [facility] [address], [place] [address] Jan, Degenerative disc disease at L5-S1 level M51.36 ; Lumbago with sciatica, right side M54.41 ; Skin tag L91.8 and BMI 40.0-44.9, adult Z68.41 [facility] [address] [place] [address] Dec, Acute diarrhea R19.7 ; Impacted cerumen of both ears H61.23 ; Systemic antibiotic causing adverse effect in therapeutic use, initial encounter T36.95XA and BMI 40.0-44.9, adult Z68.41 [facility] [id number] [place] [address] Dec, [facility] [id number] [place] [address] Dec, [facility] [id number] [place] [address] November, [facility] [id number] [place] [address] Oct, [facility] [id number] [place] [address] Oct, [facility] [id number], [place] [address] Oct, [facility] [id number] [place] [address] Oct, Lumbago with sciatica, right side M54.41 ; Degenerative disc disease at L5-S1 level M51.36 and BMI 40.0-44.9, adult Z68.41 [facility] [id number] [place] [address] Sep, Other chronic pain G89.29 [facility] [id number] [place] [address] Sep, Degenerative disc disease at L5-S1 level M51.36 [facility] [address] [place] [id number] Aug, Lumbago with sciatica, right side M54.41 ; Other chronic pain G89.29 and BMI 40.0- 44.9, adult Z68.41 [facility] [id number] [place] [address] Aug, Degenerative disc disease at L5-S1 level M51.36 [facility] [address] [address] Aug, Tooth abscess K04.7 [place] [address] [address] Jul, Degenerative disc disease at L5-S1 level M51.36 [place] [id number] [place] [address] Jun, [facility] [address] [address] Jun, Degenerative disc disease at L5-S1 level M51.36 [place] [address] [address] Jun, Degenerative disc disease at L5-S1 level M51.36 [place] [id number] [place] [address] May, Degenerative disc disease at L5-S1 level M51.36 [facility] [id number] [place] [address] Apr, Degenerative disc disease at L5-S1 level M51.36 ; Arthritis M19.90 and Intention tremor G25.2 [facility] [address] [address] Apr, Degenerative disc disease at L5-S1 level M51.36 [facility] [id number] [place] [address] Mar, [facility] [address], [place] [address] Mar, [facility] [address], [place] [address] Mar, Degenerative disc disease at L5-S1 level M51.36 [facility] [address], [place] [address] Feb, [facility] [id number] [place] [address] Feb, Degenerative disc disease at L5-S1 level M51.36 [facility] [id number], [place] [address] Feb, [facility] [id number], [place] [address] Jan, [facility] [id number] [place] [address] Jan, Hyperlipidemia, unspecified hyperlipidemia type E78.5 ; Degenerative disc disease at L5-S1 level M51.36 ; Right hip pain M25.551 ; Piriformis syndrome, right G57.01 and Pre-diabetes R73.03 [facility] [address], [place] [address] Jan, Degenerative disc disease at L5-S1 level M51.36 [facility] [address], [place] [address] Jan, [facility] [address], [place] [address] Dec, Degenerative disc disease at L5-S1 level M51.36 ; Right hip pain M25.551 and Piriformis syndrome, right G57.01 [facility] [address], [place] [address] Dec, [facility] [address], [place] [address] Dec, [facility] [id number] [place] [address] Dec, Degenerative disc disease at L5-S1 level M51.36 [place] [address] [address] November, [place] [id number] [place] [address] November, Right hip pain M25.551 and Hyperlipidemia, unspecified hyperlipidemia type E78.5 [place] [address] [address] Aug, Acute right-sided low back pain without sciatica M54.5 and Oral lesion K13.70 [place] [id number] [place] [address] Jul, Left carpal tunnel syndrome G56.02 [place] [address] [address] Jun, [place] [address] [address] May, Abscess L02.91 and Cough R05 [place] [address] [address] May, [place] [id number] [place] [address] May, [place] [id number] [place] [address] May, [place] [id number] [place] [address] May, Carpal tunnel syndrome of left wrist G56.02 [facility] [id number] [place] [address] Apr, [facility] [id number] [place] [address] Apr, Acute non-recurrent maxillary sinusitis J01.00 [facility] [address] [facility] [id number], [place] [address] Oct, [facility] [address] [facility] [id number], [place] [address] Oct, [place] [address] [facility] [id number] Sep, [facility] [address] [facility] [id number], [place] [address] Sep, [place] [address] [place] [id number] Sep, [facility] [address] [facility] [id number], [place] [address] Sep, [facility] [address] [facility] [id number], [place] [address] May, [facility] [address] [facility] [id number], [place] [address] May, [facility] [address] [facility] [id number], [place] [address] Apr, [facility] [address] [facility] [id number], [place] [address] Apr, [facility] [address] [facility] [id number], [place] [address] Feb, [facility] [id number], [place] [address] Feb, [place] [address] [place] [id number] Dec, [facility] [address] [facility] [id number], [place] [address] Dec, [place] [address] [place] [id number] November, [facility] [address] [facility] [id number], [place] [address] November, IMMUNIZATIONS No Known Immunizations SOCIAL HISTORY Never Assessed REASON FOR VISIT [employer] PLAN OF CARE VITAL SIGNS MEDICATIONS Unknown Medications RESULTS No Results PROCEDURES No Known procedures INSTRUCTIONS MEDICATIONS ADMINISTERED No Known Medications MEDICAL (GENERAL) HISTORY Type Description Date Medical History borderline diabetes Medical History hyperlipidema
--- OUTSIDE RECORDS SUMMARY | 2018-12-18 18:02 | XMS REPORT ---
Author Author CALE UGALDE Organization [facility] Address [address] [place] [address] Care Team Providers Care Rigging Up Worker Name Role Phone CALE UGALDE Unavailable PROBLEMS Type Condition ICD9-CM Code [id number] Code Onset Dates Condition Status SNOMED Code Problem Left carpal tunnel syndrome G56.02 Active 150878287801648 Problem Carpal tunnel syndrome of left wrist G56.02 Active 55399934 Problem Other chronic pain G89.29 Active 92199130 Problem Lumbago with sciatica, right side M54.41 Active 558235069 Problem Hyperlipidemia, unspecified hyperlipidemia type E78.5 Active 12358177 Problem Degenerative disc disease at L5-S1 level M51.36 Active 05965660 Problem Arthritis M19.90 Active 7490332 Problem Intention tremor G25.2 Active 19263883 ALLERGIES No Information ENCOUNTERS Encounter Location Date Diagnosis [place] [address] [address] November, [facility] [address] [id number] [place] [address] Oct, [facility] [id number] [place] [address] Oct, [facility] [address] [address] Oct, [facility] [address] [address] Oct, Lumbago with sciatica, right side M54.41 ; Degenerative disc disease at L5-S1 level M51.36 and BMI 40.0-44.9, adult Z68.41 [facility] [address] [address] Sep, Other chronic pain G89.29 [facility] [id number] [place] [address] Sep, Degenerative disc disease at L5-S1 level M51.36 [facility] [address] [place] [id number] Aug, Lumbago with sciatica, right side M54.41 ; Other chronic pain G89.29 and BMI 40.0- 44.9, adult Z68.41 [facility] [id number] [place] [address] Aug, Degenerative disc disease at L5-S1 level M51.36 [place] [address] [address] Aug, Tooth abscess K04.7 [facility] [id number] [place] [address] Jul, Degenerative disc disease at L5-S1 level M51.36 [facility] [id number] [place] [address] Jun, [facility] [address] [address] Jun, Degenerative disc disease at L5-S1 level M51.36 [facility] [id number] [place] [address] Jun, Degenerative disc disease at L5-S1 level M51.36 [facility] [id number] [place] [address] May, Degenerative disc disease at L5-S1 level M51.36 [facility] [id number] [place] [address] Apr, Degenerative disc disease at L5-S1 level M51.36 ; Arthritis M19.90 and Intention tremor G25.2 [facility] [id number] [place] [address] Apr, Degenerative disc disease at L5-S1 level M51.36 [facility] [address], [place] [address] Mar, [facility] [id number] [place] [address] Mar, [facility] [id number] [place] [address] Mar, Degenerative disc disease at L5-S1 level M51.36 [facility] [id number] [place] [address] Feb, [facility] [id number] [place] [address] Feb, Degenerative disc disease at L5-S1 level M51.36 [facility] [id number] [place] [address] Feb, [facility] [id number] [place] [address] Jan, [facility] [address] [place] [address] Jan, Hyperlipidemia, unspecified hyperlipidemia type E78.5 ; Degenerative disc disease at L5-S1 level M51.36 ; Right hip pain M25.551 ; Piriformis syndrome, right G57.01 and Pre-diabetes R73.03 [facility] [address], [place] [address] Jan, Degenerative disc disease at L5-S1 level M51.36 [facility] [address], [place] [address] Jan, [facility] [id number] [place] [address] Dec, Degenerative disc disease at L5-S1 level M51.36 ; Right hip pain M25.551 and Piriformis syndrome, right G57.01 [facility] [id number] [place] [address] Dec, [facility] [id number] [place] [address] Dec, [facility] [address] [address] Dec, Degenerative disc disease at L5-S1 level M51.36 [place] [address] [address] November, [place] [address] [address] November, Right hip pain M25.551 and Hyperlipidemia, unspecified hyperlipidemia type E78.5 [place] [address] [address] Aug, Acute right-sided low back pain without sciatica M54.5 and Oral lesion K13.70 [place] [address] [address] Jul, Left carpal tunnel syndrome G56.02 [place] [address] [id number] [place] [address] Jun, [place] [address] [address] May, Abscess L02.91 and Cough R05 [place] [address] [place] [id number] [place] [address] May, [facility] [address] [address] May, [facility] [id number] [place] [address] May, [place] [address] [address] [id number] [place] [address] May, Carpal tunnel syndrome of left wrist G56.02 [facility] [address] [address] Apr, [facility] [address] [id number] [place] [address] 07 Apr, 2016 Acute non-recurrent maxillary sinusitis J01.00 [facility] [address] [id number] [place] [address] 14 Oct, 2014 [facility] [address] [id number] [place] [address] Oct, [facility] [address] [place] [id number] Sep, [facility] [address] [id number] [place] [address] Sep, [facility] [address] [id number] Sep, [facility] [address] [id number] [place] [address] Sep, [facility] [address] [id number] [place] [address] May, [facility] [address] [id number] [place] [address] May, [facility] [address] [id number] [place] [address] Apr, [facility] [address] [id number], [place] [address] Apr, [facility] [address] [id number], [place] [address] Feb, [facility] [address] [id number] [place] [address] Feb, [facility] [address] [place] [id number] Dec, [facility] [address] [id number], [place] [address] Dec, [facility] [address] [place] [id number] November, [facility] [address] [facility] [id number], [place] [address] November, IMMUNIZATIONS No Known Immunizations SOCIAL HISTORY Never Assessed REASON FOR VISIT Hydrocodone- 05/08 PLAN OF CARE VITAL SIGNS MEDICATIONS Medication Instructions Dosage Frequency Start Date End Date Duration Status Hydrocodone-Acetaminophen 5-325 MG Orally 2 times a day 1 tablet as needed 12h 17 Apr, 2017 Active RESULTS No Results PROCEDURES No Known procedures INSTRUCTIONS MEDICATIONS ADMINISTERED No Known Medications MEDICAL (GENERAL) HISTORY Type Description Date Medical History borderline diabetes Medical History hyperlipidema
--- OUTSIDE RECORDS SUMMARY | 2018-12-18 18:02 | XMS REPORT ---
Author Author EMILIANO GILLILAND [facility] Address [address] [place] [address] Care Team Providers Care Dental Laboratory Technician Name Role Phone EMILIANO GILLILAND Unavailable PROBLEMS ALLERGIES No Information ENCOUNTERS IMMUNIZATIONS No Known Immunizations SOCIAL HISTORY No smoking Hx information available REASON FOR VISIT PLAN OF CARE VITAL SIGNS MEDICATIONS Unknown Medications RESULTS No Results PROCEDURES INSTRUCTIONS MEDICATIONS ADMINISTERED No Known Medications MEDICAL (GENERAL) HISTORY
--- OUTSIDE RECORDS SUMMARY | 2018-12-18 18:02 | XMS REPORT ---
Author Author EMILIANO GILLILAND [facility] Address [address] [place] [address] Care Team Providers Care Fighting Vehicle Systems Maintainer Name Role Phone EMILIANO GILLILAND Unavailable PROBLEMS ALLERGIES No Information ENCOUNTERS IMMUNIZATIONS No Known Immunizations SOCIAL HISTORY No smoking Hx information available REASON FOR VISIT PLAN OF CARE VITAL SIGNS MEDICATIONS Unknown Medications RESULTS No Results PROCEDURES INSTRUCTIONS MEDICATIONS ADMINISTERED No Known Medications MEDICAL (GENERAL) HISTORY
--- OUTSIDE RECORDS SUMMARY | 2018-12-18 18:02 | XMS REPORT ---
Author Author Migration, Doctor Organization [facility] Address Unknown Phone Unavailable Care Team Providers Care Pulmonologist Name Role Phone Migration, Doctor Unavailable Unavailable PROBLEMS Type Condition ICD9-CM Code NJO06-GZ Code Onset Dates Condition Status SNOMED Code Problem Left carpal tunnel syndrome G56.02 Active 675189919029230 Problem Degenerative disc disease at L5-S1 level M51.36 Active 45131281 Problem Hyperlipidemia, unspecified hyperlipidemia type E78.5 Active 71455992 Problem Hypertension I10 Active 39126663 Problem Carpal tunnel syndrome of left wrist G56.02 Active 51715798 Problem DDD (degenerative disc disease), lumbar M51.36 Active 08977473 Problem Intention tremor G25.2 Active 63715852 Problem Arthritis M19.90 Active 1333140 Problem Lumbago with sciatica, right side M54.41 Active 418224418 Problem Other chronic pain G89.29 Active 87373920 ALLERGIES No Information ENCOUNTERS Encounter Location Date Diagnosis [place] [address] [address] Aug, DDD (degenerative disc disease), lumbar M51.36 [facility] [id number] [place] [address] Jul, Hypertension I10 [facility] [id number] [place] [address] Jul, Hypertension I10 [facility] [id number] [place] [address] Jul, Lumbago with sciatica, right side M54.[address] [facility] [id number] [place] [address] Jan, [facility] [id number] [place] [address] Jan, Skin tag L91.8 [facility] [address], [place] [address] Jan, [facility] [id number] [place] [address] Jan, [facility] [address], [place] [address] Jan, Acute diarrhea R19.7 [facility] [id number] [place] [address] Jan, [facility] [id number] [place] [address] Jan, Degenerative disc disease at L5-S1 level M51.36 ; Lumbago with sciatica, right side M54.41 ; Skin tag L91.8 and BMI 40.0-44.9, adult Z68.41 [facility] [address] [place] [address] Dec, Acute diarrhea R19.7 ; Impacted cerumen of both ears H61.23 ; Systemic antibiotic causing adverse effect in therapeutic use, initial encounter T36.95XA and BMI 40.0-44.9, [address] [facility] [address], [place] [address] Dec, [facility] [address], [place] [address] Dec, Lumbago with sciatica, right side M54.41 [facility] [address], [place] [address] November, Degenerative disc disease at L5-S1 level M51.36 and Lumbago with sciatica, right side M54.41 [facility] [address], [place] [address] Oct, [facility] [address] [address] Oct, [facility] [address] [place] [address] Oct, [facility] [id number] [place] [address] Oct, Lumbago with sciatica, right side M54.41 ; Degenerative disc disease at L5-S1 level M51.36 and BMI 40.0-44.9, adult Z68.41 [facility] [id number] [place] [address] Sep, Other chronic pain G89.29 [facility] [id number] [place] [address] Sep, Degenerative disc disease at L5-S1 level M51.36 [facility] [address] [id number] Aug, Lumbago with sciatica, right side M54.41 ; Other chronic pain G89.29 and BMI 40.0- 44.9, adult Z68.41 [facility] [id number] [place] [address] Aug, Degenerative disc disease at L5-S1 level M51.36 [place] [id number] [place] [address] Aug, Tooth abscess K04.7 [facility] [address] [place] [id number] [place] [address] Jul, Degenerative disc disease at L5-S1 level M51.36 [facility] [address] [place] [address] Jun, [facility] [id number] [place] [address] Jun, Degenerative disc disease at L5-S1 level M51.36 [facility] [id number] [place] [address] Jun, Degenerative disc disease at L5-S1 level M51.36 [facility] [id number] [place] [address] May, Degenerative disc disease at L5-S1 level M51.36 [facility] [id number] [place] [address] Apr, Degenerative disc disease at L5-S1 level M51.36 ; Arthritis M19.90 and Intention tremor G25.2 [facility] [id number] [place] [address] Apr, Degenerative disc disease at L5-S1 level M51.36 [facility] [id number] [place] [address] Mar, [facility] [id number] [place] [address] Mar, [facility] [id number] [place] [address] Mar, Degenerative disc disease at L5-S1 level M51.36 [facility] [id number] [place] [address] Feb, [facility] [id number] [place] [address] Feb, Degenerative disc disease at L5-S1 level M51.36 [facility] [id number] [place] [address] Feb, [facility] [id number] [place] [address] Jan, [facility] [address] [place] [address] Jan, Hyperlipidemia, unspecified hyperlipidemia type E78.5 ; Degenerative disc disease at L5-S1 level M51.36 ; Right hip pain M25.551 ; Piriformis syndrome, right G57.01 and Pre-diabetes R73.03 [facility] [address], [place] [address] Jan, Degenerative disc disease at L5-S1 level M51[address]36 [facility] [id number] [place] [address] Jan, [facility] [id number] [place] [address] Dec, Degenerative disc disease at L5-S1 level M51.36 ; Right hip pain M25.551 and Piriformis syndrome, right G57.01 [facility] [id number] [place] [address] Dec, [facility] [id number] [place] [address] Dec, [facility] [id number] [place] [address] Dec, Degenerative disc disease at L5-S1 level M51.36 [place] [address] [address] November, [facility] [id number] [place] [address] November, Right hip pain M25.551 and Hyperlipidemia, unspecified hyperlipidemia type E78.5 [place] [address] [id number] [place] [address] Aug, Acute right-sided low back pain without sciatica M54.5 and Oral lesion K13.70 [place] [id number] [place] [address] Jul, Left carpal tunnel syndrome G56.02 [facility] [address] [place] [place] [id number] [place] [address] Jun, [place] [address] [address] May, Abscess L02.91 and Cough R05 [place] [id number] [place] [address] May, [place] [address] [id number], [place] [address] [address], [address] [facility] [address] [facility] [id number], [place] [address] 07 May, 2016 [facility] [address] [facility] [id number], [place] [address] 04 May, 2016 Carpal tunnel syndrome of left wrist G56.02 [facility] [address] [facility] [id number], [place] [address] 11 Apr, 2016 [facility] [address] [facility] [id number], [place] [address] 07 Apr, 2016 Acute non-recurrent maxillary sinusitis J01.00 [facility] [address] [facility] [id number], [place] [address] 14 Oct, 2014 [facility] [address] [facility] [id number], [place] [address] 13 Oct, 2014 [facility] [address] [id number] 17 Sep, 2014 [facility] [address] [facility] [id number], [place] [address] 17 Sep, 2014 [facility] [address] [id number] 10 Sep, 2014 [facility] [address] [facility] [id number], [place] [address] 10 Sep, 2014 [facility] [address] [facility] [id number], [place] [address] May, [facility] [address] [facility] [id number], [place] [address] May, [facility] [address] [facility] [id number], [place] [address] Apr, [facility] [address] [facility] [id number], [place] [address] 07 Apr, 2014 [facility] [address] [facility] [id number], [place] [address] Feb, [facility] [address] [facility] [id number] [place] [address] Feb, [facility] [address] [place] [id number] Dec, [facility] [address] [facility] [id number], [place] [address] Dec, [facility] [address] [id number] November, [facility] [address] [facility] [id number], [place] [address] November, IMMUNIZATIONS No Known Immunizations SOCIAL HISTORY Never Assessed REASON FOR VISIT EMR-[facility] PLAN OF CARE VITAL SIGNS MEDICATIONS Medication Instructions Dosage Frequency Start Date End Date Duration Status Bactrim DS 800-160 mg take 1 tablet by oral route every 12 hours for 5 days for 10 days Dec, Active amitriptyline 100 mg 1 tablet by Oral route 1 time per day November, Active RESULTS No Results PROCEDURES No Known procedures INSTRUCTIONS MEDICATIONS ADMINISTERED No Known Medications MEDICAL (GENERAL) HISTORY Type Description Date Medical History borderline diabetes Medical History hyperlipidema
--- OUTSIDE RECORDS SUMMARY | 2018-12-18 18:04 | XMS REPORT ---
Author Author CALE UGALDE Organization [facility] Address [address] [place] [address] Care Team Providers Care Investment Manager Name Role Phone CALE UGALDE Unavailable PROBLEMS Type Condition ICD9-CM Code [id number] Code Onset Dates Condition Status SNOMED Code Problem Left carpal tunnel syndrome G56.02 Active 871580153839916 Problem Carpal tunnel syndrome of left wrist G56.02 Active 34419818 Problem Other chronic pain G89.29 Active 11992061 Problem Lumbago with sciatica, right side M54.41 Active 774579233 Problem Hyperlipidemia, unspecified hyperlipidemia type E78.5 Active 68689445 Problem Degenerative disc disease at L5-S1 level M51.36 Active 12006499 Problem Arthritis M19.90 Active 5291672 Problem Intention tremor G25.2 Active 28154246 ALLERGIES No Information ENCOUNTERS Encounter Location Date Diagnosis [place] [id number] [place] [phone] Dec, [facility] [id number] [place] [address] Dec, [facility] [id number] [place] [address] November, [facility] [id number] [place] [address] Oct, [facility] [id number] [place] [address] Oct, [facility] [id number] [place] [address] Oct, [facility] [id number] [place] [address] Oct, Lumbago with sciatica, right side M54.41 ; Degenerative disc disease at L5-S1 level M51.36 and BMI 40.0-44.9, adult Z68.41 [facility] [id number] [place] [address] Sep, Other chronic pain G89.29 [facility] [id number] [place] [address] Sep, Degenerative disc disease at L5-S1 level M51.36 [facility] [address] [place] [id number] Aug, Lumbago with sciatica, right side M54.41 ; Other chronic pain G89.29 and BMI 40.0- 44.9, adult Z68.41 [place] [id number] [place] [address] Aug, Degenerative disc disease at L5-S1 level M51.36 [place] [address] [address] Aug, Tooth abscess K04.7 [facility] [address] [address] Jul, Degenerative disc disease at L5-S1 level M51.36 [facility] [id number] [place] [address] Jun, [place] [id number] [place] [address] Jun, Degenerative disc disease at L5-S1 level M51.36 [facility] [id number] [place] [address] Jun, Degenerative disc disease at L5-S1 level M51.36 [facility] [id number] [place] [address] May, Degenerative disc disease at L5-S1 level M51.36 [facility] [id number] [place] [address] Apr, Degenerative disc disease at L5-S1 level M51.36 ; Arthritis M19.90 and Intention tremor G25.2 [facility] [id number] [place] [address] Apr, Degenerative disc disease at L5-S1 level M51.36 [facility] [id number] [place] [address] Mar, [facility] [id number] [place] [address] Mar, [facility] [id number] [place] [address] Mar, Degenerative disc disease at L5-S1 level M51.36 [facility] [id number] [place] [address] Feb, [facility] [id number] [place] [address] Feb, Degenerative disc disease at L5-S1 level M51.36 [facility] [id number] [place] [address] Feb, [facility] [id number] [place] [address] Jan, [facility] [id number] [place] [address] Jan, Hyperlipidemia, unspecified hyperlipidemia type E78.5 ; Degenerative disc disease at L5-S1 level M51.36 ; Right hip pain M25.551 ; Piriformis syndrome, right G57.01 and Pre-diabetes R73.03 [facility] [id number] [place] [address] Jan, Degenerative disc disease at L5-S1 level M51.36 [facility] [id number] [address] Jan, [facility] [id number] [place] [address] Dec, Degenerative disc disease at L5-S1 level M51.36 ; Right hip pain M25.551 and Piriformis syndrome, right G57.01 [place] [id number] [place] [address] Dec, [place] [id number] [place] [address] Dec, [facility] [address] [address] Dec, Degenerative disc disease at L5-S1 level M51.36 [place] [address] [address] November, [place] [address] [address] November, Right hip pain M25.551 and Hyperlipidemia, unspecified hyperlipidemia type E78.5 [place] [address] [address] Aug, Acute right-sided low back pain without sciatica M54.5 and Oral lesion K13.70 [place] [id number] [place] [address] Jul, Left carpal tunnel syndrome G56.02 [place] [id number] [place] [address] Jun, [place] [address] [address] May, Abscess L02.91 and Cough R05 [place] [id number] [place] [address] May, [place] [address] [address] May, [place] [id number] [place] [address] May, [place] [address] [address] May, Carpal tunnel syndrome of left wrist G56.02 [facility] [address] [id number] [place] [address] Apr, [facility] [address] [id number] [place] [address] 07 Apr, 2016 Acute non-recurrent maxillary sinusitis J01.00 [facility] [address] [id number] [place] [address] 14 Oct, 2014 [facility] [address] [id number] [place] [address] Oct, [facility] [address] [place] [id number] Sep, [facility] [address] [facility] [id number] [place] [address] Sep, [facility] [address] [place] [id number] Sep, [facility] [address] [id number] [place] [address] Sep, [facility] [address] [id number] [place] [address] May, [facility] [address] [id number] [place] [address] May, [facility] [address] [id number] [place] [address] Apr, [facility] [address] [id number] [place] [address] Apr, [facility] [address] [id number] [place] [address] Feb, [facility] [address] [id number] [place] [address] Feb, [employer] [facility] [employer] [facility] [address] [place] [id number] Dec, [facility] [address] [facility] [id number] [place] [address] Dec, [facility] [address] [place] [id number] November, [facility] [address] [facility] [id number] [place] [address] November, IMMUNIZATIONS No Known Immunizations SOCIAL HISTORY Never Assessed REASON FOR VISIT Hydrocodone 07/31 PLAN OF CARE VITAL SIGNS MEDICATIONS Medication Instructions Dosage Frequency Start Date End Date Duration Status Hydrocodone-Acetaminophen 5-325 MG Orally 2 times a day 1 tablet as needed 12h 09 Jul, 2017 Active RESULTS No Results PROCEDURES No Known procedures INSTRUCTIONS MEDICATIONS ADMINISTERED No Known Medications MEDICAL (GENERAL) HISTORY Type Description Date Medical History borderline diabetes Medical History hyperlipidema
--- OUTSIDE RECORDS SUMMARY | 2018-12-18 18:04 | XMS REPORT | Continuity of Care Document ---
Author Organization Unknown Address Unknown Allergies Active Description Code Type Severity Reaction Onset Reported/Identified Relationship to Patient Clinical Status Yes No Known Drug Allergies [id number] Drug Allergy Unknown N/A 09/17/2016 Medications There [...] Ot F17.210 NICOTINE DEPENDENCE, CIGARETTES, UNCOMPL 09/17/2016 CUBA SWARTZ, BOLA T Ot M25.532 PAIN IN LEFT WRIST [...] BRINK MD Ot N50.812 LEFT TESTICULAR PAIN 01/05/2018 CYNTHIA SAWANT MD Ot E78.00 PURE HYPERCHOLESTEROLEMIA, UNSPECIFIED 01/05/2018 CYNTHIA SAWANT MD Ot F17.210 NICOTINE DEPENDENCE, CIGARETTES, UNCOMPL 01/05/2018 CYNTHIA SAWANT MD Ot K02.9 DENTAL CARIES, UNSPECIFIED 01/05/2018 CYNTHIA SAWANT MD Ot K08.89 OTHER SPECIFIED DISORDERS OF TEETH AND S 01/07/2018 CYNTHIA SAWANT MD Ot E78.00 PURE HYPERCHOLESTEROLEMIA, UNSPECIFIED 01/07/2018 CYNTHIA SAWANT MD Ot F17.210 NICOTINE DEPENDENCE, CIGARETTES, UNCOMPL 01/07/2018 CYNTHIA SAWANT MD Ot K02.9 DENTAL CARIES, UNSPECIFIED 01/07/2018 CYNTHIA SAWANT MD Ot K08.89 OTHER SPECIFIED DISORDERS OF TEETH AND S 08/12/2018 CALE UGALDE MD Ot M47.816 SPONDYLOSIS W/O MYELOPATHY OR RADICULOPA 08/12/2018 CALE UGALDE MD Ot M48.07 SPINAL STENOSIS, LUMBOSACRAL REGION 08/12/2018 CALE UGALDE MD Ot M51.16 INTERVERTEBRAL DISC DISORDERS W RADICULO Procedures There is no data. Results Test [...] gravity of urine by test strip 1.015 1.016-1.022 Urine protein assay by test strip, semi-quantitative [...] sediment leukocyte count by microscopy (number/high power field) RARE NRG Bacteria detection in urine sediment [...] - 02/15/17 11:42 TSH 1.470 uIU/mL 0.450-4.500 CULTURE, STOOL - 01/28/18 11:56 SALMONELLA AND SHIGELLA, CULTURE SEE NOTE NRG STOOL (C-DIFF) - 01/28/18 11:56 CLOSTRIDIUM DIFFICILE TOXIN/GDH W/REFL TO PCR SEE NOTE NRG Encounters ACCT No. Visit Date/Time Discharge Status Pt. Type Provider Facility Loc./Unit Complaint [id number] 10/06/2014 09:27:00 10/06/2014 23:59:59 CLS Outpatient MYCHAL MONDRAGON APRN [id number] 05/06/2014 06:45:00 05/06/2014 23:59:59 CLS Outpatient MYCHAL MONDRAGON APRN [id number] 03/03/2014 10:24:00 03/03/2014 23:59:59 CLS Outpatient MYCHAL MONDRAGON APRN [id number] 12/30/2013 09:11:00 12/30/2013 23:59:59 CLS Outpatient MYCHAL MONDRAGON APRN [id number] 12/16/2013 09:05:00 12/16/2013 23:59:59 CLS Outpatient MYCHAL MONDRAGON APRN [id number] 09/29/2016 10:10:00 Document Registration [id number] 02/16/2017 08:39:00 Document Registration [id number] 07/31/2018 08:40:00 07/31/2018 23:59:59 CLS Outpatient CALE UGALDE [facility] [id number] 01/28/2018 11:20:00 Document Registration [id number] 09/29/2016 10:10:00 Document Registration [id number] 08/09/2018 06:52:00 08/09/2018 23:59:59 CLS Outpatient CALE UGALDE MD [facility] RAD LUMBAGO W/ SCIATICA RT SIDE [id number] 01/05/2018 20:55:00 01/05/2018 21:19:00 DIS Emergency CYNTHIA SAWANT MD [facility] ER DENTAL PAIN [id number] 11/08/2016 13:30:00 11/08/2016 23:59:59 CLS Outpatient KAMINI GALLEGOS DO [facility] RAD SCIATICA NOT IMPROVING [id number] 09/27/2016 04:49:00 09/27/2016 06:59:00 DIS Emergency BOLA BRINK MD [facility] ER SHARP PAIN IN TESTICAL [id number] 09/17/2016 16:14:00 09/17/2016 16:53:00 DIS Emergency BOLA BRINK MD [facility] ER R HIP AND L WRIST PAIN
[2018-12-18 18:26] LABS: BASOPHILS # (AUTO) 0.1 10^3/uL (0.0-0.1); BASOPHILS % (AUTO) 0 % (0-10); EOSINOPHILS # (AUTO) 0.6 10^3/uL (0.0-0.3); EOSINOPHILS % (AUTO) 5 % (0-10); HEMATOCRIT 42 % (40-54); HEMOGLOBIN 14.1 G/DL (13.3-17.7); LYMPHOCYTES # (AUTO) 3.4 X 10^3 (1.0-4.0); LYMPHOCYTES % (AUTO) 29 % (12-44); MEAN CORPUSCULAR HEMOGLOBIN 27 PG (25-34); MEAN CORPUSCULAR HGB CONC 34 G/DL (32-36); MEAN CORPUSCULAR VOLUME 80 FL (80-99); MEAN PLATELET VOLUME 9.4 FL (7.4-10.4); MONOCYTES # (AUTO) 0.9 X 10^3 (0.0-1.0); MONOCYTES % (AUTO) 8 % (0-12); NEUTROPHILS # (AUTO) 6.6 X 10^3 (1.8-7.8); NEUTROPHILS % (AUTO) 58 % (42-75); PLATELET COUNT 359 10^3/uL (130-400); RED CELL DISTRIBUTION WIDTH 14.9 % (10.0-14.5); WHITE BLOOD COUNT 11.5 10^3/uL (4.3-11.0)
[2018-12-18] MEDS ORDERED: NS IV 1000 ML 1,000 ML IV SCH (18:30)
[2018-12-18 18:45] LABS: BUN/CREATININE RATIO 15; CARBON DIOXIDE 22 MMOL/L (21-32); CHLORIDE 112 MMOL/L (98-107); CREATININE SERUM 0.93 MG/DL (0.60-1.30); GFR ESTIMATED > 60; POTASSIUM 3.3 MMOL/L (3.6-5.0); SODIUM 145 MMOL/L (135-145)
[2018-12-18] MEDS ORDERED: IOHEXOL 350 MG/ML 100 ML (OMNIPAQUE 350) VIAL IV ONE (18:45)
[2018-12-18] MEDS ORDERED: NS 100 ML (IVPB) BAG IV ONE (18:45)
[2018-12-18] MEDS ORDERED: HOLD METFORMIN - RECEIVED CONTRAST 20 ML VIAL IV SCH (18:45)
[2018-12-18 18:46] LABS: ALANINE AMINOTRANSFERASE 20 U/L (0-55); ALBUMIN 4.1 GM/DL (3.2-4.5); ALKALINE PHOSPHATASE 115 U/L (40-136); AMYLASE 40 U/L (25-125); BILIRUBIN,TOTAL 0.2 MG/DL (0.1-1.0); CALCIUM 9.2 MG/DL (8.5-10.1); GLUCOSE 140 MG/DL (70-105); LIPASE 24 U/L (8-78); TOTAL PROTEIN 7.4 GM/DL (6.4-8.2)
--- NOTE | 2018-12-18 19:27 | Diagnostic Imaging Report ---
PROCEDURE: CT abdomen and pelvis with contrast. TECHNIQUE: Multiple contiguous axial images were obtained through the abdomen and pelvis after administration of intravenous contrast. Auto Exposure Controls were utilized during the CT exam to meet ALARA standards for radiation dose reduction. INDICATION: Right lower quadrant pain with nausea and diarrhea. Comparison is made with prior examination from 09/27/16. FINDINGS: The heart size is normal. There is minimal dependent atelectasis in the lung bases. The liver is normal in size without focal lesions. Gallbladder is contracted. Thre is no biliary duct dilatation. Spleen is normal. Pancreas and adrenal glands are unremarkable. Kidneys are normal in appearance. Aorta is nonaneurysmal. Bowel gas pattern is nonspecific. The appendix is normal. There is no ascites. There is no free air. There are no focal inflammatory changes. There is no pelvic mass, adenopathy or free fluid. Bladder is unremarkable. There are mild degenerative changes in the spine. IMPRESSION: No acute abnormality in the abdomen or pelvis. Specifically, the appendix is normal. There is no evidence of obstructive uropathy or other focal inflammatory process. Dictated by: Dictated on workstation # [id number]
[2018-12-18 19:43] LABS: BILIRUBIN,URINE NEGATIVE (NEGATIVE); CLARITY,URINE CLEAR; COLOR,URINE YELLOW; GLUCOSE, URINE (UA) NEGATIVE (NEGATIVE); KETONES,URINE NEGATIVE (NEGATIVE); LEUKOCYTE ESTERASE ,URINE 1+ (NEGATIVE); NITRITE,URINE NEGATIVE (NEGATIVE); PH,URINE 6 (5-9); PROTEIN,URINE 2+ (NEGATIVE); UROBILINOGEN,URINE NORMAL (NORMAL)
[2018-12-18 19:57] LABS: BACTERIA,URINE NEGATIVE /HPF; RBC,URINE >100 /HPF; SQUAMOUS EPITHELIAL CELL,UR 0-2 /HPF; WBC,URINE 0-2 /HPF
--- NOTE | 2018-12-18 20:14 | ED Abdominal Pain ---
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 STATES DIARRHEA FOR A COUPLE DAYS. Sepsis Screen: No Definite Risk Source of Information: Patient Exam Limitations: No Limitations History of Present Illness Date Seen by Provider: December 18, 2018 Time Seen by Provider: 18:12 Initial Comments 48-year-old male who presents to the emergency room with complaints of sharp right lower quadrant abdominal pain that started 40 minutes prior to arrival but has since subsided. He reports that he has had diarrhea for the past 2 days. He denies nausea, vomiting, diarrhea. Timing/Duration: 1-2 Days Location: RLQ Radiation: No Radiation Associated Symptoms: Denies Symptoms Allergies and Home Medications Allergies Coded Allergies: No Known Drug Allergies (Unverified , 09/17/16) Home Medications Amoxicillin 500 Mg Capsule, 500 MG PO TID Prescribed by: CYTNHIA SAWANT on 01/05/182110 Patient Home Medication List Home Medication List Reviewed: Yes Review of Systems Review of Systems Constitutional: see HPI; No chills, No fever Gastrointestinal: See HPI, Abdominal Pain All Other Systems Reviewed Negative Unless Noted: Yes Past Saiyeda-Sewjrk-Rdpzxd Hx Past Med/Social Hx: Reviewed Nursing Past Med/Soc Hx Patient Social History Alcohol Use: Denies Use Recreational Drug Use: No Smoking Status: Current Everyday Smoker Type Used: Cigarettes 2nd Hand Smoke Exposure: No Recent Foreign Travel: No Contact w/Someone Who Travel: No Recent Infectious Disease Expo: No Recent Hopitalizations: No Immunizations Up To Date Tetanus Booster (TDap): Unknown Seasonal Allergies Seasonal Allergies: No Past Medical History Surgeries: No Respiratory: No Cardiac: Yes High Cholesterol, Hypertension Neurological: No Reproductive Disorders: No Genitourinary: No Gastrointestinal: No Musculoskeletal: Yes (carpal tunnel syndrome, sciatica) Arthritis, Chronic Back Pain Endocrine: Yes (borderline diabetes) HEENT: No Cancer: No Psychosocial: No Integumentary: No Blood Disorders: No Family Medical History Reviewed Nursing Family Hx Physical Exam Vital Signs Vital Signs - First Documented 12/18/18 18:15 Temp 97.6 Pulse 74 Resp 20 B/P (MAP) 162/107 (125) Pulse Ox 99 O2 Delivery Room Air Capillary Refill : Less Than 3 Seconds Height/Weight/BMI Height: 5'8" Weight: 270lbs. oz. 122.169787ng; BMI Method:Stated General Appearance: WD/WN, no apparent distress Respiratory: chest non-tender, lungs clear, normal breath sounds, no respiratory distress, no accessory muscle use Cardiovascular: normal peripheral pulses, regular rate, rhythm, no edema, no gallop, no JVD, no murmur Gastrointestinal: normal bowel sounds, soft, no organomegaly, no pulsatile mass, tenderness (right lower quadrant tenderness) Extremities: normal capillary refill Neurologic/Psychiatric: alert, normal mood/affect, oriented x 3 Skin: normal color, warm/dry Progress/Results/Core Measures Results/Orders Lab Results Laboratory Tests Test 12/18/18 18:20 12/18/18 19:35 Range/Units White Blood Count 11.5 H 4.3-11.0 10^3/uL Red Blood Count 5.25 4.35-5.85 10^6/uL Hemoglobin 14.1 13.3-17.7 G/DL Hematocrit 42 40-54 % Mean Corpuscular Volume 80 80-99 FL Mean Corpuscular Hemoglobin 27 25-34 PG Mean Corpuscular Hemoglobin Concent 34 32-36 G/DL Red Cell Distribution Width 14.9 H 10.0-14.5 % Platelet Count 359 130-400 10^3/uL Mean Platelet Volume 9.4 7.4-10.4 FL Neutrophils (%) (Auto) 58 42-75 % Lymphocytes (%) (Auto) 29 12-44 % Monocytes (%) (Auto) 8 0-12 % Eosinophils (%) (Auto) 5 0-10 % Basophils (%) (Auto) 0 0-10 % Neutrophils # (Auto) 6.6 1.8-7.8 X 10^3 Lymphocytes # (Auto) 3.4 1.0-4.0 X 10^3 Monocytes # (Auto) 0.9 0.0-1.0 X 10^3 Eosinophils # (Auto) 0.6 H 0.0-0.3 10^3/uL Basophils # (Auto) 0.1 0.0-0.1 10^3/uL Sodium Level 145 135-145 MMOL/L Potassium Level 3.3 L 3.6-5.0 MMOL/L Chloride Level 112 H 98-107 MMOL/L Carbon Dioxide Level 22 21-32 MMOL/L Anion Gap 11 5-14 MMOL/L Blood Urea Nitrogen 14 7-18 MG/DL Creatinine 0.93 0.60-1.30 MG/DL Estimat Glomerular Filtration Rate > 60 BUN/Creatinine Ratio 15 Glucose Level 140 H 70-105 MG/DL Calcium Level 9.2 8.5-10.1 MG/DL Corrected Calcium 9.1 8.5-10.1 MG/DL Total Bilirubin 0.2 0.1-1.0 MG/DL Aspartate Amino Transf (AST/SGOT) 17 5-34 U/L Alanine Aminotransferase (ALT/SGPT) 20 0-55 U/L Alkaline Phosphatase 115 40-136 U/L Total Protein 7.4 6.4-8.2 GM/DL Albumin 4.1 3.2-4.5 GM/DL Amylase Level 40 25-125 U/L Lipase 24 8-78 U/L Urine Color YELLOW Urine Clarity CLEAR Urine pH 6 5-9 Urine Specific [place] 1.015 L 1.016-1.022 Urine Protein 2+ H NEGATIVE Urine Glucose (UA) NEGATIVE NEGATIVE Urine Ketones NEGATIVE NEGATIVE Urine Nitrite NEGATIVE NEGATIVE Urine Bilirubin NEGATIVE NEGATIVE Urine Urobilinogen NORMAL NORMAL MG/DL Urine Leukocyte Esterase 1+ H NEGATIVE Urine RBC (Auto) 5+ H NEGATIVE Urine RBC >100 H /HPF Urine WBC 0-2 /HPF Urine Squamous Epithelial Cells 0-2 /HPF Urine Crystals NONE /LPF Urine Bacteria NEGATIVE /HPF Urine Casts NONE /LPF Urine Mucus SMALL H /LPF Urine Culture Indicated NO My Orders Orders - ДМИТРИЙ KITCHEN Comprehensive Metabolic Panel (12/18/18 18:12) Lipase (12/18/18 18:12) Amylase (12/18/18 18:12) Ua Culture If Indicated (12/18/18 18:12) Ed Iv/Invasive Line Start (12/18/18 18:12) Cbc With Automated Diff (12/18/18 18:12) Ns Iv 1000 Ml (Sodium Chloride 0.9%) (12/18/18 18:30) Ct Abdomen/Pelvis W (12/18/18 18:32) Iohexol Injection (Omnipaque 350 Mg/Ml 1 (12/18/18 18:45) Received Contrast (Hold Metformin- Contr (12/18/18 18:45) Ns (Ivpb) (Sodium Chloride 0.9% Ivpb Bag (12/18/18 18:45) Vital Signs/I&O 12/18/18 12/18/18 18:15 20:21 Temp 97.6 97.6 Pulse 74 72 Resp 20 20 B/P (MAP) 162/107 (125) 145/105 (118) Pulse Ox 99 99 O2 Delivery Room Air Room Air Blood Pressure Mean: 125 Progress Progress Note : Time: 20:11 Progress Note I have seen and evaluated the patient. He remains pain-free at this time. I do believe that he passed a stone given the large amount of red blood cells in his urine. He agrees with plan of care, plans for discharge, return precautions were given. Departure Impression Primary Impression: passed kidney stone Disposition: HOME, SELF-CARE Condition: Stable/Unchanged Departure-Patient Inst. Decision time for Depature: 20:11 Referrals: CALE UGALDE MD (PCP/Family) Primary Care Physician Patient Instructions: Kidney Stones (DC) Add. Discharge Instructions: You may use ibuprofen and Tylenol as directed by the bottle for pain relief. Follow-up with her primary care provider within 1 week for recheck. Be sure to drink plenty of fluids to help flush out your urinary tract. Return back to the emergency room for worsening symptoms or concerns as needed. All discharge instructions reviewed with patient and/or family. Voiced understanding. ДМИТРИЙ KITCHEN December 18, 2018 20:13
[2018-12-18 20:21] VITALS: BP 145/105
== END 2018-12-18 20:21 | disposition home or self-care (01) ==
LOC: EDUNIT# 17:52 → ER 17:53
DX: N20.0 Calculus of kidney (principal); E78.00 Pure hypercholesterolemia, unspecified; I10 Essential (primary) hypertension; F17.210 Nicotine dependence, cigarettes, uncomplicated
CPT/HCPCS: 36415; 74177; 80053; 81000; 82150; 83690; 85025; 96360

== ENCOUNTER 2019-08-30 11:49 | Emergency (ER) | payer SELFPAY ==
[~2019-08-30] VITALS: Ht 172 cm; Wt 117.9 kg
[2019-08-30] MEDS ORDERED: NS IV 1000 ML 1,000 ML IV SCH (11:53)
[2019-08-30] MEDS ORDERED: KETOROLAC 30 MG/ML VIAL IVP ONE (12:00)
[2019-08-30] MEDS ORDERED: fentaNYL INJECTION 100 MCG/2 ML AMP IVP ONE (12:00)
--- NOTE | 2019-08-30 12:04 | ED GU-Male ---
General Stated Complaint: ABD PAIN History of Present Illness Date Seen by Provider: Aug 30, 2019 Time Seen by Provider: 11:50 Initial Comments 49-year-old -[place] male comes in in significant pain related to right lower abdomen and flank. He has had recurrent nephrolithiasis in the past. He reports his pain began approximately 30 minutes prior to arrival. He has not taken anything for pain. He does report mild nausea, no vomiting. Timing/Duration: just prior to arrival Severity/Quality: severe Location: RLQ, right flank Radiation: none Associated Symptoms: abdominal pain, dysuria, lower back pain, nausea/vomiting Allergies and Home Medications Allergies Coded Allergies: No Known Drug Allergies (Unverified , 09/17/16) Home Medications Amoxicillin 500 Mg Capsule, 500 MG PO TID Prescribed by: CYNTHIA SAWANT on 01/05/182110 Ciprofloxacin HCl 500 Mg Tablet, 500 MG PO BID Prescribed by: SHIRLEY REID on 08/30/19 1311 Patient Home Medication List Home Medication List Reviewed: Yes Review of Systems Review of Systems Constitutional: no symptoms reported, see HPI Gastrointestinal: RLQ (Right flank), see HPI Genitourinary: see HPI, flank pain All Other Systemes Reviewed Negative Unless Noted: Yes Past Xyklnyc-[id number]-[id number] Hx Past Med/Social Hx: Reviewed Nursing Past Med/Soc Hx Patient Social History Alcohol Use: Denies Use Recreational Drug Use: Yes Drug of Choice: methamphetamine Smoking Status: Current Everyday Smoker Type Used: Cigarettes 2nd Hand Smoke Exposure: No Recent Foreign Travel: No Contact w/Someone Who Travel: No Recent Hopitalizations: No Immunizations Up To Date Tetanus Booster (TDap): Unknown Seasonal Allergies Seasonal Allergies: No Past Medical History Surgeries: No Respiratory: No Cardiac: Yes High Cholesterol, Hypertension Neurological: No Reproductive Disorders: No Genitourinary: No Gastrointestinal: No Musculoskeletal: Yes (carpal tunnel syndrome, sciatica) Arthritis, Chronic Back Pain Endocrine: Yes (borderline diabetes) HEENT: No Cancer: No Psychosocial: No Integumentary: No Blood Disorders: No Physical Exam Vital Signs Vital Signs - First Documented 08/30/19 11:55 Temp 37.0 Pulse 91 Resp 16 B/P (MAP) 186/96 (126) Pulse Ox 96 O2 Delivery Room Air Capillary Refill : Height, Weight, BMI Height: 5'8" Weight: 270lbs. oz. 122.614961jh; BMI Method:Stated General Appearance: WD/WN, moderate distress (secondary to pain) Neck: non-tender, full range of motion, supple, normal inspection Cardiovascular: normal peripheral pulses, regular rate, rhythm Respiratory: chest non-tender, lungs clear, normal breath sounds Gastrointestinal: normal bowel sounds, soft, tenderness (right lower quadrant) Back: normal inspection, CVA tenderness (R) (severe) Neurologic/Psychiatric: no motor/sensory deficits, alert, normal mood/affect, oriented x 3 Skin: normal color, warm/dry Progress/Results/Core Measures Suspected Sepsis SIRS Temperature: Pulse: Respiratory Rate: Blood Pressure / Mean: Results/Orders Lab Results Laboratory Tests Test 08/30/19 12:10 Range/Units Urine Color ORANGE Urine Clarity CLOUDY Urine pH 5.5 5-9 Urine Specific Ubly >=1.030 1.016-1.022 Urine Protein 1+ H NEGATIVE Urine Glucose (UA) NEGATIVE NEGATIVE Urine Ketones NEGATIVE NEGATIVE Urine Nitrite NEGATIVE NEGATIVE Urine Bilirubin 1+ H NEGATIVE Urine Urobilinogen 0.2 < = 1.0 MG/DL Urine Leukocyte Esterase NEGATIVE NEGATIVE Urine RBC (Auto) 3+ H NEGATIVE Urine RBC TNTC H /HPF Urine WBC 2-5 /HPF Urine Squamous Epithelial Cells 0-2 /HPF Urine Crystals NONE /LPF Urine Bacteria FEW H /HPF Urine Casts NONE /LPF Urine Mucus MODERATE H /LPF Urine Culture Indicated YES My Orders Orders - SHIRLEY REID Ua Culture If Indicated (08/30/19 11:53) Ed Iv/Invasive Line Start (08/30/19 11:53) Ns Iv 1000 Ml (Sodium Chloride 0.9%) (08/30/19 11:53) Kidney Stone (08/30/19 12:24) Urine Culture (08/30/19 12:10) Vital Signs/I&O 08/30/19 08/30/19 11:55 13:37 Temp 37.0 37.0 Pulse 91 91 Resp 16 16 B/P (MAP) 186/96 (126) 186/96 (126) Pulse Ox 96 96 O2 Delivery Room Air Capillary Refill : Progress Note : Time: 11:50 Progress Note Patient seen and evaluated, pacing in room and bending over exam table because of excruciating right lower quadrant and flank pain. Will give Toradol 30 mg IV for pain and fentanyl 50 mcg for pain, then Zofran 4 mg IV for nausea. Will ob tain UA and KUB x-ray. 1215 patient went to the restroom to provide a UA, he had immediate resolution of his pain. There is a small stone in the urine collection. Will cancel orders for Toradol, fentanyl and Zofran, as symptoms have completely resolved. Will obtain KUB to make sure no additional stones are present. 1310 discharge instructions and return precautions have been reviewed with the patient. UA does show urinary tract infection, we'll prescribe antibiotics for this. Departure Impression Primary Impression: Urinary tract infection Qualified Codes: N30.01 - Acute cystitis with hematuria Additional Impression: Urolithiasis Qualified Codes: N21.8 - Other lower urinary tract calculus Disposition: HOME, SELF-CARE Condition: Improved Departure-Patient Inst. Decision time for Depature: 13:10 Referrals: CALE UGALDE MD (PCP/Family) Primary Care Physician Patient Instructions: Kidney Stones (DC), Urinary Tract Infection, Adult (DC) Add. Discharge Instructions: Increase fluid intake, 16 ounces every 2 hours while awake. You may alternate between Tylenol 650 mg and ibuprofen 600 mg every 4 hours. Follow-up with your primary care provider if symptoms are not improving or worsen and for results of your stone analysis. Return to emergency department for new, urgent health care needs. Scripts Ciprofloxacin HCl (Ciprofloxacin HCl) 500 Mg Tablet 500 MG PO BID, #14 TAB 0 Refills Prov: SHIRLEY REID 08/30/19 Copy Copies To 1: CALE UGALDE MD, AMY ARNP Aug 30, 2019 12:03
--- NOTE | 2019-08-30 12:10 | NUR ---
PT STATES PAIN IS MUCH BETTER AFTER GOING TO THE BATHROOM. STONE NOTICED AT THE BOTTOM OF THE SPECIMAN CONTAINER. STONE STRAINED ET SENT TO LAB.
[2019-08-30 12:25] LABS: CLARITY,URINE CLOUDY; COLOR,URINE ORANGE; GLUCOSE, URINE (UA) NEGATIVE (NEGATIVE); KETONES,URINE NEGATIVE (NEGATIVE); LEUKOCYTE ESTERASE ,URINE NEGATIVE (NEGATIVE); NITRITE,URINE NEGATIVE (NEGATIVE); PH,URINE 5.5 (5-9); PROTEIN,URINE 1+ (NEGATIVE)
[2019-08-30 12:43] LABS: BACTERIA,URINE FEW /HPF; BILIRUBIN,URINE 1+ (NEGATIVE); RBC,URINE TNTC /HPF; SQUAMOUS EPITHELIAL CELL,UR 0-2 /HPF
[2019-08-30] MEDS ORDERED: CIPR500T4 PO (13:11)
[2019-08-30 13:37] VITALS: BP 186/96
== END 2019-08-30 13:37 | disposition home or self-care (01) ==
LOC: EDUNIT# 11:49 → ER 11:51
DX: N39.0 Urinary tract infection, site not specified (principal); N20.9 Urinary calculus, unspecified; F17.210 Nicotine dependence, cigarettes, uncomplicated
CPT/HCPCS: 81000; 87088; 88300; 96360